=== PATIENT | male | born 1970 | race Caucasian/White ===

== ENCOUNTER 2017-07-31 05:19 | Observation (INO) | payer BC, SELFPAY ==
[2017-07-31 06:05] LABS: Absolute Monocytes 0.6 K/uL (0.1-1.3); Absolute Neutrophil 3.8 K/uL (1.8-8.0); Basophils % 0.9 % (0-1.3); Eosinophils % 3.9 % (0-4.4); Hematocrit 48.9 % (39.6-49.0); Lymphocytes % 29.7 % (15.3-44.8); MCH 32.3 pg (27.0-35.0); MPV 7.6 fL (7.6-11.3); Monocytes % 9.1 % (3.3-12.3); RBC Red Blood Cell Count 5.04 M/uL (4.33-5.43)
[2017-07-31 06:35] LABS: BUN Blood Urea Nitrogen 8 mg/dL (7-18); Bicarbonate 27 mmol/L (21-32); CKMB Creatine Kinase MB < 1.0 ng/mL (0.3-3.6); Creatine Phosphokinase 120 U/L (39-308); Glucose Level 98 mg/dL (74-106); Potassium 3.9 mmol/L (3.5-5.1); Sodium Level 139 mmol/L (136-145)
--- NOTE | 2017-07-31 06:44 | ER ---
Nurse's Notes [facility] Name: Juan River Jr Age: 46 yrs Sex: Male : 1970 Arrival Date: 07/31/2017 Time: 05:23 Bed 6 Private MD: Haim Oneal R Diagnosis: Chest pain, unspecified Presentation: 07/31 05:32 Presenting complaint: Patient states: "I have chest tightness, on and off, for months rv that radiates to my left arm.". Transition of care: patient was not received from another setting of care. Onset of symptoms was July 31, 2017 at 04:30. Risk Assessment: Do you want to hurt yourself or someone else? Patient reports no desire to harm self or others. Initial Sepsis Screen: Does the patient meet any 2 criteria? No. Patient's initial sepsis screen is negative. Does the patient have a suspected source of infection? No. Patient's initial sepsis screen is negative. Care prior to arrival: None. 05:32 Method Of Arrival: Ambulatory rv 05:32 Acuity: MARCO ANTONIO 4 rv 05:38 Acuity: MARCO ANTONIO 3 ao Triage Assessment: 06:00 General: Appears in no apparent distress. comfortable, Behavior is calm, cooperative. rv Pain: Complains of pain in chest Pain radiates to left arm. Cardiovascular: Reports chest pain, since waking up. Historical: - Allergies: 05:44 No Known Allergies; rv - Home Meds: 05:44 None [Active]; rv - PMHx: 05:44 Anxiety; Asthma; Hypertension; TIA; rv - PSHx: 05:44 shoulder surgery; rv - Immunization history:: Adult Immunizations up to date. - Social history:: Smoking status: Patient uses tobacco products, denies chronic smoking, but will smoke occasionally, Patient/guardian denies using alcohol, street drugs. - Ebola Screening: : Patient negative for fever greater than or equal to 101.5 degrees Fahrenheit, and additional compatible Ebola Virus Disease symptoms Patient denies exposure to infectious person Patient denies travel to an Ebola-affected area in the 21 days before illness onset. - Family history:: not pertinent. - Hospitalizations: : No recent hospitalization is reported. Screenin:59 Abuse screen: Denies threats or abuse. Denies injuries from another. Nutritional rv screening: No deficits noted. Tuberculosis screening: No symptoms or risk factors identified. Fall Risk None identified. Assessment: 05:57 Pain: Complains of pain in chest Pain radiates to left arm Pain began 1 hour ago. rv Neuro: Level of Consciousness is awake, alert, obeys commands, Oriented to person, place, time, situation. Cardiovascular: Capillary refill < 3 seconds Rhythm is regular. Respiratory: Airway is patent. GI: No signs and/or symptoms were reported involving the gastrointestinal system. : No signs and/or symptoms were reported regarding the genitourinary system. EENT: No signs and/or symptoms were reported regarding the EENT system. Derm: Skin is intact. 06:20 Reassessment: Patient appears in no apparent distress at this time. Patient and/or rv family updated on plan of care and expected duration. Pain level reassessed. Patient is alert, oriented x 3, equal unlabored respirations, skin warm/dry/pink. patient comfortable lying on bed. 06:46 Reassessment: Patient appears in no apparent distress at this time. Patient and/or rv family updated on plan of care and expected duration. Pain level reassessed. Patient is alert, oriented x 3, equal unlabored respirations, skin warm/dry/pink. patient is awake. on high back rest. comfortable. awaiting admitting orders. 07:21 Reassessment: Patient appears in no apparent distress at this time. Patient and/or iw family updated on plan of care and expected duration. Pain level reassessed. Patient is alert, oriented x 3, equal unlabored respirations, skin warm/dry/pink. pt requesting breakfast tray, order placed Patient denies pain at this time. Vital Signs: 05:46 BP 149 / 102; Pulse 82; Resp 16; Temp 98.6(O); Pulse Ox 95% on R/A; Weight 102.06 kg; rv 06:20 BP 132 / 98; Pulse 73; Resp 16; Pulse Ox 97% on R/A; rv 07:21 BP 147 / 85; Pulse 67; Resp 16; Pulse Ox 97% on R/A; Pain 0/10; iw ED Course: 05:23 Patient arrived in ED. al2 05:24 Haim Oneal MD is Private Physician. al2 05:33 Paulie Aviles, MARII is Primary Nurse. bp 05:34 Triage completed. rv 05:35 Justice Jiménez MD is Attending Physician. rn 05:57 X-ray completed. Portable x-ray completed in exam room. Patient tolerated procedure kw well. 05:57 XRAY Chest (1 view) In Process Unspecified. EDMS 05:59 Inserted saline lock: 20 gauge in right antecubital area, using aseptic technique. rv Patient maintains SpO2 saturation greater than 95% on room air. 06:00 Arm band placed on left wrist. rv 06:01 Patient has correct armband on for positive identification. Placed in gown. Bed in low rv position. Call light in reach. Side rails up X2. ground mixer on. Pulse ox on. NIBP on. 06:43 Justice Jiménez MD is Hospitalizing Provider. rn 06:43 Haim Oneal MD is Hospitalizing Provider. rn Administered Medications: 06:44 Drug: Aspirin Chewable Tablet 324 mg Route: PO; rv Outcome: 06:43 Decision to Hospitalize by Provider. rn 09:13 Patient left the ED. iw Signatures: Dispatcher [employer] EDMS Carley Rodarte RN RN iw Justice Jiménez MD MD rn Whitley, Kimberlee kw Ortiz, Alex, RN RN ao Peltier, Brian, RN RN bp Love, Angelica al2 Vicente, Ronaldo RN RN rv
--- NOTE | 2017-07-31 06:44 | EDPHYS ---
Physician Documentation [facility] Name: Juan River Jr Age: 46 yrs Sex: Male : 1970 Arrival Date: 07/31/2017 Time: 05:23 Bed 6 Private MD: Haim Oneal R ED Physician Justice Jiménez HPI: 07/31 05:44 This 46 yrs old Male presents to ER via Ambulatory with complaints of Chest rn Pain, Numbness Of Arm. 05:44 The patient or guardian reports chest pain that is located primarily in the anterior rn chest wall, left. Onset: 2 month(s) ago. The pain radiates to the left arm. Associated signs and symptoms: Pertinent positives: None. Pertinent negatives: diaphoresis, lightheadedness, near syncope, palpitations, recent travel, shortness of breath, syncope, vomiting. The chest pain is described as sharp, squeezing. Duration: The patient or guardian reports multiple episodes, that are intermittent, the episodes last approximately 5 minute(s). Modifying factors: The symptoms are alleviated by nothing. the symptoms are aggravated by nothing. Severity of pain: At its worst the pain was mild in the emergency department the pain has improved. The patient has experienced similar episodes in the past. Reports a couple of months of worsening chest tightness, intermittent, lasts 5-10 min, radiates to left arm, + tingling of left arm . 05:44 Chest tightness happening more frequently, states normal stress test 6 years ago when rn had TIA.. States these episodes feel different compared to previous anxiety attacks.. Historical: - Allergies: 05:44 No Known Allergies; rv - Home Meds: 05:44 None [Active]; rv - PMHx: 05:44 Anxiety; Asthma; Hypertension; TIA; rv - PSHx: 05:44 shoulder surgery; rv - Immunization history:: Adult Immunizations up to date. - Social history:: Smoking status: Patient uses tobacco products, denies chronic smoking, but will smoke occasionally, Patient/guardian denies using alcohol, street drugs. - Ebola Screening: : Patient negative for fever greater than or equal to 101.5 degrees Fahrenheit, and additional compatible Ebola Virus Disease symptoms Patient denies exposure to infectious person Patient denies travel to an Ebola-affected area in the 21 days before illness onset. - Family history:: not pertinent. - Hospitalizations: : No recent hospitalization is reported. ROS: 05:44 Constitutional: Negative for fever, chills, and weight loss, Eyes: Negative for injury, rn pain, redness, and discharge, Neck: Negative for injury, pain, and swelling, Cardiovascular: Negative for palpitations, and edema, Respiratory: Negative for shortness of breath, cough, wheezing, and pleuritic chest pain, Abdomen/GI: Negative for abdominal pain, nausea, vomiting, diarrhea, and constipation, MS/Extremity: Negative for injury and deformity, Skin: Negative for injury, rash, and discoloration, Neuro: Negative for headache, weakness, and seizure. Exam: 05:44 Constitutional: This is a well developed, well nourished patient who is awake, alert, rn and in no acute distress. Head/Face: Normocephalic, atraumatic. Neck: Trachea midline, no thyromegaly or masses palpated, and no cervical lymphadenopathy. Supple, full range of motion without nuchal rigidity, or vertebral point tenderness. No Meningismus. Cardiovascular: Regular rate and rhythm with a normal S1 and S2. No gallops, murmurs, or rubs. Normal PMI, no JVD. No pulse deficits. Respiratory: Lungs have equal breath sounds bilaterally, clear to auscultation and percussion. No rales, rhonchi or wheezes noted. No increased work of breathing, no retractions or nasal flaring. Abdomen/GI: Soft, non-tender, with normal bowel sounds. No distension or tympany. No guarding or rebound. No evidence of tenderness throughout. MS/ Extremity: Pulses equal, no cyanosis. Neurovascular intact. Full, normal range of motion. Equal circumference. Neuro: Awake and alert, GCS 15, oriented to person, place, time, and situation. Cranial nerves II-XII grossly intact. Motor strength 5/5 in all extremities. Sensory grossly intact. Cerebellar exam normal. Normal gait. Vital Signs: 05:46 BP 149 / 102; Pulse 82; Resp 16; Temp 98.6(O); Pulse Ox 95% on R/A; Weight 102.06 kg; rv 06:20 BP 132 / 98; Pulse 73; Resp 16; Pulse Ox 97% on R/A; rv 07:21 BP 147 / 85; Pulse 67; Resp 16; Pulse Ox 97% on R/A; Pain 0/10; iw MDM: 05:35 Patient medically screened. rn 06:41 Differential diagnosis: acute myocardial infarction, acute pericarditis, anxiety, rn coronary artery disease gastroesophageal reflux disease (GERD), pancreatitis, pleurisy, pneumothorax, stable angina, unstable angina. Data reviewed: vital signs, nurses notes, lab test result(s), EKG, radiologic studies, and as a result, I will admit patient. Counseling: I had a detailed discussion with the patient and/or guardian regarding: the historical points, exam findings, and any diagnostic results supporting the discharge/admit diagnosis, lab results, radiology results, the need for further work-up and treatment in the hospital. Admission orders: after a detailed discussion of the patient's condition and case, the admit orders are written by me. ED course: Consulted with maribel Riddle for cardiac eval.. 07/31 05:43 Order name: Basic Metabolic Panel; Complete Time: 06:39 rn 07/31 05:43 Order name: CBC with Diff; Complete Time: 06:16 rn 07/31 05:43 Order name: Ckmb; Complete Time: 06:39 rn 07/31 05:43 Order name: CPK; Complete Time: 06:39 rn 07/31 05:43 Order name: Troponin (emerg Dept Use Only); Complete Time: 06:29 rn 07/31 05:43 Order name: XRAY Chest (1 view) rn 07/31 05:43 Order name: EKG; Complete Time: 05:44 rn 07/31 05:43 Order name: Cardiac monitoring; Complete Time: 05:47 rn 07/31 05:43 Order name: EKG - Nurse/Tech; Complete Time: 05:47 rn 07/31 05:43 Order name: IV Saline Lock; Complete Time: 05:52 rn 07/31 05:43 Order name: Labs collected and sent; Complete Time: 05:52 rn 07/31 05:43 Order name: O2 Per Protocol; Complete Time: 05:47 rn 07/31 07:20 Order name: Diet Heart Healthy; Complete Time: 07:21 iw 07/31 05:43 Order name: O2 Sat Monitoring; Complete Time: 05:47 rn Administered Medications: 06:44 Drug: Aspirin Chewable Tablet 324 mg Route: PO; rv Disposition: 07/31/17 06:43 Hospitalization ordered by Haim Oneal for Observation. Preliminary diagnosis is Chest pain, unspecified. - Bed requested for Telemetry/MedSurg (observation). - Status is Observation. iw - Condition is Stable. - Problem is an ongoing problem. - Symptoms have improved. UTI on Admission? No Signatures: Dispatcher [employer] EDMS Lise Red Carley Toscano RN RN iw Justice Jiménez MD MD rn Botello, Elizabeth eb Vicente, Ronaldo, RN RN rv Corrections: (The following items were deleted from the chart) 06:52 06:43 Hospitalization Ordered by Haim Oneal MD for Observation. Preliminary diagnosis eb is Chest pain, unspecified. Bed requested for Telemetry/MedSurg (observation). Status is Observation. Condition is Stable. Problem is an ongoing problem. Symptoms have improved. UTI on Admission? No. rn 08:11 06:52 07/31/2017 06:43 Hospitalization Ordered by Haim Oneal MD for Observation. bd Preliminary diagnosis is Chest pain, unspecified. Bed requested for Telemetry/MedSurg (observation). Status is Observation. Condition is Stable. Problem is an ongoing problem. Symptoms have improved. UTI on Admission? No. eb 09:13 08:11 07/31/2017 06:43 Hospitalization Ordered by Haim Oneal MD for Observation. iw Preliminary diagnosis is Chest pain, unspecified. Bed requested for Telemetry/MedSurg (observation). Status is Observation. Condition is Stable. Problem is an ongoing problem. Symptoms have improved. UTI on Admission? No. bd
[2017-07-31] MEDS ORDERED: ASPIRIN 81 MG CHEWABLE TABLET ONE (06:45)
--- NOTE | 2017-07-31 08:17 | RAD REPORT ---
EXAM DESCRIPTION: RAD - Chest Single View - 07/31/2017 5:57 am CLINICAL HISTORY: CHEST PAIN Chest pain. COMPARISON: Chest Pa And Lat (2 Views) dated 08/23/2016; Chest Single View dated 08/22/2016; Chest Sin gle View dated 08/19/2016; CHEST SINGLE VIEW dated 04/13/2015 FINDINGS: Portable technique limits examination quality. The lungs are grossly clear. The heart is normal in size. No displaced fractures. IMPRESSION: No acute intrathoracic process suspected.
[2017-07-31] MEDS ORDERED: ONDANSETRON 4 MG/2 ML VIAL IV PRN (09:25)
[2017-07-31] MEDS ORDERED: ACETAMINOPHEN 500 MG TAB PO PRN (09:25)
[2017-07-31] MEDS: ASPIRIN EC 81 MG TAB PO SCH (09:25)
[2017-07-31 09:43] VITALS: BMI 33.2
[2017-07-31] MEDS: ENOXAPARIN 100 MG/ML SYR SQ SCH ×2 (14:36→20:18)
--- NOTE | 2017-07-31 15:42 | EKG ---
Test Date: 2017-07-31 Test Time: 05:34:34 Marketing Support Specialist: DAINA MEASUREMENT RESULTS: Intervals: Rate: 74 [place]: 146 QRSD: 90 QT: 364 QTc: 404 [place]: P: -6 [place]: 146 QRS: 42 T: 34 INTERPRETIVE STATEMENTS: Normal sinus rhythm with sinus arrhythmia Normal ECG Compared to ECG 08/22/2016 03:57:09 No significant changes Electronically Signed On 07-31-17 15:40:33 CDT by Salomón Parish
--- NOTE | 2017-07-31 18:09 | CON ---
Date of Consultation: 07/31/[address] Oneal' service on 07/31/2017. I saw the patient on 07/31/2017. Reason For Consultation: Chest pain. History Of Present Illness: Mr. River is a 46-year-old male, who has no previous cardiac history. He has a history of TIA 2 years ago with negative workup. Has a history of hypertension, asthma, a nd anxiety. Came in with a sharp stabbing chest pain over the left anterior wall with numbness in analisa th hands that is unrelated to the pain per se. This pain did not radiate anywhere. He did not have any nausea, vomiting, diaphoresis, shortness of breath, PND, orthopnea, pedal edema, or syncope. By the time I saw him, he had a normal EKG, normal chest x-ray, and normal troponin. Allergies: NONE. Review of Systems: Negative. Social History: Negative. Family History: Noncontributory. Medications: At home are none. Physical Examination: Vital Signs: Stable. He was afebrile. HEENT: Negative. Neck: Supple without any bruit, lymphadenopathy, JVD, or thyromegaly. Chest: Clear to auscultation and percussion. Cardiac: Revealed a regular rhythm and rate without any murmurs, gallops, or rubs. Abdomen: Benign. Extremities: Revealed no clubbing, cyanosis, or edema. Diagnostic Data: Normal. Impression And Plan: Atypical chest pain, sounds pleuritic or may be anxiety related. I think the n umbness in his hands may be positional and certainly could be related to carpal tunnel syndrome. His blood pressure is well controlled. He has had a history of transient ischemic attack with negative workup. He has asthma that is well controlled. I recommended a nuclear stress test on Mr. River, but he was very hesitant to have any injectable medication in him. We will suffice with a normal EK G that he can have a normal routine stress test in the morning before he goes home. KIT/DOMINIQUE Voice ID: [id number] Report ID: [id number]
[2017-08-01] MEDS: ASPIRIN EC 81 MG TAB PO SCH (09:01)
[2017-08-01] MEDS: ENOXAPARIN 100 MG/ML SYR SQ SCH (09:01)
[2017-08-01 09:17] VITALS: O2SAT 96
--- NOTE | 2017-08-01 09:25 | EKG ---
Test Date: 2017-08-01 Test Time: 07:13:31 Block Captain: THOMAS MEASUREMENT RESULTS: Intervals: Rate: 66 DC: 158 QRSD: 92 QT: 390 QTc: 408 [place]: P: 15 DC: 158 QRS: 65 T: 52 INTERPRETIVE STATEMENTS: Normal sinus rhythm Early repolarization Normal ECG Compared to ECG 07/31/2017 05:34:34 Early repolarization now present Sinus arrhythmia no longer present Electronically Signed On 08-01-17 09:24:17 CDT by Eduar Mcnair
--- NOTE | 2017-08-01 09:56 | TREADMILL ---
70% H.R.: 122 85% H.R.: 148 90% H.R.: 157 100% H.R.: 174 DX: CHEST PAIN Date of Study: 08/01/2017 Ht: 5 9 Wt: 225 lb 0 oz Consulting Physician: CHINA MEDICATIONS: TYLENOL, ASPIRIN, LOVENOX, ZOFRAN HISTORY: 46 YEAR OLD MALE WITH COMPLAINTS OF CHEST PAIN. HISTORY OF HYPERTENSION, TRANSIENT ISCHEMIC ATTACK AND ASTHMA. PHYSICIAL EXAMINATION: RESTING B.P.: 135/94 RESTING H.R.: 78 RESTING EKG: EARLY REPOLARIZATION ABNORMALITY, OTHERWISE NORMAL. PROTOCOL: FLORENTIN ROUTINE EXERCISE TIME: 11:06 MAXIMUM HEART RATE: 150 86 % OF PREDICTED B.P. AT PEAK STRESS: 152/108 H.R. AT 1 MINUTE POST EXERCISE: 137 IMPRESSION: ROUTINE FLORENTIN STOPPED DUE TO FATIGUE AND TARGET HEART RATE BEING REACHED. NO CHEST PAIN. NO SUPRAVENTRICULAR OR VENTRICULAR TACHYCARDIA NOTED. NO ST DEPRESSION WITH STRESS. EARLY REPOLARIZATION NORMALIZED WITH STRESS. NORMAL STRESS TEST.
[2017-08-01 12:11] VITALS: BP 124/79; TEMP 98.6
--- NOTE | 2017-08-01 18:19 | HP ---
Date of Admission: 07/31/2017 Chief Complaint: Chest pain. History Of Present Illness: A 46-year-old male was brought to the emergency room with recurrent epis odes of left precordial chest pain with radiation and tingling in the arms. The patient had evaluati on done in the emergency room. There was no evidence of any acute injury. The patient is admitted f or observation. Past Medical History: History of anxiety and labile hypertension. Family History: Noncontributory. Personal History: No known drug allergies. Current Medicines: None. Review of Systems: No history of fever, chills, or rigors. Physical Examination: General: Revealed 46-year-old male, fully alert and oriented. Vital Signs: Normal. HEENT: Negative. Neck: Supple. JVD negative. Chest: Clear. Heart: Regular. Abdomen: Soft, nontender. Extremities: No edema. Neurological: Negative. Laboratory Data: Troponin normal. CBC normal. Chem profile normal. Chest x-ray normal. Assessment: 1.Chest pain. 2.Labile hypertension. 3.Anxiety. Plan: The patient is scheduled for stress test today after which plan will be decided. UCHE/DOMINIQUE Voice ID: [id number]
== END 2017-08-01 14:09 | disposition home or self-care (01) ==
LOC: ER 05:19 → ERHOLD 06:44 → 4TH 08:25
PROVIDERS: ADMIT Internal Medicine; ATTEND Internal Medicine
DX: R07.89 Other chest pain (principal); F41.9 Anxiety disorder, unspecified; R09.89 Other specified symptoms and signs involving the circulatory and respiratory systems
CPT/HCPCS: 36415; 71045; 80048; 82550; 82553; 84484; 85025; 93005; 93017; 99285; G0378; J1650

== ENCOUNTER 2021-05-31 01:17 | Observation (INO) | payer OTHER ==
--- OUTSIDE RECORDS SUMMARY | 2021-05-31 01:21 | XMS REPORT | Continuity of Care Document ---
:1970 Author Organization [facility] t Address [address] [place] [address] Care Team Providers Name Role Phone Oscar GARLAND MACHINE OPERATOR Attending Clinician Tommy, Care Clinic Attending Clinician Unavailable Kathleen GARLAND MACHINE OPERATOR Attending Clinician KATHLEEN Attending Clinician Unavailable Payers Payer Name Policy Type Policy Number Effective Date Expiration Date S ource Problems Condition Condition Condition Status Onset Resolution Last Treating Co mments Source Name Details Category Date Date Treatment Clinician Date Seasonal Seasonal Disease Active Unive rs allergies allergies 5-14 ity of 00:00: [place] 00 [facility] [place] Allergies, Adverse Reactions, Alerts Allergy Allergy Status Severity Reaction(s) Onset Inactive Treating Comm ents Source Name Type Date Date Clinician NO KNOWN Drug [facility] Social History Social Habit Start Date Stop Date Quantity Comments Source History of tobacco [facility] Sex Assigned At [facility] Smoking Status Start Date Stop Date Source Former smoker 2019-06-19 00:00:00 2019-06-19 00:00:00 [facility] [place] Medications Ordered Filled Start Stop Current Ordering Indication Dosage Frequency Signature Comments Components Source Medication Medication Date Date Medication? Clinician (SIG) Name Name fluticasone 2019-0 Yes [id number] 1{spray Use 1 Univers 27.5 5-14 } Arma in ity of mcg/actuati 00:00: each [place] on nasal 00 nostril Medical spray daily. Branch cetirizine Yes [id number] 10mg Take 1 U nivers 10 mg 5-14 tablet by ity of tablet 00:00: mouth [place] 00 daily. Medical Branch fluticasone Yes [id number] 1{spray Use 1 Univers 27.5 5-14 } Arma in ity of mcg/actuati 00:00: each [place] on nasal 00 nostril Medical spray daily. Branch cetirizine 2019-0 Yes [id number] 10mg Take 1 U nivers 10 mg 5-14 tablet by ity of tablet 00:00: mouth [place] 00 daily. Medical Branch fluticasone 2019-0 Yes [id number] 1{spray Use 1 Univers 27.5 5-14 } Arma in ity of mcg/actuati 00:00: each [place] on nasal 00 nostril Medical spray daily. Branch cetirizine 0 Yes [id number] 10mg Take 1 U nivers 10 mg 5-14 tablet by ity of tablet 00:00: mouth [place] 00 daily. Medical Branch fluticasone 2019-0 Yes [id number] 1{spray Use 1 Univers 27.5 5-14 } Arma in ity of mcg/actuati 00:00: each [place] on nasal 00 nostril Medical spray daily. Branch cetirizine Yes [id number] 10mg Take 1 U nivers 10 mg 5-14 tablet by ity of tablet 00:00: mouth [place] 00 daily. Medical Branch naproxen 2020- No 550mg Take 1 Unive rs sodium 7-16 05-14 tablet by ity of (ANAPROX) 00:00[place] 00:[place] 550 mg 00 :00 (two) Medical tablet times Branch daily with meals. traMADOL 2020- No 50mg Take 1 Univer s (ULTRAM) 50 7-16 05-14 tablet by it y of mg tablet 00:00: 00:00 mouth [place] 00 :00 every 6 Medical (six) Branch hours as needed for Pain (scale 7-10). tiZANidine 2020- No 4mg Take 1 Univ ers (ZANAFLEX) 7-16 05-14 capsule by it y of 4 mg 00:00: 00:00 mouth 3 [place] capsule 00 :00 (three) Medical times Branch daily as needed for Muscle Spasms. naproxen 2020- No 550mg Take 1 Unive rs sodium 7-16 05-14 tablet by ity of (ANAPROX) 00:00: 00:00 [place] 550 mg 00 :00 (two) Medical tablet times Branch daily with meals. traMADOL 2019- No [facility] 08-20 tablet by it y of mg tablet 00:00: 00:00 mouth [place] 00 :00 every 6 Medical (six) Branch hours as needed for Pain (scale 7-10). tiZANidine 2019- No 4mg Take 1 [facility] ers (ZANAFLEX) 08-20 capsule by it y of 4 mg 00:00: 00:00 mouth 3 [place] capsule 00 :00 (three) Medical times Branch daily as needed for Muscle Spasms. Vital Signs Vital Name Observation Time Observation Value Comments Source Systolic blood 2019-06-19 16:19:00 120 mm[facility]Hg[facility] 2019-06-19 16:19:00 87 mm[Hg] [facility] Heart rate 2019-06-19 16:19:00 84 /min [facility] Body temperature 2019-06-19 16:19:00 37.22 Marjan [facility] Respiratory rate 2019-06-19 16:19:00 18 /min [facility] Body height 2019-06-19 16:19:00 175.3 cm [facility] Body weight 2019-06-19 16:19:00 99.791 kg [facility] BMI 2019-06-19 16:19:00 32.49 kg/m2 [facility] Oxygen saturation in 2019-06-19 16:19:00 98 /min [facility] blood by [facility] Pulse oximetry Branch Procedures Procedure Date / Time Performing Clinician Source Performed POCT GRP A STREP 2019-06-19 16:28:00 King Reyna [facility] (MOLECULAR) [facility] CORONAVIRUS COVID-19 2019-06-19 16:13:00 King Reyna [facility] TESTING [facility] Encounters Start End Encounter Admission Attending Care Care Encounter Source Date/Time Date/Time Type Type Clinicians Facility Department ID 2019-06-20 2019-06-20 Telephone JD Moore [id number] [facility] 00:00:00 00:00:00 Yelitza FELICIANO [id number] it y of HOSPITAL [id number] [place] [id number] [address] 2019-06-19 2019-06-19 Urgent Pob1, Acute Care Clinic [facility] [id number] Univers 11:08:58 12:10:41 King Bernardo [id number] ity of [place] [id number] [place] as Professio [phone] Al dical nal [address] 2019-06-19 2019-06-19 Outpatient R KATHLEEN [facility] [id number] Univers 11:00:00 11:00:00 KING snell [facility] 2019-06-19 2019-06-19 Jacqui Oscar, [facility] [id number] Univers 00:00:00 00:00:00 (Out) Yelitza Barton [id number] it y of [place] [id number] [place] as Professio [id number] [facility] nal [address] Results Test Description Test Time Test Comments Results Result Comments Source CORONAVIRUS COVID-19 TESTING 2019-06-20 05:28:00 Test Item Value Reference Range Interpretation Comme nts SARS-CoV-2 (test code = 64757-7) Not Detected Not Detected BEV (test code = BEV) [employer] SARS-CoV-2 Assay is a real-time RT-PCR test intended for the qualitative detection of RNA from SARS-CoV-2 from nasopharyngeal (LENS POLISHER HAND) specimens. It is used under Emergency Use Authorization (EUA) by FDA. A positive result is indicative of the presence of SARS-CoV-2 RNA. ?Clinical correlation with patient history and other diagnostic information is necessary to determine patient infection status. A negative (Not Detected) result does not preclude SARS-CoV-2 infection. Clinical correlation with patient history and other diagnostic information should be used in patient management decisions. Invalid: Please collect a new specimen for repeat patient testing if clinically indicated. Lab Interpretation (test code = Normal 17620-2) [facility]-19 [id number] 05:28:00 Test Item Value Reference Range Interpretation Comments SARS-CoV-2 (test code = Not Detected Not Detected 37079-9) BEV (test code = BEV) [employer] SARS-CoV-2 Assay is a real-time RT-PCR test intended for the qualitative detection of RNA from SARS-CoV-2 from nasopharyngeal (LENS POLISHER HAND) specimens. It is used under Emergency Use Authorization (EUA) by FDA. A positive result is indicative of the presence of SARS-CoV-2 RNA. ?Clinical correlation with patient history and other diagnostic information is necessary to determine patient infection status. A negative (Not Detected) result does not preclude SARS-CoV-2 infection. Clinical correlation with patient history and other diagnostic information should be used in patient management decisions. Invalid: Please collect a new specimen for repeat patient testing if clinically indicated. Lab Interpretation Normal (test code = 02176-4) [facility] GRP A STREP (MOLECULAR)2019-06-19 16:36:00 Test Item Value Reference Range Interpretation Comments POCT GP A STREP (test Negative Negative - code = 18083-0) Negative BEV (test code = BEV) accurate development and interpretation of all internal controls Lab Interpretation Normal (test code = 06554-5) [facility] GRP A STREP (MOLECULAR)2019-06-19 16:36:00 Test Item Value Reference Range Interpretation Comments POCT GP A STREP (test Negative Negative - code = 04072-1) Negative BEV (test code = BEV) accurate development and interpretation of all internal controls Lab Interpretation Normal (test code = 15339-0) [facility]
[2021-05-31] MEDS ORDERED: DIPHENHYDRAMINE 50 MG/ML VIAL ONE (02:17)
[2021-05-31] MEDS ORDERED: dexAMETHasone 10 MG/ML VIAL ONE ×2 (02:17→03:11)
[2021-05-31] MEDS ORDERED: NA CHLORIDE 0.9% 1,000 ML ONE (02:18)
[2021-05-31] MEDS ORDERED: CLINDAMYCIN 900MG/D5W 900 MG/50 ML IVPB IV ONE (02:18)
[2021-05-31] MEDS ORDERED: NA CHLORIDE 0.9% 50 ML ONE (02:18)
[2021-05-31] MEDS ORDERED: CEFTRIAXONE 2000 MG/VIAL ONE (02:18)
[2021-05-31] MEDS ORDERED: FAMOTIDINE 20 MG/2 ML VIAL IV ONE (02:18)
[2021-05-31 02:43] LABS: Absolute Lymphocytes (CBC) 1.1 K/uL (0.7-4.9); Hematocrit 45.4 % (39.6-49.0); Lymphocytes % 9.2 % (15.3-44.8); MPV 7.8 fL (7.6-11.3); RBC Red Blood Cell Count 4.72 M/uL (4.33-5.43)
[2021-05-31 02:51] LABS: Albumin 3.5 g/dL (3.4-5.0); Bilirubin Total 0.5 mg/dL (0.2-1.0); Protein, Total 7.2 g/dL (6.4-8.2)
--- NOTE | 2021-05-31 03:59 | EDPHYS ---
Physician Documentation [facility] Name: Juan River Jr Age: 50 yrs Sex: Male : 1970 Arrival Date: 05/31/2021 Time: 01:20 Bed 5 Private MD: ED Physician Eriberto Adair HPI: 05/31 01:47 This 50 yrs old Male presents to ER via Unassigned with complaints of Sore arleth Throat. 01:47 The patient presents with sore throat. The patient describes throat pain as constant, arleth raw, scratchy. Onset: The symptoms/episode began/occurred 3 day(s) ago. Severity of symptoms: At their worst the symptoms were mild, in the emergency department the symptoms are unchanged. Modifying factors: The symptoms are alleviated by nothing, the symptoms are aggravated by fluids, sleeping. Associated signs and symptoms: Pertinent positives: chills, cough, fever. The patient has not experienced similar symptoms in the past. Historical: - Allergies: 01:50 No Known Allergies; bb - PMHx: 01:50 Anxiety; Asthma; Hypertension; TIA; bb - Immunization history:: Client reports receiving the 2nd dose of the Covid vaccine, Moderna. - Social history:: Smoking status: Patient denies any tobacco usage or history of. - Family history:: not pertinent. ROS: 01:50 Constitutional: Negative for fever, chills, and weight loss, Eyes: Negative for injury, arleth pain, redness, and discharge, Neck: Negative for injury, pain, and swelling, Cardiovascular: Negative for chest pain, palpitations, and edema, Respiratory: Negative for shortness of breath, cough, wheezing, and pleuritic chest pain, Abdomen/GI: Negative for abdominal pain, nausea, vomiting, diarrhea, and constipation, Back: Negative for injury and pain, : Negative for injury, bleeding, discharge, and swelling, MS/Extremity: Negative for injury and deformity, Skin: Negative for injury, rash, and discoloration, Neuro: Negative for headache, weakness, numbness, tingling, and seizure, Psych: Negative for depression, anxiety, suicide ideation, homicidal ideation, and hallucinations, Allergy/Immunology: Negative for hives, rash, and allergies, Endocrine: Negative for neck swelling, polydipsia, polyuria, polyphagia, and marked weight changes, Hematologic/Lymphatic: Negative for swollen nodes, abnormal bleeding, and unusual bruising. 01:50 ENT: Positive for difficulty swallowing. 01:50 Neck: Positive for swollen nodes, tenderness, of the right submandibular area and right sternocleidomastoid. Exam: 01:50 Constitutional: This is a well developed, well nourished patient who is awake, alert, arleth and in no acute distress. Head/Face: Normocephalic, atraumatic. Eyes: Pupils equal round and reactive to light, extra-ocular motions intact. Lids and lashes normal. Conjunctiva and sclera are non-icteric and not injected. Cornea within normal limits. Periorbital areas with no swelling, redness, or edema. Neck: Trachea midline, no thyromegaly or masses palpated, and no cervical lymphadenopathy. Supple, full range of motion without nuchal rigidity, or vertebral point tenderness. No Meningismus. Chest/axilla: Normal chest wall appearance and motion. Nontender with no deformity. No lesions are appreciated. Cardiovascular: Regular rate and rhythm with a normal S1 and S2. No gallops, murmurs, or rubs. Normal PMI, no JVD. No pulse deficits. Respiratory: Lungs have equal breath sounds bilaterally, clear to auscultation and percussion. No rales, rhonchi or wheezes noted. No increased work of breathing, no retractions or nasal flaring. Abdomen/GI: Soft, non-tender, with normal bowel sounds. No distension or tympany. No guarding or rebound. No evidence of tenderness throughout. Back: No spinal tenderness. No costovertebral tenderness. Full range of motion. Male : Normal genitalia with no discharge or lesions. Skin: Warm, dry with normal turgor. Normal color with no rashes, no lesions, and no evidence of cellulitis. MS/ Extremity: Pulses equal, no cyanosis. Neurovascular intact. Full, normal range of motion. Neuro: Awake and alert, GCS 15, oriented to person, place, time, and situation. Cranial nerves II-XII grossly intact. Motor strength 5/5 in all extremities. Sensory grossly intact. Cerebellar exam normal. Normal gait. Psych: Awake, alert, with orientation to person, place and time. Behavior, mood, and affect are within normal limits. 01:50 ENT: Posterior pharynx: Tonsils: enlarged on the right, with erythema, Uvula: edematous, erythema, swelling, erythema, that is mild, exudate, is not appreciated, peritonsillar mass, is not appreciated, Voice: is muffled. Vital Signs: 01:48 BP 151 / 88; Pulse 107; Resp 16 S; Temp 98.5(O); Pulse Ox 94% on R/A; Weight 106.59 kg bb (R); Height 5 ft. 9 in. (175.26 cm) (R); Pain 9/10; 02:31 BP 132 / 86; Pulse 104; Resp 18 S; Pulse Ox 100% on R/A; as6 03:51 BP 131 / 90; Pulse 111; Resp 20 S; Pulse Ox 94% on R/A; as6 01:48 Body Mass Index 34.70 (106.59 kg, 175.26 cm) bb MDM: 01:40 Patient medically screened. [facility] 01:52 Differential diagnosis: echovirus infection, epiglottitis, group A strep tonsillitis, arleth laryngitis, mononucleosis, peritonsillar abscess pharyngitis, retropharyngeal abcess tonsillitis, upper respiratory infection. Data reviewed: vital signs, nurses notes, lab test result(s), radiologic studies, CT scan. Data interpreted: copywriting intern: rate is 107 beats/min, rhythm is atrial fibrillation, Pulse oximetry: on room air is 94 %. Test interpretation: by ED physician or midlevel provider: plain radiologic studies. Counseling: I had a detailed discussion with the patient and/or guardian regarding: the historical points, exam findings, and any diagnostic results supporting the discharge/admit diagnosis, lab results, radiology results. 05/31 01:45 Order name: CBC with Diff; Complete Time: 03:00 [facility] 05/31 01:45 Order name: Comprehensive Metabolic Panel; Complete Time: 03:00 [facility] 05/31 01:45 Order name: Strep; Complete Time: 03:22 [facility] 05/31 03:03 Order name: Throat Culture [facility] 05/31 04:07 Order name: COVID-19/FLU A+B (Document "Date of Onset" if Symptomatic) as6 05/31 05:44 Order name: COVID-19/FLU A+B; Complete Time: 09:20 [facility] 05/31 01:46 Order name: CT Soft Tissue Neck W/contr arleth 05/31 01:47 Order name: Chest Single View XRAY arleth Administered Medications: 02:25 Drug: Pepcid (famotidine) 20 mg Route: IVP; Site: right antecubital; as6 03:51 Follow up: Response: No adverse reaction as6 02:25 Drug: Benadryl (diphenhydrAMINE) 25 mg Route: IVP; Site: right antecubital; as6 03:51 Follow up: Response: No adverse reaction as6 02:25 Drug: Clindamycin 900 mg Route: IVPB; Infused Over: 30 mins; Site: right antecubital; as6 03:51 Follow up: Response: No adverse reaction; IV Status: Completed infusion; IV Intake: 25izym8 02:26 Drug: NS 0.9% 1000 ml Route: IV; Rate: 1 bolus; Site: right antecubital; as6 03:50 Follow up: Response: No adverse reaction; IV Status: Completed infusion; IV Intake: as6 1000ml 02:26 Drug: Rocephin (cefTRIAXone) 2 grams Route: IV; Rate: per protocol; Site: right as6 antecubital; 03:50 Follow up: Response: No adverse reaction; IV Status: Completed infusion; IV Intake: 77hnnw6 02:26 Drug: Decadron - Dexamethasone 10 mg Route: IVP; Site: right antecubital; as6 03:50 Follow up: Response: No adverse reaction as6 03:50 Drug: Decadron - Dexamethasone 10 mg Route: IVP; Site: right antecubital; as6 03:51 Follow up: Response: No adverse reaction as6 Disposition Summary: 05/31/21 03:58 Hospitalization Ordered Hospitalization Status: Observation arleth Provider: Milad Jiménez cha Condition: Fair arleth Problem: new arleth Symptoms: have improved arleth Bed/Room Type: Standard arleth Location: [facility] ER HOLD(05/31/21 04:29) mw Room Assignment: ERHOLD-(05/31/21 04:29) mw Diagnosis - Hypertrophy of tonsils - peritonsillitis/Uvulitis arleth - Dysphagia arleth - Fever, unspecified arleth Discharge Instructions: - Discharge Summary Sheet mw2 Forms: - Medication Reconciliation Form arleth - SBAR form arleth - Family Work Release mw2 Signatures: Dispatcher [employer] EDMS Bong Mirelesha, RN RN mw Giovany, Eriberto, MD MD arleth Carlson, Maren, RN RN bb Jiménez, Justice, MD MD rn Slawson, Chidi, RN RN as6 Corrections: (The following items were deleted from the chart) : 03:58 Telemetry/MedSurg (observation) [facility] : 03:58 [facility]
--- NOTE | 2021-05-31 03:59 | ER ---
Nurse's Notes [facility] Name: Juan River Jr Age: 50 yrs Sex: Male : 1970 Arrival Date: 05/31/2021 Time: 01:20 Bed 5 Private MD: Diagnosis: Hypertrophy of tonsils-peritonsillitis/Uvulitis;Dysphagia;Fever, unspecified Presentation: 05/31 01:48 Chief complaint: Patient states: he has had a sore throat since Sunday started on bb antibiotics yesterday but the swelling and pain seems worse. Coronavirus screen: At this time, the client does not indicate any symptoms associated with coronavirus-19. Ebola Screen: No symptoms or risks identified at this time. Initial Sepsis Screen: Does the patient meet any 2 criteria? No. Patient's initial sepsis screen is negative. Does the patient have a suspected source of infection? No. Patient's initial sepsis screen is negative. Risk Assessment: Do you want to hurt yourself or someone else? Patient reports no desire to harm self or others. Onset of symptoms was May 29, 2021. 01:48 Method Of Arrival: Ambulatory bb 01:48 Acuity: MARCO ANTONIO 3 bb Historical: - Allergies: 01:50 No Known Allergies; bb - PMHx: 01:50 Anxiety; Asthma; Hypertension; TIA; bb - Immunization history:: Client reports receiving the 2nd dose of the Covid vaccine, Moderna. - Social history:: Smoking status: Patient denies any tobacco usage or history of. - Family history:: not pertinent. Screenin:31 Abuse screen: Denies threats or abuse. Denies injuries from another. Nutritional as6 screening: No deficits noted. Tuberculosis screening: No symptoms or risk factors identified. Fall Risk None identified. Assessment: 02:26 General: Appears in no apparent distress. Behavior is calm, cooperative. Pain: as6 Complains of pain in neck. Neuro: Level of Consciousness is awake, alert, obeys commands, Oriented to person, place, time, situation. Cardiovascular: Capillary refill < 3 seconds Patient's skin is warm and dry. Respiratory: Airway is patent Trachea midline Respiratory effort is even, unlabored, Respiratory pattern is regular, symmetrical. Respiratory: Reports cough that is Breath sounds are clear. EENT: Throat is reddened has enlarged tonsils on right with gag reflex present. 03:51 Reassessment: Patient and/or family updated on plan of care and expected duration. Pain as6 level reassessed. Patient states symptoms have improved. Vital Signs: 01:48 BP 151 / 88; Pulse 107; Resp 16 S; Temp 98.5(O); Pulse Ox 94% on R/A; Weight 106.59 kg bb (R); Height 5 ft. 9 in. (175.26 cm) (R); Pain 9/10; 02:31 BP 132 / 86; Pulse 104; Resp 18 S; Pulse Ox 100% on R/A; as6 03:51 BP 131 / 90; Pulse 111; Resp 20 S; Pulse Ox 94% on R/A; as6 01:48 Body Mass Index 34.70 (106.59 kg, 175.26 cm) bb ED Course: 01:20 Patient arrived in ED. bp1 01:38 Chidi Reyes, MARII is Primary Nurse. as6 01:40 Eriberto Adair MD is Attending Physician. arleth 01:50 Triage completed. bb 01:50 Arm band placed on Patient placed in an exam room, on a stretcher, on pulse oximetry. bb Family accompanied patient. 02:02 Chest Single View XRAY In Process Unspecified. EDMS 02:05 Inserted saline lock: 20 gauge in right antecubital area, using aseptic technique. as6 Blood collected. 02:11 CBC with Diff Sent. as6 02:11 Strep Sent. as6 02:11 Comprehensive Metabolic Panel Sent. as6 02:31 Bed in low position. Call light in reach. Side rails up X2. Adult w/ patient. Pulse ox as6 on. NIBP on. Warm blanket given. 03:16 CT Soft Tissue Neck W/contr In Process Unspecified. EDMS 03:55 Milad Jiménez MD is Hospitalizing Provider. arleth 06:18 No provider procedures requiring assistance completed. Patient admitted, IV remains in as6 place. Administered Medications: 02:25 Drug: Pepcid (famotidine) 20 mg Route: IVP; Site: right antecubital; as6 03:51 Follow up: Response: No adverse reaction as6 02:25 Drug: Benadryl (diphenhydrAMINE) 25 mg Route: IVP; Site: right antecubital; as6 03:51 Follow up: Response: No adverse reaction as6 02:25 Drug: Clindamycin 900 mg Route: IVPB; Infused Over: 30 mins; Site: right antecubital; as6 03:51 Follow up: Response: No adverse reaction; IV Status: Completed infusion; IV Intake: 54flir0 02:26 Drug: NS 0.9% 1000 ml Route: IV; Rate: 1 bolus; Site: right antecubital; as6 03:50 Follow up: Response: No adverse reaction; IV Status: Completed infusion; IV Intake: as6 1000ml 02:26 Drug: Rocephin (cefTRIAXone) 2 grams Route: IV; Rate: per protocol; Site: right as6 antecubital; 03:50 Follow up: Response: No adverse reaction; IV Status: Completed infusion; IV Intake: 11nych4 02:26 Drug: Decadron - Dexamethasone 10 mg Route: IVP; Site: right antecubital; as6 03:50 Follow up: Response: No adverse reaction as6 03:50 Drug: Decadron - Dexamethasone 10 mg Route: IVP; Site: right antecubital; as6 03:51 Follow up: Response: No adverse reaction as6 Intake: 03:50 IV: 1000ml; Total: 1000ml. as6 03:50 IV: 50ml; Total: 1050ml. as6 03:51 IV: 50ml; Total: 1100ml. as6 Outcome: 03:58 Decision to Hospitalize by Provider. arleth 06:19 Admitted to ER Hold. Please see [facility] for further documentation. as6 06:19 Condition: stable 06:19 Instructed on the need for admit. 12:47 Patient left the ED. bp Signatures: Dispatcher [employer] Eriberto Tovar MD MD cha Ballard, Brenda, RN RN Paulie Jernigan RN RN bp Paniauga, Brittany bp1 Slawson, Ashby, RN RN as6
--- NOTE | 2021-05-31 04:14 | P.HP ---
Certification for Inpatient Patient admitted to: Observation With expected LOS: <2 Midnights Patient will require the following post-hospital care: None Practitioner: I am a practitioner with admitting privileges, knowledge of patient current condition, hospital course, and medical plan of care. Services: Services provided to patient in accordance with Admission requirements found in Title 42 Section 412.3 of the Code of Federal Regulations Patient History Date of Service: 05/31/21 Reason for admission: Peritonsillitis History of Present Illness: 50-year-old male with history of hypertension, TIA, asthma presents emergency department for dysphagia, fever. Patient reports he noticed he was having pain in his throat starting on Sunday, was started on antibioticsamoxicillin with his primary care doctor which she has taken 2 doses of. This evening he felt like he is having difficulty speaking and swallowing therefore came to the emergency department he last had fever yesterday T-max 100.8 his labs were significant for mild leukocytosis. His CT neck soft tissue with contrast demonstrates abnormal increased hypodensity within the right tonsil extending at the level of the right vallecula possibility of prominent tonsil could be consideration no evidence for peritonsillar abscess. Patient with muffled voice, pain with swallowing he is tolerating his secretions well at this time maintaining his airway. ED provider consulted with ENT who wishes patient be admitted in observation and will see in the morning. If you are stil l he can have an MRI Allergies No Known Drug Allergies Allergy (Verified 07/31/17 11:47) Unknown Home Medications: NK [No Home Meds] 07/31/17 - Past Medical/Surgical History Diabetic: No -: TIA -: HTN -: Anxiety -: HTn on meds x 1 1/2 yrs -: rotator cuff repair -: infant eye surg- crossed eyes Psychosocial/ Personal History: Patient lives at home with his family - Family History Father -: Lung disease Notes: COPD Mother -: Heart disease - Social History Smoking Status: Never smoker Alcohol use: Yes CD- Drugs: No Caffeine use: Yes Place of Residence: Home Review of Systems 10-point ROS is otherwise unremarkable General: Fever, Chills, Malaise ENT: Throat Pain, Throat Swelling, As per HPI Physical Examination - Physical Exam General: Alert, In no apparent distress, Oriented x3 HEENT: Atraumatic, PERRLA, Mucous membr. moist/pink, Other (Edematous uvula, erythema/edema to the right tonsil), EOMI, Sclerae nonicteric Neck: Supple, 2+ carotid pulse no bruit, No LAD, Without JVD or thyroid abnormality Respiratory: Clear to auscultation bilaterally, Normal air movement Cardiovascular: Regular rate/rhythm, Normal S1 S2 Gastrointestinal: Normal bowel sounds, No tenderness Musculoskeletal: No tenderness Integumentary: No rashes Neurological: Normal gait, Normal speech, Normal strength at 5/5 x4 extr, Normal tone, Normal affect Lymphatics: No axilla or inguinal lymphadenopathy - Studies Laboratory Data (last 24 hrs) 05/31/21 02:08: Sodium 136, Potassium 4.0, BUN 10, Creatinine 0.96, Glucose 108 H, Total Bilirubin 0.5, AST 14 L, ALT 32, Alkaline Phosphatase 64 05/31/21 02:08: WBC 12.3 H, Hgb 15.3, Hct 45.4, Plt Count 227 Microbiology Data (last 24 hrs): 05/31/21 02:08 Throat Group A Streptococcus Rapid Screen - Final Assessment and Plan - Plan Assessment: Right peritonsillitis/uveitis Hypertension Asthma History of TIA Plan: Right peritonsillitis/uveitis: N.p.o., IV fluids, scheduled Decadron, clindamycin. ENT consult in place appreciate further input. Tolerating secretions well able to maintain his own airway voice is mildly muffled. Hypertension: Obtain and continue medication when appropriate Asthma: As needed inhalers History of TIA: Not on daily aspirin reports history of TIA 10 to 15 years ago. DVT PPX: Lovenox Code status: Full Discharge Plan: Home Plan to discharge in: 24 Hours - Advance Directives Does patient have a Living Will: No Does patient have a Durable POA for Healthcare: No - Code Status/Comfort Care Code Status Assessed: Yes (Full code) Critical Care: No Time Spent Managing Pts Care (In Minutes): 55
[2021-05-31] MEDS ORDERED: MORPHINE 2 MG/ML SYR IV PRN (05:20)
[2021-05-31] MEDS ORDERED: NA CHLORIDE 0.9% 1,000 ML IV SCH (05:20)
[2021-05-31] MEDS ORDERED: ONDANSETRON 4 MG/2 ML VIAL IV PRN (05:20)
[2021-05-31 05:44] LABS: SARS-COV-2 RT PCR NEGATIVE (NEGATIVE)
[2021-05-31 06:19] VITALS: BMI 34.7
[2021-05-31] MEDS ORDERED: ENOXAPARIN 40 MG/0.4 ML SQ SCH (09:00)
[2021-05-31] MEDS ORDERED: CLINDAMYCIN INJ 600 MG in NA CHLORIDE 0.9% 50 ML IV SCH (09:00)
[2021-05-31] MEDS ORDERED: dexAMETHasone 4 MG/ML VIAL IV SCH (09:00)
[2021-05-31] MEDS ORDERED: CLINDAMYCIN 600MG/D5W 600 MG/50 ML BAG IV ONE (10:07)
[2021-05-31] MEDS ORDERED: dexAMETHasone 4 MG/ML VIAL ONE (10:07)
[2021-05-31 10:17] VITALS: BP 126/77
--- NOTE | 2021-05-31 11:21 | RAD REPORT ---
EXAM DESCRIPTION: RAD - Chest Single View - 05/31/2021 2:00 am CLINICAL HISTORY: 50 years, Male, COUGH COMPARISON: None. FINDINGS: Single view of the chest was obtained portable. No prior films are available for compariso n. The cardiomediastinal silhouette demonstrate to be unremarkable. The heart demonstrate to be w ithin normal limits, and is accentuated by the presence of bilateral pericardial fat pads. The heart is not enlarged. Costophrenic angles are sharp. No areas of consolidation or masses are seen. The rest of the soft tissue and bony structures demonstrate to be unremarkable. IMPRESSION: No acute cardiopulmonary disease identified. Electronically signed by: Chucho Beard MD 05/31/2021 2:19 AM CDT Due to temporary technical issues with the PACS/Fluency reporting system, reports are being signed by the in house radiologist without review as a courtesy to ensure prompt reporting. The interpreting r adiologist is fully responsible for the content of the report.
--- NOTE | 2021-05-31 11:23 | RAD REPORT ---
EXAM DESCRIPTION: CT - Soft Tissue Neck W/Contr - 05/31/2021 6:55 am CLINICAL HISTORY: 50 years, Male, dysphagia COMPARISON: None. TECHNIQUE: Multiple transaxial tomograms of the neck were obtained from the base of the skull to the pulmonary apex utilizing 3 mm slice thickness at 3 mm interval reconstruction after the administrati on of 100 cc of Omnipaque 350 at a rate of 3.0 cc/s. In addition coronal and sagittal spinal reformat s were generated and reviewed. This exam was performed according to our departmental dose-optimization protocol, which includes auto mated exposure control, adjustment of the mA and/or kV according to patient size and/or use of iterat robin reconstruction technique. There is abnormal enlargement of the right tonsil with a soft tissue component measuring approximatel y 2.4 x 1.9 x 3.2 cm on axial image 32/80 and sagittals 62/124. There is no evidence for significant hypodensity and/or abscess formation. The rest of the mucosa of the base of the tongue, vallecula, pi riform sinus and vocal cords demonstrate to be within normal limits. There is slight prominence of th e soft tissue palate/uvula. Skull base demonstrate to be normal. Nasopharynx, hypopharynx is normal. Parapharyngeal space dem onstrate to be normal. Parotid and submandibular glands are normal. Tiny nondiagnostic lymph nodes are seen within the posterior neck. Paravertebral elements are gross ly unremarkable. There is a single prominent right jugular area measuring 10 mm on image 40/80. The vocal cord and thyroid gland and visualized portions of the lung apices demonstrate to be within normal limits. IMPRESSION: ABNORMAL INCREASE HYPODENSITY WITHIN THE RIGHT TONSIL EXTENDING UP TO THE LEVEL OF THE R IGHT VALLECULA. POSSIBILITY OF PROMINENT TONSIL COULD BE OF CONSIDERATION NO EVIDENCE FOR PERITONSILL AR ABSCESS. CORRELATE WITH DIRECT VISUALIZATION. SINGLE PROMINENT RIGHT JUGULAR LYMPH NODE. Electronically signed by: Chucho Beard MD 05/31/2021 3:42 AM CDT Due to temporary technical issues with the PACS/Fluency reporting system, reports are being signed by the in house radiologist without review as a courtesy to ensure prompt reporting. The interpreting r adiologist is fully responsible for the content of the report.
[2021-05-31 13:23] VITALS: TEMP 98.5
[2021-05-31 13:26] VITALS: O2SAT 94
--- NOTE | 2021-05-31 20:18 | CON ---
Date of Consultation: 05/31/2021 Additional Referring Physician: Emergency Medicine. Chief Complaint: Severe sore throat and throat swelling. History Of Present Illness: The patient is a pleasant 50-year-old male who presented acutely to the emergency room after experiencing a 3-day history of worsening sore throat, predominantly involving t he right side of his throat and extending into the uvula. 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 Currentl y, he states that he is having much improved odynophagia since admission. He states that the pain wa s 10/10 when he arrived to the emergency room and then he was started on clindamycin and IV steroids, and by the time I saw him the next morning, his pain had decreased to about 4/10. He is able to swa llow liquids and solids, which has improved from onset and he denies any airway difficulty, although when he initially presented to the emergency room, he was having moderate throat swelling and he was worried that his airway would close off. He denies rhinorrhea, postnasal drip, cough, sneezing, feve r, lethargy, or other ENT complaints today. Past Medical History: Denies. Medications: None. Allergies: NO KNOWN DRUG ALLERGIES. Social History: The patient dips tobacco and denies alcohol or illicit drugs. Review of Systems: Constitutional: Negative for fever, body aches, or lethargy. Eyes: Negative for epiphora, eye pain, or visual disturbance. Ears: Negative for otorrhea, otalgia, or mastoid pain. Nose: Negative for rhinorrhea, nasal congestion, or postnasal drip. Throat: Positive for right-sided throat pain extending into the uvula with dysphagia and odynophagia . Neck: Negative for neck swelling or tenderness. Physical Examination: Vital Signs: Stable. Temperature is 98.5, pulse ox is 98% on room air, pulse is 78, respirations ar e 14, and blood pressure is 138/72. Head: Atraumatic, normocephalic. Eyes: PERRLA/EOMI. Ears: External auditory canals patent. Tympanic membranes intact. Nose: Midline septum. Moist intranasal mucosa. No rhinorrhea or exudate. Oral Cavity: Yee type 2/3 palate with evidence of erythema involving the uvula and extending la terally to the right tonsil. No evidence of abscess or deviation of uvula or retropharyngeal edema. Airways patent. NECK: Supple. Trachea midline. No thyromegaly or lymphadenopathy palpated. Imaging: CT soft tissue neck with contrast was reviewed and demonstrated soft tissue edema involving the right oropharynx extending to the right tonsil, but no evidence of phlegmon or abscess. Right j ugular lymph node noted at level 2. Diagnoses: 1.Acute pharyngitis. 2.Acute right tonsillitis. 3.Acute uvulitis. 4.Tobacco use. Recommendations: 1.He has responded quite well to clindamycin and steroids. Thus, we will convert to oral Medrol Dos epak and clindamycin. 2.He will follow up in 3-5 days in my outpatient clinic for further recommendations and recheck. Thank you, Dr. Adair and Dr. Jiménez, for this most interesting consultation. CE/DOMINIQUE Voice ID: [id number] Report ID: [id number]
== END 2021-05-31 12:48 | disposition home or self-care (01) ==
LOC: ER 01:17 → ERHOLD 03:58
PROVIDERS: ADMIT Hospitalist; ATTEND Hospitalist
DX: J03.90 Acute tonsillitis, unspecified (principal); K12.2 Cellulitis and abscess of mouth; J45.909 Unspecified asthma, uncomplicated; I10 Essential (primary) hypertension; F41.9 Anxiety disorder, unspecified; F17.220 Nicotine dependence, chewing tobacco, uncomplicated; Z86.73 Personal history of transient ischemic attack (TIA), and cerebral infarction without residual deficits; Z20.822 Contact with and (suspected) exposure to COVID-19; Z83.6 Family history of other diseases of the respiratory system; Z82.49 Family history of ischemic heart disease and other diseases of the circulatory system
CPT/HCPCS: 96365; 87070; 85025; 36415; 87081; 80053; 0240U; 70491; 71045; 96375; 99285; Q9967; J1100 ×3; J1200; J7030; J0696; J3490; G0378 ×2

== ENCOUNTER 2021-09-28 20:38 | Emergency (ER) | payer OTHER ==
--- OUTSIDE RECORDS SUMMARY | 2021-09-28 20:41 | XMS REPORT | Continuity of Care Document ---
:1970 Author Organization [facility] t Address [address] [place] [address] Care Team Providers Name Role Phone Yelitza Flores Attending Clinician Tommy, Acute Care Clinic Attending Clinician Unavailable King Corrales Attending Clinician KING WANG Attending Clinician Unavailable Payers Payer Name Policy Type Policy Number Effective Date Expiration Date S ource Problems Condition Condition Condition Status Onset Resolution Last Treating Co mments Source Name Details Category Date Date Treatment Clinician Date Seasonal Seasonal Disease Active Unive rs allergies allergies 5-14 ity of 00:00: [place] 00 Medical Branch Allergies, Adverse Reactions, Alerts Allergy Allergy Status Severity Reaction(s) Onset Inactive Treating Comm ents Source Name Type Date Date Clinician NO KNOWN Drug Active Univers ALLERGIE Class ity of [facility] Social History Social Habit Start Date Stop Date Quantity Comments Source History of tobacco Chews Tobacco Uni versity of [place] use Medical [place] Sex Assigned At [facility] Branch Smoking Status Start Date Stop Date Source Former smoker 2019-06-19 00:00:00 2019-06-19 00:00:00 [facility] Branch Medications Ordered Filled Start Stop Current Ordering Indication Dosage Frequency Signature Comments Components Source Medication Medication Date Date Medication? Clinician (SIG) Name Name fluticasone 2019-0 Yes [id number] 1{spray Use 1 Univers 27.5 5-14 } [place] in ity of mcg/actuati 00:00: each [place] on nasal 00 nostril Medical spray daily. Branch cetirizine Yes [id number] 10mg Take 1 U nivers 10 mg 5-14 tablet by ity of tablet 00:00: mouth [place] 00 daily. Medical Branch fluticasone 2019-0 Yes [id number] 1{spray Use 1 Univers 27.5 5-14 } [place] in ity of mcg/actuati 00:00: each [place] on nasal 00 nostril Medical spray daily. Branch cetirizine 2019-0 Yes [id number] 10mg Take 1 U nivers 10 mg 5-14 tablet by ity of tablet 00:00: mouth [place] 00 daily. Medical Branch fluticasone 2019-0 Yes [id number] 1{spray Use 1 Univers 27.5 5-14 } [place] in ity of mcg/actuati 00:00: each [place] on nasal 00 nostril Medical spray daily. Branch cetirizine 2019- Yes [id number] 10mg Take 1 U nivers 10 mg 5-14 tablet by ity of tablet 00:00: mouth [place] 00 daily. Medical Branch fluticasone 0 Yes [id number] 1{spray Use 1 Univers 27.5 5-14 } [place] in ity of mcg/actuati 00:00: each [place] on nasal 00 nostril Medical spray daily. Branch cetirizine Yes [id number] 10mg Take 1 U nivers 10 mg 5-14 tablet by ity of tablet 00:00: mouth [place] 00 daily. Medical Branch naproxen 2020- No 550mg Take 1 Unive rs sodium 7-16 05-14 tablet by ity of (ANAPROX) 00:00: 00:[place] 550 mg 00 :00 (two) Medical tablet times Branch daily with meals. traMADOL 2019- No 50mg Take 1 Univer s (ULTRAM) [...] meals. traMADOL 2019- No 50mg Take 1 [facility] s (ULTRAM) 50 08-20 tablet by it y of mg tablet 00:00: 00:00 mouth [place] 00 :00 every 6 Medical (six) Branch hours as needed for Pain (scale 7-10). tiZANidine 2019- No 4mg Take 1 [facility] ers (ZANAFLEX) 08-20 capsule by it y of 4 mg 00:00: 00:00 mouth 3 [place] capsule 00 :00 (three) Medical times Branch daily as needed for Muscle Spasms. Vital Signs Vital Name Observation Time Observation Value Comments Source Systolic blood 2019-06-19 16:19:00 120 mm[facility]Hg] [facility] 2019-06-19 16:19:00 87 [facility]Hg[facility] 2019-06-19 16:19:00 84 /min [facility] Body temperature 2019-06-19 16:19:00 37.22 Marjan [facility] Respiratory rate 2019-06-19 16:19:00 18 /min [facility] Body height 2019-06-19 16:19:00 175.3 cm [facility] Body weight 2019-06-19 16:19:00 99.791 kg [facility] BMI 2019-06-19 16:19:00 32.49 kg/m2 [facility] Oxygen saturation in 2019-06-19 16:19:00 98 /min [facility] Arterial blood by [facility] Pulse oximetry Branch Procedures Procedure Date / Time Performing Clinician Source Performed POCT GRP A STREP 2019-06-19 16:28:00 King Wang [facility] (MOLECULAR) [facility] CORONAVIRUS COVID-19 2019-06-19 16:13:00 King Wang [facility] TESTING [facility] Encounters Start End Encounter Admission Attending Care Care Encounter Source Date/Time Date/Time Type Type Clinicians Facility Department ID 2019-06-20 2019-06-20 Telephone JD Moore [id number] Univers 00:00:00 00:00:00 Yelitza FELICIANO [id number] it y of [facility] [id number] [place] [phone] [address] 2019-06-19 2019-06-19 Urgent Pob1, Acute Care Clinic [facility] [id number]. [id number] Univers 11:08:58 12:10:41 King Bernardo [id number] ity of [place] [id number] [place] Professio [phone] Pa dical nal [address] [place] [address] 2019-06-19 2019-06-19 Outpatient R KATHLEEN [facility] [id number] Univers 11:00:00 11:00:00 KING snell [facility] 2019-06-19 2019-06-19 [facility] [id number] Univers 00:00:00 00:00:00 (Out) Yelitza [facility] [id number] it y of [place] [id number] [place] Professio [phone] Pa dical nal [address] [place] [address] Results Test Description Test Time Test Comments Results Result Comments Source CORONAVIRUS COVID-19 TESTING 2019-06-20 05:28:00 Test Item Value Reference Range Interpretation Comme nts SARS-CoV-2 (test code = 03176-5) Not Detected Not Detected BEV (test code = BEV) [employer] SARS-CoV-2 Assay is a real-time RT-PCR test intended for the qualitative detection of RNA from SARS-CoV-2 from nasopharyngeal (RESEARCH INSTRUMENTATION TECHNICIAN) specimens. It is used under Emergency Use [...] indicated. Lab Interpretation (test code = Normal 96672-6) [facility] [place] [facility] [id number] 05:28:00 Test Item Value Reference Range Interpretation Comments SARS-CoV-2 (test code = Not Detected Not Detected 26755-7) BEV (test code = BEV) [employer] SARS-CoV-2 Assay is a real-time RT-PCR test intended for the qualitative detection of RNA from SARS-CoV-2 from nasopharyngeal (RESEARCH INSTRUMENTATION TECHNICIAN) specimens. It is used under Emergency Use [...] indicated. Lab Interpretation Normal (test code = 17308-8) [facility] GRP A STREP (MOLECULAR)2019-06-19 16:36:00 Test Item Value Reference Range Interpretation Comments POCT GP A STREP (test Negative Negative - code = 46178-5) Negative BEV (test code = BEV) accurate development and interpretation of all internal controls Lab Interpretation Normal (test code = 04079-1) [facility] GRP A STREP (MOLECULAR)2019-06-19 16:36:00 Test Item Value Reference Range Interpretation Comments POCT GP A STREP (test Negative Negative - code = 60339-1) Negative BEV (test code = BEV) accurate development and interpretation of all internal controls Lab Interpretation Normal (test code = 36465-0) [facility] [place] [facility]
--- NOTE | 2021-09-28 21:57 | RAD REPORT ---
EXAM DESCRIPTION: RAD - Chest Single View - 09/28/2021 9:52 pm CLINICAL HISTORY: DYSPNEA COMPARISON: Chest Single View dated 05/31/2021; Chest Single View dated 07/31/2017; Chest Pa And Lat ( 2 Views) dated 08/23/2016; Chest Single View dated 08/22/2016 FINDINGS: Lines: None. Lungs: No evidence of edema or pneumonia. Pleural: No significant pleural effusions or pneumothorax. Cardiac: The heart size is within normal limits. Bones: No acute fractures. Other: IMPRESSION: No acute cardiopulmonary disease.
[2021-09-28] MEDS ORDERED: NA CHLORIDE 0.9% 1,000 ML ONE (22:19)
[2021-09-28] MEDS ORDERED: METHYLPREDNISOLONE 125 MG INJ ONE (22:19)
[2021-09-28] MEDS ORDERED: IPRATROPIUM BROM 0.5MG/2.5ML ONE (22:19)
[2021-09-28] MEDS ORDERED: ALBUTEROL 2.5 MG/3 ML NEB SOL ONE ×2 (22:19→23:43)
[2021-09-28] MEDS ORDERED: MAGNESIUM SULFATE 1 gm IVPB 1 GM/100 ML BAG IV ONE (22:19)
--- NOTE | 2021-09-28 23:59 | ER ---
Nurse's Notes [facility] Name: Juan River Jr Age: 51 yrs Sex: Male : 1970 Arrival Date: 09/28/2021 Time: 20:44 Bed 10 Private MD: Diagnosis: Wheezing Presentation: 09/28 20:48 Chief complaint: Patient states: I have seasonal allergies and I have had a cough and bm7 wheezing for the last few days and today is the worst. Coronavirus screen: Client presents with at least one sign or symptom that may indicate coronavirus-19. Standard/surgical mask placed on the client. Ebola Screen: No symptoms or risks identified at this time. Initial Sepsis Screen: Does the patient meet any 2 criteria? RR > 20 per min. HR > 90 bpm. Does the patient have a suspected source of infection? Yes: Productive cough/pneumonia. Risk Assessment: Do you want to hurt yourself or someone else? Patient reports no desire to harm self or others. Onset of symptoms is unknown. Care prior to arrival: Medication(s) given: symbicort. 20:48 Method Of Arrival: Ambulatory bm7 20:48 Acuity: MARCO ANTONIO 3 bm7 Triage Assessment: 20:50 General: Appears in no apparent distress. comfortable, Behavior is calm, cooperative, bm7 appropriate for age. Pain: Denies pain. EENT: No deficits noted. No signs and/or symptoms were reported regarding the EENT system. Neuro: No deficits noted. Cardiovascular: No deficits noted. Chest pain is denied. Respiratory: Reports shortness of breath on exertion cough that is non-productive, Airway is patent Respiratory effort is even, unlabored, Respiratory pattern is regular, symmetrical, Breath sounds with wheezes bilaterally. Onset: The symptoms/episode began/occurred gradually, the patient has moderate shortness of breath. GI: No deficits noted. No signs and/or symptoms were reported involving the gastrointestinal system. : No deficits noted. No signs and/or symptoms were reported regarding the genitourinary system. Derm: No deficits noted. No signs and/or symptoms reported regarding the dermatologic system. Musculoskeletal: No deficits noted. No signs and/or symptoms reported regarding the musculoskeletal system. Historical: - Allergies: 20:49 No Known Allergies; bm7 - Home Meds: 20:50 Unable to obtain [Active]; bm7 - PMHx: 20:50 allergies; bm7 - PSHx: 20:50 shoulder; bm7 - Immunization history:: Adult Immunizations up to date, Client reports receiving the 2nd dose of the Covid vaccine, Client reports receiving the 1st dose of the Covid vaccine. - Social history:: Smoking status: Patient denies any tobacco usage or history of. Patient uses alcohol, on a daily basis. Screenin:00 Abuse screen: Denies threats or abuse. Denies injuries from another. Nutritional kb3 screening: No deficits noted. Tuberculosis screening: No symptoms or risk factors identified. Fall Risk None identified. Assessment: 20:52 Reassessment: EMBEDDED DEVELOPER at bedside to assess. Respiratory: Breath sounds with wheezes bm7 bilaterally. 22:00 Pain: Denies pain. Cardiovascular: Rhythm is regular. kb3 22:00 Respiratory: Breath sounds with wheezes bilaterally. kb3 22:50 Respiratory: Breath sounds with wheezes bilaterally. Wheezing has diminished kb3 bilaterally after breathing treatment but is still present upon expiration. 23:18 General: Pt resting comfortably, no distress noted. IVF infusing. kb3 09/29 00:10 Reassessment: Patient is alert, oriented x 3, equal unlabored respirations, skin bb warm/dry/pink. pt verbalized understanding of and agrees to plan of care discharge instructions given pt ambulated with steady gait to exit. Vital Signs: 09/28 20:47 BP 116 / 73; Pulse 110; Resp 24; Temp 98.2(TE); Pulse Ox 96% on R/A; Weight 108.86 kg bm7 (R); Height 5 ft. 9 in. (175.26 cm); Pain 0/10; 09/29 00:11 BP 115 / 70; Pulse 107; Resp 18 S; Pulse Ox 95% on R/A; bb 09/28 20:47 Body Mass Index 35.44 (108.86 kg, 175.26 cm) bm7 ED Course: 09/28 20:44 Patient arrived in ED. bp1 20:49 Triage completed. bm7 20:50 Arm band placed on right wrist. bm7 20:55 [facility] Hoover [facility]C [facility] kb 20:55 Eriberto Adair MD is Attending Physician. kb 21:52 Yocasta Dwyer, MARII is Primary Nurse. kb3 21:54 Chest Single View XRAY In Process Unspecified. EDMS 22:00 Patient has correct armband on for positive identification. Bed in low position. Call kb3 light in reach. Side rails up X2. 22:00 No provider procedures requiring assistance completed. kb3 22:06 Inserted saline lock: 20 gauge in right antecubital area, using aseptic technique. kb3 Blood collected. 09/29 00:12 IV discontinued, intact, bleeding controlled, No redness/swelling at site. Pressure bb dressing applied. Administered Medications: 09/28 22:20 Drug: NS 0.9% 1000 ml Route: IV; Rate: 1000 ml; Site: right antecubital; kb3 22:52 Follow up: Response: No adverse reaction kb3 22:20 Drug: SOLU-Medrol (methylPrednisoLONE) 125 mg Route: IVP; Site: right antecubital; kb3 22:51 Follow up: Response: No adverse reaction kb3 22:20 Drug: DuoNeb (albuterol 2.5 mg, ipratropium 0.5 mg) (3:1) (2.5 mg - 0.5 mg) 3 ml Route: kb3 Nebulizer; 23:48 Follow up: Response: No adverse reaction kb3 22:20 Drug: Magnesium Sulfate 1 grams Route: IVPB; Infused Over: 1 hrs; Site: right kb3 antecubital; 22:51 Follow up: Response: No adverse reaction kb3 23:37 Drug: Albuterol 2.5 mg Route: Inhalation; kb3 23:48 Follow up: Response: No adverse reaction kb3 Medication: 22:00 VIS not applicable for this client. kb3 Outcome: 23:59 Discharge ordered by . kb 09/29 00:12 Discharged to home ambulatory. bb Condition: stable Discharge instructions given to patient, Instructed on discharge instructions, follow up and referral plans. medication usage, Demonstrated understanding of instructions, follow-up care, medications, Prescriptions given X 2. 00:12 Patient left the ED. bb Signatures: Dispatcher [employer] EDMS Paola Hoover, EMIL MCNAIR-Maren De Leon RN RN Jacqueline Almanzar Brittany RN RN bm7 Yocasta Dwyer, RN RN kb3 Corrections: (The following items were deleted from the chart) 08/24 20:51 20:49 PMHx: Hypertension; [facility] 20:51 20:49 PMHx: Anxiety; [facility] 20:51 20:49 PMHx: Asthma; [facility] 20:51 20:49 PMHx: TIA; [facility] 20:53 20:47 Pulse 110bpm; Resp 24bpm; Pulse Ox 96% RA; Temp 98.2F Temporal; 108.86 kg 7 Reported; Height 5 ft. 9 in.; BMI: 35.4; Pain 0/10; 7 22:50 22:49 Respiratory: Breath sounds with wheezes bilaterally. kb3 kb3 22:51 22:00 Respiratory: Breath sounds with wheezes bilaterally. Wheezing has diminished kb3 bilaterally after breathing treatment but is still present upon expiration kb3
--- NOTE | 2021-09-29 | EDPHYS ---
Physician Documentation [facility] Name: Juan River Jr Age: 51 yrs Sex: Male : 1970 Arrival Date: 09/28/2021 Time: 20:44 Bed 10 Private MD: ED Physician Eriberto Adair HPI: 09/29 00:02 This 51 yrs old Male presents to ER via Ambulatory with complaints of Breathing kb Difficulty. 00:02 The patient presents to the emergency department with wheezing, Current therapy: kb symbicort. Onset: The symptoms/episode began/occurred 3 day(s) ago. Modifying factors: The symptoms are alleviated by nothing, the symptoms are aggravated by nothing. Associated signs and symptoms: The patient has no apparent associated signs or symptoms. Severity of symptoms: At their worst the symptoms were moderate in the emergency department the symptoms are unchanged. The patient has experienced similar episodes in the past, multiple times. The patient has not recently seen a physician. He reports he has seasonal allergies that cause him to have episodes of wheezing and shortness of breath once or twice a year. States his episode of wheezing and shortness of breath started a few days ago and is gotten worse today.. Historical: - Allergies: 09/28 20:49 No Known Allergies; bm7 - Home Meds: 20:50 Unable to obtain [Active]; bm7 - PMHx: 20:50 allergies; bm7 - PSHx: 20:50 shoulder; bm7 - Immunization history:: Adult Immunizations up to date, Client reports receiving the 2nd dose of the Covid vaccine, Client reports receiving the 1st dose of the Covid vaccine. - Social history:: Smoking status: Patient denies any tobacco usage or history of. Patient uses alcohol, on a daily basis. ROS: 09/29 00:01 Constitutional: Negative for fever, chills, and weight loss. kb Respiratory: Positive for shortness of breath, wheezing. All other systems are negative. Exam: 00:01 Constitutional: This is a well developed, well nourished patient who is awake, alert, kb and in no acute distress. Head/Face: Normocephalic, atraumatic. ENT: Moist Mucous membranes Cardiovascular: Regular rate and rhythm with a normal S1 and S2. No gallops, murmurs, or rubs. No pulse deficits. Skin: Warm, dry with normal turgor. Normal color. MS/ Extremity: Pulses equal, no cyanosis. Neurovascular intact. Full, normal range of motion. Neuro: Awake and alert, GCS 15, oriented to person, place, time, and situation. Moves all extremities. Normal gait. Psych: Awake, alert, with orientation to person, place and time. Behavior, mood, and affect are within normal limits. 00:01 Respiratory: the patient does not display signs of respiratory distress, Respirations: normal, Breath sounds: wheezing: expiratory that is moderate, is heard diffusely. Vital Signs: 09/28 20:47 BP 116 / 73; Pulse 110; Resp 24; Temp 98.2(TE); Pulse Ox 96% on R/A; Weight 108.86 kg bm7 (R); Height 5 ft. 9 in. (175.26 cm); Pain 0/10; 09/29 00:11 BP 115 / 70; Pulse 107; Resp 18 S; Pulse Ox 95% on R/A; bb 09/28 20:47 Body Mass Index 35.44 (108.86 kg, 175.26 cm) bm7 MDM: 09/28 20:55 Patient medically screened. kb 23:58 Data reviewed: vital signs, nurses notes. Data interpreted: Pulse oximetry: on room air kb is 96 %. Interpretation: normal. Counseling: I had a detailed discussion with the patient and/or guardian regarding: the historical points, exam findings, and any diagnostic results supporting the discharge/admit diagnosis, radiology results, the need for outpatient follow up, a family practitioner, to return to the emergency department if symptoms worsen or persist or if there are any questions or concerns that arise at home. 09/29 00:01 Response to treatment: the patient's symptoms have markedly improved after treatment. kb 09/28 20:56 Order name: Chest Single View XRAY; Complete Time: 22:03 kb 09/28 20:56 Order name: IV Start; Complete Time: 22:06 kb Administered Medications: 09/28 22:20 Drug: NS 0.9% 1000 ml Route: IV; Rate: 1000 ml; Site: right antecubital; kb3 22:52 Follow up: Response: No adverse reaction kb3 22:20 Drug: SOLU-Medrol (methylPrednisoLONE) 125 mg Route: IVP; Site: right antecubital; kb3 22:51 Follow up: Response: No adverse reaction kb3 22:20 Drug: DuoNeb (albuterol 2.5 mg, ipratropium 0.5 mg) (3:1) (2.5 mg - 0.5 mg) 3 ml Route: kb3 Nebulizer; 23:48 Follow up: Response: No adverse reaction kb3 22:20 Drug: Magnesium Sulfate 1 grams Route: IVPB; Infused Over: 1 hrs; Site: right kb3 antecubital; 22:51 Follow up: Response: No adverse reaction kb3 23:37 Drug: Albuterol 2.5 mg Route: Inhalation; kb3 23:48 Follow up: Response: No adverse reaction kb3 Disposition Summary: 09/28/21 23:59 Discharge Ordered Location: Home kb Condition: Stable kb Diagnosis - Wheezing kb Followup: kb - With: Emergency Department - When: As needed - Reason: Worsening of condition Followup: kb - With: Private Physician - When: 2 - 3 days - Reason: Recheck today's complaints, Continuance of care, Re-evaluation by your physician Discharge Instructions: - Discharge Summary Sheet kb - Allergies, Adult kb - Shortness of Breath, Adult, [id number] kb - Asthma, Adult, [id number] kb Forms: - Medication Reconciliation Form kb - Thank You Letter kb - Antibiotic Education kb - Prescription Opioid Use kb Prescriptions: - Prednisone 20 mg Oral Tablet - take 1 tablet by ORAL route once daily for 5 days; 5 tablet; Refills: 0, kb Product Selection Permitted - albuterol sulfate 90 mcg/actuation Inhalation HFA aerosol inhaler - inhale 2 puff by INHALATION route every 4-6 hours As needed; 1 Inhaler; kb Refills: 0, Product Selection Permitted Signatures: Dispatcher [employer] EDPaola Robbins, ASSISTANT PROFESSOR OF DRAMA-Jacqueline Valentino RN RN bm7 Yocasta Dwyer, RN RN kb3 Corrections: (The following items were deleted from the chart) 20:51 20:49 PMHx: Hypertension; 7 bm7 20:51 20:49 PMHx: Anxiety; 7 bm7 20:51 20:49 PMHx: Asthma; 7 bm7 20:51 20:49 PMHx: TIA; 7 bm7
[2021-09-29 03:54] VITALS: TEMP 98.2
[2021-09-29 03:56] VITALS: BP 115/70; O2SAT 95
== END 2021-09-29 00:12 | disposition home or self-care (01) ==
LOC: ER 20:38
DX: R06.2 Wheezing (principal); R06.02 Shortness of breath
CPT/HCPCS: 71045; 94640; 96375; 96374; 99284; J3475; J7030; J2930

== ENCOUNTER 2021-11-01 13:44 | Emergency (ER) | payer OTHER ==
--- OUTSIDE RECORDS SUMMARY | 2021-11-01 13:46 | XMS REPORT | Continuity of Care Document ---
:1970 Author Organization [facility] t Address [address] [place] [address] Care Team Providers Name Role Phone Yelitza [...] Drug Active [facility] ALLERGIE Class ity of [facility] Social History Social Habit Start Date Stop Date Quantity Comments Source History of tobacco Chews Tobacco Uni [facility] [place] use Medical Artie Sex Assigned At [facility] Branch Smoking Status Start Date Stop Date Source Former smoker 2019-06-19 00:00:00 2019-06-19 00:00:00 [facility] Medical Branch Medications Ordered Filled Start Stop Current Ordering Indication Dosage Frequency Signature Comments Components Source Medication Medication Date Date Medication? Clinician (SIG) Name Name fluticasone 2019-0 Yes [id number] 1{spray Use 1 Univers 27.5 5-14 } [place] in ity of mcg/actuati 00:00: each [place] on nasal 00 nostril Medical spray daily. Branch cetirizine Yes [id number] 10mg Take 1 U nivers 10 mg 5-14 tablet by ity of tablet 00:00: mouth [place] 00 daily. Medical Branch fluticasone 2019-0 Yes [id number] 1{spray Use 1 Univers 27.5 5-14 } [place] ity of mcg/actuati 00:00: each [place] on nasal 00 nostril Medical spray daily. Branch cetirizine 2019-0 Yes [id number] 10mg Take 1 U nivers 10 mg 5-14 tablet by ity of tablet 00:00: mouth [place] 00 daily. Medical Branch fluticasone 2019-0 Yes [id number] 1{spray Use 1 Univers 27.5 5-14 } [place] ity of mcg/actuati 00:00: each [place] on nasal 00 nostril Medical spray daily. Branch cetirizine 2019- Yes [id number] 10mg Take 1 U nivers 10 mg 5-14 tablet by ity of tablet 00:00: mouth [place] 00 daily. Medical Branch fluticasone 0 Yes [id number] 1{spray Use 1 Univers 27.5 5-14 } [place] ity of mcg/actuati 00:00: each [place] on nasal 00 nostril Medical spray daily. Branch cetirizine Yes [id number] 10mg Take 1 U nivers 10 mg 5-14 tablet by ity of tablet 00:00: mouth [place] 00 daily. Medical Branch naproxen 2020- No [...] meals. traMADOL 2019- No [facility] 50 08-20 tablet by it y of mg tablet 00:00: 00:00 mouth [place] 00 :00 every 6 Medical (six) Branch hours as needed for Pain (scale 7-10). tiZANidine 2019- No 4mg Take 1 [facility] ers (ZANAFLEX) 08-20 capsule by it y of 4 mg 00:00: 00:00 mouth 3 [place] capsule 00 :00 (three) Medical times Branch daily as needed for Muscle Spasms. Vital Signs Vital Name Observation Time Observation Value Comments Source Systolic blood 2019-06-19 16:19:00 120 mm[Hg] [facility] [place] [facility] Diastolic blood 2019-06-19 16:19:00 87 mm[facility]Hg[facility] 2019-06-19 16:19:00 84 /min [facility] Body temperature 2019-06-19 16:19:00 37.22 [facility] Respiratory rate 2019-06-19 16:19:00 18 /min [facility] Body height 2019-06-19 16:19:00 175.3 cm [facility] Body weight 2019-06-19 16:19:00 99.791 kg [facility] BMI 2019-06-19 16:19:00 32.49 kg/m2 [facility] Oxygen saturation in 2019-06-19 16:19:00 98 /min [facility] Arterial blood by [facility] Pulse oximetry Branch Procedures Procedure Date / Time Performing Clinician Source Performed POCT GRP A STREP 2019-06-19 16:28:00 King Wang [facility] (MOLECULAR) [facility] CORONAVIRUS COVID-19 2019-06-19 16:13:00 King Wang [facility] TESTING [facility] Encounters Start End Encounter Admission Attending Care Care Encounter Source Date/Time Date/Time Type Type Clinicians Facility Department ID 2019-06-20 2019-06-20 Telephone JD Moore [id number] Univers 00:00:00 00:00:00 Yelitza FELICIANO [id number] it y of [facility] [id number] [place] [phone] [address] 2019-06-19 2019-06-19 Urgent Pob1, Acute Care Clinic [facility] [id number]. [id number] Univers 11:08:58 12:10:41 King Bernardo [id number] ity of [place] [id number] [place] as Professio [phone] Az dical nal [address] 2019-06-19 2019-06-19 Outpatient R KATH[facility]EN [facility] [id number] Univers 11:00:00 11:00:00 KING snell [facility] 2019-06-19 2019-06-19 [facility] [id number] Univers 00:00:00 00:00:00 (Out) Yelitza [facility] [id number] it y of [place] [id number] [place] Professio [phone] Az dical nal [address] One Results Test Description Test Time Test Comments Results Result Comments Source CORONAVIRUS COVID-19 TESTING 2019-06-20 05:28:00 Test Item Value Reference Range Interpretation Comme nts SARS-CoV-2 (test code = 45867-3) Not Detected Not Detected BEV (test code = BEV) [employer] SARS-CoV-2 Assay is a real-time RT-PCR test intended for the qualitative detection of RNA from SARS-CoV-2 from nasopharyngeal ([facility]) specimens. It is used under Emergency Use [...] indicated. Lab Interpretation (test code = Normal 88373-3) [facility] [id number] 05:28:00 Test Item Value Reference Range Interpretation Comments SARS-CoV-2 (test code = Not Detected Not Detected 99613-7) BEV (test code = BEV) [employer] SARS-CoV-2 Assay is a real-time RT-PCR test intended for the qualitative detection of RNA from SARS-CoV-2 from nasopharyngeal ([facility]) specimens. It is used under Emergency Use [...] indicated. Lab Interpretation Normal (test code = 06608-2) [facility] GRP A STREP (MOLECULAR)2019-06-19 16:36:00 Test Item Value Reference Range Interpretation Comments POCT GP A STREP (test Negative Negative - code = 81031-6) Negative BEV (test code = BEV) accurate development and interpretation of all internal controls Lab Interpretation Normal (test code = 54054-0) [facility] GRP A STREP (MOLECULAR)2019-06-19 16:36:00 Test Item Value Reference Range Interpretation Comments POCT GP A STREP (test Negative Negative - code = 22444-0) Negative BEV (test code = BEV) accurate development and interpretation of all internal controls Lab Interpretation Normal (test code = 46652-5) [facility]
--- NOTE | 2021-11-01 15:28 | RAD REPORT ---
EXAM DESCRIPTION: Linette Single View11/01/2021 2:56 pm CLINICAL HISTORY: sob COMPARISON: September 2021 FINDINGS: The lungs appear clear of acute infiltrate. The heart is normal size IMPRESSION: No acute abnormalities displayed
[2021-11-01] MEDS ORDERED: predniSONE 20 MG TAB ONE (16:32)
--- NOTE | 2021-11-01 16:38 | ER ---
Nurse's Notes [facility] Name: Juan River Jr Age: 51 yrs Sex: Male : 1970 Arrival Date: 11/01/2021 Time: 13:48 Bed DIS3 Private MD: Haim Oneal R Diagnosis: Unspecified asthma with (acute) exacerbation Presentation: 11/01 14:33 Chief complaint: Patient states: hx of asthma, reports SOB x 3 days ago. Reports he's aa5 been using Albuterol Inhaler but ran out of Symbicort Inhaler. Coronavirus screen: shortness of breath. Ebola Screen: Patient denies travel to an Ebola-affected area in the 21 days before illness onset. Initial Sepsis Screen: Does the patient meet any 2 criteria? HR > 90 bpm. Does the patient have a suspected source of infection? No. Patient's initial sepsis screen is negative. Risk Assessment: Do you want to hurt yourself or someone else? Patient reports no desire to harm self or others. Onset of symptoms was October 2021. 14:33 Method Of Arrival: Ambulatory aa5 14:33 Acuity: MARCO ANTONIO 3 aa5 Historical: - Allergies: 14:35 No Known Allergies; aa5 - Home Meds: 14:35 Symbicort inhalation [Active]; Albuterol Inhl [Active]; aa5 14:37 valsartan oral [Active]; aa5 - PMHx: 14:35 allergies; Asthma; aa5 14:37 Hypertensive disorder; aa5 - PSHx: 14:35 R Shoulder; aa5 - Immunization history:: Client reports receiving the 2nd dose of the Covid vaccine. - Social history:: Smoking status: Patient denies any tobacco usage or history of. Screenin:35 Abuse screen: Denies threats or abuse. Denies injuries from another. Nutritional iw screening: No deficits noted. Tuberculosis screening: No symptoms or risk factors identified. Fall Risk None identified. Assessment: 16:35 Reassessment: Patient appears in no apparent distress at this time. Patient and/or iw family updated on plan of care and expected duration. Pain level reassessed. Patient is alert, oriented x 3, equal unlabored respirations, skin warm/dry/pink. Vital Signs: 14:33 BP 122 / 87; Pulse 100; Resp 22 S; Temp 99.3(TE); Pulse Ox 97% on R/A; Weight 106.59 kg aa5 (R); Height 5 ft. 9 in. (175.26 cm) (R); 14:33 Body Mass Index 34.70 (106.59 kg, 175.26 cm) aa5 ED Course: 13:48 Patient arrived in ED. mr 13:48 Haim Oneal MD is Private Physician. mr 14:33 Arm band placed on. aa5 14:35 Triage completed. aa5 14:56 Chest Single View XRAY In Process Unspecified. EDMS 15:11 Eriberto Garrison PA is PHCP. cp 15:11 Eriberto Adair MD is Attending Physician. cp 16:32 Carley Rodarte, MARII is Primary Nurse. iw Administered Medications: 16:35 Drug: predniSONE 60 mg Route: PO; iw 17:00 Follow up: Response: No adverse reaction iw Outcome: 16:38 Discharge ordered by MD. cp 17:05 Patient left the ED. iw Signatures: Dispatcher [employer] [facility] Radha Saenz mr Carley Rodarte, RN RN iw Ethel Bowman RN RN aa5 Eriberto Garrison PA PA cp Corrections: (The following items were deleted from the chart) 14:35 14:35 PSHx: Shoulder; aa5 aa5 14:36 14:33 Chief complaint: Patient states: hx of asthma, reports SOB x 3 days ago. Reports aa5 he's been using Albuterol Inhaler but ran out of Symbicort Inhaler aa5
--- NOTE | 2021-11-01 16:39 | EDPHYS ---
Physician Documentation [facility] Name: Juan River Jr Age: 51 yrs Sex: Male : 1970 Arrival Date: 11/01/2021 Time: 13:48 Bed DIS3 Private MD: Haim Oneal R ED Physician Eriberto Adair HPI: 11/01 16:15 This 51 yrs old Male presents to ER via Ambulatory with complaints of Asthma cp Exacerbation. 16:15 The patient has shortness of breath with light activity. Onset: The symptoms/episode cp began/occurred 3 day(s) ago. Duration: The symptoms are continuous, and are steadily getting worse. Associated signs and symptoms: Pertinent positives: productive cough, Pertinent negatives: chest pain, diaphoresis, dizziness, fever, vomiting, edema. Severity of symptoms: in the emergency department the symptoms are unchanged despite home interventions. Patient reports history of asthma and running out of Symbicort inhaler over the weekend. Historical: - Allergies: 14:35 No Known Allergies; aa5 - Home Meds: 14:35 Symbicort inhalation [Active]; Albuterol Inhl [Active]; aa5 14:37 valsartan oral [Active]; aa5 - PMHx: 14:35 allergies; Asthma; aa5 14:37 Hypertensive disorder; aa5 - PSHx: 14:35 R Shoulder; aa5 - Immunization history:: Client reports receiving the 2nd dose of the Covid vaccine. - Social history:: Smoking status: Patient denies any tobacco usage or history of. ROS: 16:20 Constitutional: Negative for body aches, chills, fever, poor PO intake. cp 16:20 Eyes: Negative for injury, pain, redness, and discharge. cp 16:20 ENT: Negative for drainage from ear(s), ear pain, sore throat, difficulty swallowing, difficulty handling secretions. 16:20 Cardiovascular: Negative for chest pain, edema, palpitations. 16:20 Respiratory: Positive for cough, with clear sputum, shortness of breath, wheezing. 16:20 Abdomen/GI: Negative for abdominal pain, nausea, vomiting, and diarrhea. 16:20 Skin: Negative for cellulitis, rash. 16:20 Neuro: Negative for altered mental status, dizziness, headache, numbness, syncope, weakness. 16:20 All other systems are negative. Exam: 16:25 Constitutional: The patient appears in no acute distress, alert, awake, cp non-diaphoretic, non-toxic, well developed, well nourished, obese. 16:25 Head/Face: Normocephalic, atraumatic. cp 16:25 Eyes: Periorbital structures: appear normal, Conjunctiva: normal, no exudate, no injection, Sclera: no appreciated abnormality, Lids and lashes: appear normal, bilaterally. 16:25 ENT: External ear(s): are unremarkable, Nose: is normal, Mouth: Lips: moist, Oral mucosa: pink and intact, moist, Posterior pharynx: Airway: no evidence of obstruction, patent, Tonsils: are normal in appearance, swelling, is not appreciated, erythema, is not appreciated, exudate, is not appreciated. 16:25 Neck: ROM/movement: is normal, is supple, without pain, no range of motions limitations, no nuchal rigidity. 16:25 Chest/axilla: Inspection: normal, Palpation: is normal, no crepitus, no tenderness. 16:25 Cardiovascular: Rate: tachycardic, Rhythm: regular, Edema: is not appreciated, JVD: is not appreciated. 16:25 Respiratory: the patient does not display signs of respiratory distress, Respirations: labored breathing, is not present, accessory muscle usage, is absent, intercostal retractions, are absent, Breath sounds: bronchial sounds, that are mild, are heard diffusely, decreased breath sounds, are not appreciated, stridor, is not appreciated. 16:25 Abdomen/GI: Exam negative for discomfort, distension, guarding, Inspection: abdomen appears normal, Palpation: abdomen is soft and non-tender, in all quadrants. 16:25 Back: pain, is absent, ROM is normal. 16:25 Neuro: Orientation: to person, place \T\ time. Mentation: is normal, Motor: moves all fours, strength is normal, Sensation: is normal, Gait: is steady, at a normal pace, without difficulty. 16:33 ECG was reviewed by the Attending Physician. cp Vital Signs: 14:33 BP 122 / 87; Pulse 100; Resp 22 S; Temp 99.3(TE); Pulse Ox 97% on R/A; Weight 106.59 kg aa5 (R); Height 5 ft. 9 in. (175.26 cm) (R); 14:33 Body Mass Index 34.70 (106.59 kg, 175.26 cm) aa5 MDM: 15:18 Patient medically screened. [facility] 16:38 Data reviewed: vital signs, nurses notes, EKG, radiologic studies, plain films. 16:38 Antibiotic administration: Not indicated, the patient does not have an appreciated cp infiltrate, the patient's primary pathology is reactive airway disease. Test interpretation: by ED physician or midlevel provider: ECG, plain radiologic studies. Counseling: I had a detailed discussion with the patient and/or guardian regarding: the historical points, exam findings, and any diagnostic results supporting the discharge/admit diagnosis, radiology results, the need for outpatient follow up, a family practitioner, to return to the emergency department if symptoms worsen or persist or if there are any questions or concerns that arise at home. 11/01 14:37 Order name: Chest Single View XRAY; Complete Time: 16:53 [facility] 11/01 16:53 Interpretation: Report review. 11/01 15:26 Order name: EKG; Complete Time: 15:27 11/01 15:26 Order name: EKG - Nurse/Tech; Complete Time: 16:32 EC:33 Rate is 100 beats/min. Rhythm is regular. IN interval is normal. QRS interval is cp normal. QT interval is normal. T waves are Inverted in lead aVR. Interpreted by me. Reviewed by me. Administered Medications: 16:35 Drug: predniSONE 60 mg Route: PO; iw 17:00 Follow up: Response: No adverse reaction iw Disposition Summary: 11/01/21 16:38 Discharge Ordered Location: Home cp Problem: an acute exacerbation cp Symptoms: have improved cp Condition: Stable cp Diagnosis - Unspecified asthma with (acute) exacerbation cp Followup: cp - With: Private Physician - When: 1 - 2 days - Reason: Recheck today's complaints Discharge Instructions: - Discharge Summary Sheet cp - Asthma, Adult cp Forms: - Medication Reconciliation Form cp - Thank You Letter cp - Antibiotic Education cp - Prescription Opioid Use cp Prescriptions: - budesonide 180 mcg/actuation Inhalation aerosol powdr breath activated - inhale 1 puff by INHALATION route 2 times per day; 1 Inhaler; Refills: 0, cp Product Selection Permitted - Prednisone 20 mg Oral Tablet - take 2 tablet by ORAL route once daily for 5 days; 10 tablet; Refills: 0, cp Product Selection Permitted Signatures: Dispatcher [employer] Eriberto Tovar MD MD cha Williams, Irene RN Ethel Estrada RN RN aa5 Eriberto Garrison, CLYDE TANG cp Corrections: (The following items were deleted from the chart) 14:35 14:35 PSHx: Shoulder; aa5 aa5
--- NOTE | 2021-11-02 13:06 | EKG ---
Test Date: 2021-11-01 Test Time: 16:31:16 Plant Pathology Teacher: FÉLIX MEASUREMENT RESULTS: Intervals: Rate: 100 CA: 142 QRSD: 86 QT: 334 QTc: 430 [place]: P: 1 CA: 142 QRS: 61 T: 47 INTERPRETIVE STATEMENTS: Normal sinus rhythm Normal ECG Compared to ECG 08/01/2017 07:13:31 Early repolarization no longer present Electronically Signed On 11-02-21 13:04:56 CDT by Matthew Rosa
[2021-11-03 21:19] VITALS: BP 122/87; TEMP 99.3; O2SAT 97
== END 2021-11-01 17:05 | disposition home or self-care (01) ==
LOC: ER 13:44
DX: J45.901 Unspecified asthma with (acute) exacerbation (principal); I10 Essential (primary) hypertension
CPT/HCPCS: 93005; 71045; 99283; J7512

== ENCOUNTER 2022-02-09 10:32 | Emergency (ER) | payer OTHER ==
--- OUTSIDE RECORDS SUMMARY | 2022-02-09 10:36 | XMS REPORT | Continuity of Care Document ---
:1970 Author Organization [facility] t Address [address] [place] [address] Care Team Providers Name Role Phone Yelitza [...] Drug Active Univers ALLERGIE Class ity of [facility] Social History Social Habit Start Date Stop Date Quantity Comments Source History of tobacco Chews Tobacco Uni versity of [place] use Medical [place] Sex Assigned At [facility] Branch Smoking Status Start Date Stop Date Source Former smoker 2019-06-19 00:00:00 2019-06-19 00:00:00 [facility] Medications Ordered Filled Start Stop Current Ordering Indication Dosage Frequency Signature Comments Components Source Medication Medication Date Date Medication? Clinician (SIG) Name Name fluticasone 2019-0 Yes [id number] 1{spray Use 1 Univers 27.5 5-14 } [place] in ity of mcg/actuati 00:00: each [place] on nasal 00 nostril Medical spray daily. Branch cetirizine Yes [id number] 10mg Take 1 U nivers 10 mg 5-14 tablet by ity of tablet 00:00: mouth [place] 00 daily. Medical Branch fluticasone 2019-0 Yes [id number] 1{spray Use 1 Univers 27.5 5-14 } [place] in ity of mcg/actuati 00:00: each [place] on nasal 00 nostril Medical spray daily. Branch cetirizine 2019-0 Yes [id number] 10mg Take 1 U nivers 10 mg 5-14 tablet by ity of tablet 00:00: mouth [place] 00 daily. Medical Branch fluticasone 2019-0 Yes [id number] 1{spray Use 1 Univers 27.5 5-14 } [place] in ity of mcg/actuati 00:00: each [place] on nasal 00 nostril Medical spray daily. Branch cetirizine 2019- Yes [id number] 10mg Take 1 U nivers 10 mg 5-14 tablet by ity of tablet 00:00: mouth [place] 00 daily. Medical Branch fluticasone 0 Yes [id number] 1{spray Use 1 Univers 27.5 5-14 } [place] in ity of mcg/actuati 00:00: each [place] on nasal 00 nostril Medical spray daily. Branch cetirizine Yes [id number] 10mg Take 1 U nivers 10 mg 5-14 tablet by ity of tablet 00:00: mouth [place] 00 daily. Medical Branch naproxen 2020- No [...] meals. traMADOL 2019- No 50mg Take 1 [facility] (ULTRAM) 50 08-20 tablet by it y of mg tablet 00:00: 00:00 mouth [place] 00 :00 every 6 Medical (six) Branch hours as needed for Pain (scale 7-10). tiZANidine 2019- No 4mg Take 1 [facility] ers (ZANAFLEX) 08-20 capsule by it y of 4 mg 00:00: 00:00 mouth 3 [place] capsule 00 :00 (three) Medical times Branch daily as needed for Muscle Spasms. Vital Signs Vital Name Observation Time Observation Value Comments Source Systolic blood 2019-06-19 16:19:00 120 mm[Hg] [facility] Diastolic blood 2019-06-19 16:19:00 87 mm[Hg] [facility] 2019-06-19 16:19:00 84 /min [facility] Body temperature 2019-06-19 16:19:00 37.22 Marjan [facility] Respiratory rate 2019-06-19 16:19:00 18 /min [facility] Body height 2019-06-19 16:19:00 175.3 cm [facility] Body weight 2019-06-19 16:19:00 99.791 kg [facility] BMI 2019-06-19 16:19:00 32.49 kg/m2 [facility] Oxygen saturation in 2019-06-19 16:19:00 98 /min [facility] Arterial blood by [facility] Pulse oximetry Branch Procedures Procedure Date / Time Performing Clinician Source Performed POCT GRP A STREP 2019-06-19 16:28:00 King Wang [facility] (MOLECULAR) [facility] CORONAVIRUS COVID-19 2019-06-19 16:13:00 King Wang [facility] TESTING [facility] Encounters Start End Encounter Admission Attending Care Care Encounter Source Date/Time Date/Time Type Type Clinicians Facility Department ID 2019-06-20 2019-06-20 Telephone JD Moore [id number] Univers 00:00:00 00:00:00 Yelitza FELICIANO [id number] it y of [facility] [id number] [place] [id number] [address] 2019-06-19 2019-06-19 Urgent Pob1, Acute Care Clinic [facility] [id number] Univers 11:08:58 12:10:41 King Bernardo [id number] ity of [place] [id number] [place] Professio [phone] Al dical nal [address] 2019-06-19 2019-06-19 Outpatient R KATHLEEN [facility] [id number] Univers 11:00:00 11:00:00 KING snell [facility] 2019-06-19 2019-06-19 Letter [facility] [id number] Univers 00:00:00 00:00:00 (Out) Yelitza [facility] [id number] it y of [place] [id number] [place] Professio [phone] Al dical nal [address] One Results Test Description Test Time Test Comments Results Result Comments Source CORONAVIRUS COVID-19 TESTING 2019-06-20 05:28:00 Test Item Value Reference Range Interpretation Comme nts SARS-CoV-2 (test code = 91827-9) Not Detected Not Detected BEV (test code = BEV) [employer] [facility] SARS-CoV-2 Assay is a real-time RT-PCR test intended for the qualitative detection of RNA from SARS-CoV-2 from nasopharyngeal (VENDOR REPRESENTATIVES) specimens. It is used under Emergency Use [...] indicated. Lab Interpretation (test code = Normal 40147-2) [facility] [id number] 05:28:00 Test Item Value Reference Range Interpretation Comments SARS-CoV-2 (test code = Not Detected Not Detected 15455-2) BEV (test code = BEV) [employer] SARS-CoV-2 Assay is a real-time RT-PCR test intended for the qualitative detection of RNA from SARS-CoV-2 from nasopharyngeal (VENDOR REPRESENTATIVES) specimens. It is used under Emergency Use [...] indicated. Lab Interpretation Normal (test code = 73831-3) [facility] GRP A STREP (MOLECULAR)2019-06-19 16:36:00 Test Item Value Reference Range Interpretation Comments POCT GP A STREP (test Negative Negative - code = 81794-0) Negative BEV (test code = BEV) accurate development and interpretation of all internal controls Lab Interpretation Normal (test code = 13154-8) [facility] GRP A STREP (MOLECULAR)2019-06-19 16:36:00 Test Item Value Reference Range Interpretation Comments POCT GP A STREP (test Negative Negative - code = 49962-3) Negative BEV (test code = BEV) accurate development and interpretation of all internal controls Lab Interpretation Normal (test code = 35802-9) [facility]
[2022-02-09] MEDS ORDERED: KETOROLAC 30 MG/ML INJ ONE (10:54)
--- NOTE | 2022-02-09 11:18 | RAD REPORT ---
EXAM DESCRIPTION: RAD - Chest Pa And Lat (2 Views) - 02/09/2022 11:11 am CLINICAL HISTORY: rib pain COMPARISON: Chest Single View dated 11/06/2021; Chest Single View dated 11/01/2021; Chest Single View dated 09/28/2021; Chest Single View dated 05/31/2021 FINDINGS: Lines: None. Lungs: Mild opacities in the lung bases . Pleural: No significant pleural effusions or pneumothorax. Cardiac: The heart size is within normal limits. Mediastinum: Within normal limits. Bones: No acute fractures. Other: None IMPRESSION: Mild opacities in the lung bases could reflect scarring or atelectasis .
--- NOTE | 2022-02-09 12:03 | EDPHYS ---
Physician Documentation [facility] [place] [place] Name: Juan River Jr Age: 51 yrs Sex: Male : 1970 Arrival Date: 02/09/2022 Time: 10:35 Bed DIS4 Private MD: ED Physician Feliciano Ackerman HPI: 02/09 12:40 This 51 yrs old Male presents to ER via Ambulatory with complaints of Rib pain. snw 12:40 The patient or guardian reports on blowing nose pt felt pop on left ribs at recent snw painful area. Severity of symptoms: At their worst the symptoms were moderate. The patient has been recently seen by a physician:. Historical: - Allergies: 10:43 No Known Drug Allergies; ll1 - PMHx: 10:43 Hypertensive disorder; Asthma; allergies; possible COPD; ll1 - PSHx: 10:43 R shoulder; ll1 - Immunization history:: Client reports receiving the 2nd dose of the Covid vaccine. - Social history:: Smoking status: Patient reports use of chewing tobacco. Patient denies any tobacco usage or history of. ROS: 12:04 Constitutional: Negative for fever, chills, and weight loss, Eyes: Negative for injury, snw pain, redness, and discharge, ENT: Negative for injury, pain, and discharge, Neck: Negative for injury, pain, and swelling, Cardiovascular: Negative for chest pain, palpitations, and edema, Abdomen/GI: Negative for abdominal pain, nausea, vomiting, diarrhea, and constipation, Back: Negative for injury and pain, : Negative for injury, bleeding, discharge, and swelling, MS/Extremity: Negative for injury and deformity, Skin: Negative for injury, rash, and discoloration, Neuro: Negative for headache, weakness, numbness, tingling, and seizure, Psych: Negative for depression, anxiety, suicide ideation, homicidal ideation, and hallucinations. 12:04 Respiratory: Positive for cough, with no reported sputum, pleurisy, of the left lateral anterior chest, post blowing nose. Exam: 12:04 Constitutional: This is a well developed, well nourished patient who is awake, alert, snw and in no acute distress. Head/Face: Normocephalic, atraumatic. Eyes: Pupils equal round and reactive to light, extra-ocular motions intact. Lids and lashes normal. Conjunctiva and sclera are non-icteric and not injected. Cornea within normal limits. Periorbital areas with no swelling, redness, or edema. ENT: Nares patent. No nasal discharge, no septal abnormalities noted. Tympanic membranes are normal and external auditory canals are clear. Oropharynx with no redness, swelling, or masses, exudates, or evidence of obstruction, uvula midline. Mucous membranes moist. Neck: Trachea midline, no thyromegaly or masses palpated, and no cervical lymphadenopathy. Supple, full range of motion without nuchal rigidity, or vertebral point tenderness. No Meningismus. Cardiovascular: Regular rate and rhythm with a normal S1 and S2. No gallops, murmurs, or rubs. Normal PMI, no JVD. No pulse deficits. Respiratory: Lungs have equal breath sounds bilaterally, clear to auscultation and percussion. No rales, rhonchi or wheezes noted. No increased work of breathing, no retractions or nasal flaring. Abdomen/GI: Soft, non-tender, with normal bowel sounds. No distension or tympany. No guarding or rebound. No evidence of tenderness throughout. Back: No spinal tenderness. No costovertebral tenderness. Full range of motion. Skin: Warm, dry with normal turgor. Normal color with no rashes, no lesions, and no evidence of cellulitis. MS/ Extremity: Pulses equal, no cyanosis. Neurovascular intact. Full, normal range of motion. Neuro: Awake and alert, GCS 15, oriented to person, place, time, and situation. Cranial nerves II-XII grossly intact. Motor strength 5/5 in all extremities. Sensory grossly intact. Cerebellar exam normal. Normal gait. Psych: Awake, alert, with orientation to person, place and time. Behavior, mood, and affect are within normal limits. 12:04 Chest/axilla: Inspection: normal, Palpation: crepitus, is not appreciated, tenderness, that is moderate, that totally reproduces the patient's complaints. Vital Signs: 10:44 BP 138 / 93; Pulse 113; Resp 20; Temp 97.3; Pulse Ox 96% on R/A; Weight 113.4 kg; ll1 Height 5 ft. 9 in. (175.26 cm); Pain 10/10; 10:44 Body Mass Index 36.92 (113.40 kg, 175.26 cm) ll1 MDM: 10:41 Patient medically screened. snw 10:50 Differential diagnosis: bronchitis, flu, URI, pleurisy. snw 10:50 Response to treatment: the patient's symptoms have mildly improved after treatment. snw Special discussion: Based on the history and exam findings, there is no indication for further emergent testing or inpatient evaluation. I discussed with the patient/guardian the need to see the primary care provider for further evaluation of the symptoms. 10:53 Differential diagnosis: bacterial infection, URI, bronchitis, pneumonia snw costochondritis. Data reviewed: vital signs, nurses notes. Data interpreted: Pulse oximetry: on room air is 96 %. Interpretation: normal. Counseling: I had a detailed discussion with the patient and/or guardian regarding: the historical points, exam findings, and any diagnostic results supporting the discharge/admit diagnosis, the presence of at least one elevated blood pressure reading (>120/80) during this emergency department visit, radiology results. 02/09 10:51 Order name: Chest Pa And Lat (2 Views) XRAY; Complete Time: 11:22 snw Administered Medications: 10:57 Drug: Ketorolac 60 mg Route: IM; Site: right gluteus; ll1 12:17 Follow up: Response: No adverse reaction aa5 Disposition: 16:43 Co-signature as Attending Physician, Feliciano Ackerman DO I was immediately available on-site ms3 in the Emergency Department for consultation in the care of the patient. Disposition Summary: 02/09/22 12:02 Discharge Ordered Location: Home snw Condition: Stable snw Diagnosis - Pleurisy snw Followup: snw - With: Private Physician - When: Today - Reason: Recheck today's complaints, Continuance of care, Re-evaluation by your physician Followup: snw - With: Emergency Department - When: As needed - Reason: Trouble breathing, Worsening of condition Discharge Instructions: - Discharge Summary Sheet snw - Pleurisy snw - How to Use an Incentive Spirometer snw - Form - Incentive Spirometer Record snw - How to Use a Back Brace snw Forms: - Medication Reconciliation Form snw - Thank You Letter snw - Antibiotic Education snw - Prescription Opioid Use snw Prescriptions: - Prednisone 20 mg Oral Tablet - take 1 tablet by ORAL route once daily for 5 days; 5 tablet; Refills: 0, snw Product Selection Permitted - Pepcid 20 mg Oral Tablet - take 1 tablet by ORAL route once daily; 20 tablet; Refills: 0, Product snw Selection Permitted Signatures: Dispatcher [employer] Anastasia Harris FNP-C BICYCLE INSPECTOR-[employer] Asuncion Armenta RN RN ll1 Feliciano Ackerman DO DO ms3 Ethel Bowman RN aa5
--- NOTE | 2022-02-09 12:03 | ER ---
Nurse's Notes [facility] Name: Juan River Jr Age: 51 yrs Sex: Male : 1970 Arrival Date: 02/09/2022 Time: 10:35 Bed DIS4 Private MD: Diagnosis: Pleurisy Presentation: 02/09 10:44 Chief complaint: Patient states: L sided rib pain for about 5 days. Coughed today and ll1 felt a pop L rib cage area. Pain and SOB with exertion noted now. Coronavirus screen: Vaccine status: Patient reports receiving the 2nd dose of the covid vaccine. Client denies travel out of the [place] in the last 14 days. At this time, the client does not indicate any symptoms associated with coronavirus-19. Ebola Screen: Patient denies travel to an Ebola-affected area in the 21 days before illness onset. Initial Sepsis Screen: Does the patient meet any 2 criteria? HR > 90 bpm. No. Patient's initial sepsis screen is negative. Does the patient have a suspected source of infection? Yes: Bone or joint infection. Risk Assessment: Do you want to hurt yourself or someone else? Patient reports no desire to harm self or others. Onset of symptoms was February 04, 2022. 10:44 Method Of Arrival: Ambulatory ll1 10:44 Acuity: MARCO ANTONIO 3 ll1 Historical: - Allergies: 10:43 No Known Drug Allergies; ll1 - PMHx: 10:43 Hypertensive disorder; Asthma; allergies; possible COPD; ll1 - PSHx: 10:43 R shoulder; ll1 - Immunization history:: Client reports receiving the 2nd dose of the Covid vaccine. - Social history:: Smoking status: Patient reports use of chewing tobacco. Patient denies any tobacco usage or history of. Assessment: 12:17 Reassessment: Patient is alert, oriented x 3, equal unlabored respirations, skin aa5 warm/dry/pink. Vital Signs: 10:44 BP 138 / 93; Pulse 113; Resp 20; Temp 97.3; Pulse Ox 96% on R/A; Weight 113.4 kg; ll1 Height 5 ft. 9 in. (175.26 cm); Pain 10/10; 10:44 Body Mass Index 36.92 (113.40 kg, 175.26 cm) ll1 ED Course: 10:35 Patient arrived in ED. mr 10:40 Anastasia Miguel, [facility] snw 10:40 Feliciano Ackerman DO is Attending Physician. snw 10:46 Triage completed. ll1 10:46 Arm band placed on Patient placed in an exam room, on a stretcher. ll1 11:13 Chest Pa And Lat (2 Views) XRAY In Process Unspecified. EDMS 12:17 No provider procedures requiring assistance completed. Patient did not have IV access aa5 during this emergency room visit. Administered Medications: 10:57 Drug: Ketorolac 60 mg Route: IM; Site: right gluteus; ll1 12:17 Follow up: Response: No adverse reaction aa5 Medication: 12:18 VIS not applicable for this client. aa5 Outcome: 12:02 Discharge ordered by . snw 12:17 Discharged to home ambulatory, with family. aa5 12:17 Condition: stable 12:17 Discharge instructions given to patient, Instructed on discharge instructions, follow up and referral plans. medication usage, Demonstrated understanding of instructions, follow-up care, medications, Prescriptions given X 2. 12:18 Patient left the ED. aa5 Signatures: Dispatcher [employer] EDMS Anastasia Miguel FNP-C BUNCHER OPERATOR-Csnw Radha Saenz, Ethel, RN RN aa5 Asuncion Armenta RN RN ll1
[2022-02-09 12:26] VITALS: BP 138/93; TEMP 97.3; O2SAT 96
== END 2022-02-09 12:18 | disposition home or self-care (01) ==
LOC: ER 10:32
DX: R09.1 Pleurisy (principal); I10 Essential (primary) hypertension; F17.220 Nicotine dependence, chewing tobacco, uncomplicated
CPT/HCPCS: 71046; 96372; 99283

== ENCOUNTER 2022-03-14 03:58 | Inpatient (IN) | payer OTHER ==
--- OUTSIDE RECORDS SUMMARY | 2022-03-14 04:02 | XMS REPORT | Continuity of Care Document ---
:1970 Author Organization [facility] t Address [address] [place] [address] Care Team Providers Name Role Phone Yelitza [...] Drug Active Univers ALLERGIE Class ity of [facility] Social History Social Habit Start Date Stop Date Quantity Comments Source History of tobacco Chews Tobacco Uni versity of [place] use Medical [place] Sex Assigned At [facility] Branch Smoking Status Start Date Stop Date Source Former smoker 2019-06-19 00:00:00 2019-06-19 00:00:00 [facility] Branch Medications Ordered Filled Start Stop Current Ordering Indication Dosage Frequency Signature Comments Components Source Medication Medication Date Date Medication? Clinician (SIG) Name Name fluticasone 2019-0 Yes [id number] 1{spray Use 1 Univers 27.5 5-14 } [place] in ity of mcg/actuati 00:00: each [place] on nasal 00 nostril Medical spray daily. Branch cetirizine Yes [id number] 10mg Take 1 U nivers 10 mg 5-14 tablet by ity of tablet 00:00: mouth [place] 00 daily. Medical Branch fluticasone 2019-0 Yes [id number] 1{spray Use 1 Univers 27.5 5-14 } [place] in ity of mcg/actuati 00:00: each [place] on nasal 00 nostril Medical spray daily. Branch cetirizine 2019-0 Yes [id number] 10mg Take 1 U nivers 10 mg 5-14 tablet by ity of tablet 00:00: mouth [place] 00 daily. Medical Branch fluticasone 2019-0 Yes [id number] 1{spray Use 1 Univers 27.5 5-14 } [place] in ity of mcg/actuati 00:00: each [place] on nasal 00 nostril Medical spray daily. Branch cetirizine 2019- Yes [id number] 10mg Take 1 U nivers 10 mg 5-14 tablet by ity of tablet 00:00: mouth [place] 00 daily. Medical Branch fluticasone 0 Yes [id number] 1{spray Use 1 Univers 27.5 5-14 } [place] in ity of mcg/actuati 00:00: each [place] on nasal 00 nostril Medical spray daily. Branch cetirizine Yes [id number] 10mg Take 1 U nivers 10 mg [...] No 50mg Take 1 [facility] s (ULTRAM) 50 08-20 tablet by it y of mg tablet 00:00: 00:00 mouth [place] 00 :00 every 6 Medical (six) Branch hours as needed for Pain (scale 7-10). tiZANidine 2019- No 4mg Take 1 [facility] ers (ZANAFLEX) 08-20 capsule by it y of 4 mg 00:00: 00:00 mouth 3 [place] capsule 00 :00 (three) Medical times Branch daily as needed for Muscle Spasms. Vital Signs Vital Name Observation Time Observation Value Comments Source Systolic blood 2019-06-19 16:19:00 120 mm[Hg] [facility] Diastolic blood 2019-06-19 16:19:00 87 mm[Hg] [facility] Heart rate 2019-06-19 16:19:00 84 /min [facility] Body temperature 2019-06-19 16:19:00 37.22 Marjan [facility] Respiratory rate 2019-06-19 16:19:00 18 /min [facility] Body height 2019-06-19 16:19:00 175.3 cm [facility] Body weight 2019-06-19 16:19:00 99.791 kg [facility] BMI 2019-06-19 16:19:00 32.49 kg/m2 [facility] Oxygen saturation in 2019-06-19 16:19:00 98 /min [facility] Arterial blood by [facility] Pulse oximetry Branch Procedures Procedure Date / Time Performing Clinician Source Performed POCT GRP A STREP 2019-06-19 16:28:00 King Wang [facility] (MOLECULAR) [facility] CORONAVIRUS COVID-19 2019-06-19 16:13:00 King Wang [facility] TESTING [facility] Encounters Start End Encounter Admission Attending Care Care Encounter Source Date/Time Date/Time Type Type Clinicians Facility Department ID 2019-06-20 2019-06-20 Telephone JD Moore [id number] Univers 00:00:00 00:00:00 Yelitza FELICIANO [id number] it y of [facility] [id number] [place] [phone] [address] 2019-06-19 2019-06-19 Urgent Pob1, Acute Care Clinic [facility] [id number] Univers 11:08:58 12:10:41 King Bernardo [id number] ity of [place] [id number] [place] Professio [phone] Fl dical nal [address] 2019-06-19 2019-06-19 Outpatient R [facility] [id number] Univers 11:00:00 11:00:00 KING snell [facility] 2019-06-19 2019-06-19 [facility] [id number] Univers 00:00:00 00:00:00 (Out) Yelitza [facility] [id number] it y of [place] [id number] [place] Professio [phone] Fl dical nal [address] Results Test Description Test Time Test Comments Results Result Comments Source CORONAVIRUS COVID-19 TESTING 2019-06-20 05:28:00 Test Item Value Reference Range Interpretation Comme nts SARS-CoV-2 (test code = 45909-6) Not Detected Not Detected BEV (test code = BEV) [employer] SARS-CoV-2 Assay is a real-time RT-PCR test intended for the qualitative detection of RNA from SARS-CoV-2 from nasopharyngeal (SPA DIRECTOR) specimens. It is used under Emergency Use [...] indicated. Lab Interpretation (test code = Normal 81920-0) [facility] [id number] 05:28:00 Test Item Value Reference Range Interpretation Comments SARS-CoV-2 (test code = Not Detected Not Detected 67886-3) BEV (test code = BEV) [employer] SARS-CoV-2 Assay is a real-time RT-PCR test intended for the qualitative detection of RNA from SARS-CoV-2 from nasopharyngeal (SPA DIRECTOR) specimens. It is used under Emergency Use [...] indicated. Lab Interpretation Normal (test code = 02990-2) [facility] GRP A STREP (MOLECULAR)2019-06-19 16:36:00 Test Item Value Reference Range Interpretation Comments POCT GP A STREP (test Negative Negative - code = 00729-5) Negative BEV (test code = BEV) accurate development and interpretation of all internal controls Lab Interpretation Normal (test code = 25457-1) [facility] GRP A STREP (MOLECULAR)2019-06-19 16:36:00 Test Item Value Reference Range Interpretation Comments POCT GP A STREP (test Negative Negative - code = 25997-9) Negative BEV (test code = BEV) accurate development and interpretation of all internal controls Lab Interpretation Normal (test code = 86560-0) [facility]
[2022-03-14] MEDS ORDERED: BENZONATATE 100 MG CAP PO ONE (04:40)
[2022-03-14] MEDS ORDERED: MORPHINE 4 MG/ML SYR ONE (04:40)
[2022-03-14] MEDS ORDERED: ALBUTEROL 2.5 MG/3 ML NEB SOL ONE (04:41)
[2022-03-14] MEDS ORDERED: IPRATROPIUM BROM 0.5MG/2.5ML ONE (04:41)
[2022-03-14] MEDS ORDERED: ONDANSETRON 4 MG/2 ML VIAL ONE (04:41)
[2022-03-14] MEDS ORDERED: METHYLPREDNISOLONE 125 MG INJ ONE (05:10)
[2022-03-14 05:20] LABS: Absolute Lymphocytes (CBC) 1.7 K/uL (0.7-4.9); Hematocrit 47.4 % (39.6-49.0); Lymphocytes % 19.1 % (15.3-44.8); MCV 97.4 fL (80-100); MPV 7.4 fL (7.6-11.3); RBC Red Blood Cell Count 4.86 M/uL (4.33-5.43)
[2022-03-14] MEDS ORDERED: predniSONE 20 MG TAB ONE (05:22)
[2022-03-14 05:36] LABS: Albumin 3.4 g/dL (3.4-5.0); Bilirubin Direct 0.1 mg/dL (0-0.2); Bilirubin Total 0.3 mg/dL (0.2-1.0); Magnesium 2.2 mg/dL (1.6-2.4); Potassium 4.3 mmol/L (3.5-5.1); Protein, Total 7.3 g/dL (6.4-8.2); Troponin High Sensitivity 7.1 pg/mL (<58.9)
[2022-03-14 05:57] LABS: SARS-COV-2 RT PCR NEGATIVE (NEGATIVE)
--- NOTE | 2022-03-14 06:04 | EDPHYS ---
Physician Documentation [facility] Name: Juan River Jr Age: 51 yrs Sex: Male : 1970 Arrival Date: 03/14/2022 Time: 04:01 Bed 7 Private MD: ED Physician Eriberto Adair HPI: 03/14 05:15 This 51 yrs old Male presents to ER via Ambulatory with complaints of Flank arleth Pain, Congestion, Cough. 05:15 The patient complains of pain in the left subscapular area and left mid back. The pain arleth does not radiate. Onset: The symptoms/episode began/occurred 1 day(s) ago. Associated signs and symptoms: Pertinent positives: dizziness. Historical: - Allergies: 04:24 No Known Allergies; bb - Home Meds: 04:24 valsartan oral [Active]; amlodipine oral [Active]; Trelegy Ellipta inhalation [Active]; bb Hydrocodone-Acetaminophen Oral [Active]; Xanax Oral [Active]; - PMHx: 04:24 allergies; Asthma; Hypertensive disorder; possible COPD; bb - PSHx: 04:24 R shoulder; bb - Immunization history:: Client reports receiving the 2nd dose of the Covid vaccine, Moderna. - Social history:: Smoking status: Patient reports the use of cigarette tobacco products. ROS: 05:19 Constitutional: Negative for fever, chills, and weight loss, Eyes: Negative for injury, arleth pain, redness, and discharge, ENT: Negative for injury, pain, and discharge, Neck: Negative for injury, pain, and swelling, Cardiovascular: Negative for chest pain, palpitations, and edema, Abdomen/GI: Negative for abdominal pain, nausea, vomiting, diarrhea, and constipation, : Negative for injury, bleeding, discharge, and swelling, MS/Extremity: Negative for injury and deformity, Skin: Negative for injury, rash, and discoloration, Neuro: Negative for headache, weakness, numbness, tingling, and seizure, Psych: Negative for depression, anxiety, suicide ideation, homicidal ideation, and hallucinations, Allergy/Immunology: Negative for hives, rash, and allergies, Endocrine: Negative for neck swelling, polydipsia, polyuria, polyphagia, and marked weight changes, Hematologic/Lymphatic: Negative for swollen nodes, abnormal bleeding, and unusual bruising. 05:19 Respiratory: Positive for cough, with no reported sputum, shortness of breath, at rest. wheezing, expiratory. Exam: 05:19 Constitutional: This is a well developed, well nourished patient who is awake, alert, arleth and in no acute distress. Head/Face: Normocephalic, atraumatic. Eyes: Pupils equal round and reactive to light, extra-ocular motions intact. Lids and lashes normal. Conjunctiva and sclera are non-icteric and not injected. Cornea within normal limits. Periorbital areas with no swelling, redness, or edema. ENT: Nares patent. No nasal discharge, no septal abnormalities noted. Tympanic membranes are normal and external auditory canals are clear. Oropharynx with no redness, swelling, or masses, exudates, or evidence of obstruction, uvula midline. Mucous membranes moist. Neck: Trachea midline, no thyromegaly or masses palpated, and no cervical lymphadenopathy. Supple, full range of motion without nuchal rigidity, or vertebral point tenderness. No Meningismus. Chest/axilla: Normal chest wall appearance and motion. Nontender with no deformity. No lesions are appreciated. Cardiovascular: Regular rate and rhythm with a normal S1 and S2. No gallops, murmurs, or rubs. Normal PMI, no JVD. No pulse deficits. Abdomen/GI: Soft, non-tender, with normal bowel sounds. No distension or tympany. No guarding or rebound. No evidence of tenderness throughout. Male : Normal genitalia with no discharge or lesions. Skin: Warm, dry with normal turgor. Normal color with no rashes, no lesions, and no evidence of cellulitis. 05:19 ECG was reviewed by the Attending Physician. 05:19 Respiratory: mild respiratory distress is noted, Respirations: labored breathing, that is mild, Breath sounds: decreased breath sounds, that are mild, rhonchi, that are mild, stridor, is not appreciated, + upper airway congestion. wheezing: expiratory 05:19 Musculoskeletal/extremity: DVT Exam: No signs of deep vein thrombosis. no pain, no swelling, no tenderness, negative Homans' sign noted on exam, no appreciated bluish discoloration, no erythema, no increased warmth. Vital Signs: 04:01 BP 143 / 94; Pulse 114; Resp 20 S; Pulse Ox 98% on R/A; ha1 04:19 BP 141 / 100; Pulse 114; Resp 20 S; Temp 98.8(O); Pulse Ox 96% on R/A; Weight 112.04 kg bb (R); Height 5 ft. 9 in. (175.26 cm) (R); Pain 5/10; 05:00 BP 113 / 90; Pulse 120; Resp 20 S; Pulse Ox 97% on R/A; ha1 06:00 BP 120 / 93; Pulse 110; Resp 20; Pulse Ox 97% on R/A; ha1 04:19 Body Mass Index 36.48 (112.04 kg, 175.26 cm) bb MDM: 04:51 Patient medically screened. arleth 05:21 Antibiotic administration: Levaquin given. Differential diagnosis: Anxiety Reaction arleth Bronchitis CHF exacerbation, Chronic Obstructive Pulmonary Disease Pneumothorax Psychogenic pulmonary edema, Pulmonary Embolism. Differential Diagnosis: Obstructed Airway Bronchitis Influenza Upper Respiratory Infection Sinusitis Pharyngitis Asthma Exacerbation Viral Syndrome Pneumonia. Immunization status: Influenza vaccine: within last 5 years. Data reviewed: vital signs, nurses notes, lab test result(s), CBC, electrolytes, hepatic panel, EKG, radiologic studies, CT scan, plain films. Consideration of Admission/Observation Patient was admitted/placed on observation. Escalation of care including admission/observation considered. Independent interpretation of the following test(s) in the Emergency Department X-Ray: My interpretation is chest xray no ptx. Test considered but Not performed: Ultrasound bilateral le. 03/14 04:20 Order name: Basic Metabolic Panel; Complete Time: 05:46 03/14 04:20 Order name: CBC with Diff; Complete Time: 05:46 03/14 04:20 Order name: LFT's; Complete Time: 05:46 03/14 04:20 Order name: Magnesium; Complete Time: 05:46 03/14 04:20 Order name: NT PRO-BNP; Complete Time: 05:46 03/14 04:20 Order name: Troponin HS; Complete Time: 05:46 03/14 04:20 Order name: Lactate w/ 2H reflex if indic.; Complete Time: 05:46 03/14 04:20 Order name: Blood Culture Adult (2) 03/14 04:20 Order name: COVID-19/FLU A+B; Complete Time: 06:01 la1 03/14 10:05 Order name: Troponin High Sensitivity EDMS 03/14 10:05 Order name: Troponin High Sensitivity EDMS 03/14 10:05 Order name: Troponin High Sensitivity EDMS 03/14 10:08 Order name: Magnesium EDMS 03/14 10:08 Order name: Phosphorus EDMS 03/14 04:20 Order name: XRAY Chest (1 view) la1 03/14 04:20 Order name: EKG; Complete Time: 04:21 la1 03/14 10:08 Order name: Urinalysis EDMS 03/14 10:08 Order name: Basic Metabolic Panel EDMS 03/14 10:08 Order name: Basic Metabolic Panel EDMS 03/14 10:08 Order name: CBC with Automated Diff EDMS 03/14 10:08 Order name: CBC with Automated Diff EDMS 03/14 04:20 Order name: Cardiac monitoring; Complete Time: 05:05 la03/14 04:20 Order name: EKG - Nurse/Tech; Complete Time: 05:05 la03/14 04:20 Order name: IV Saline Lock; Complete Time: 05:05 la03/14 04:20 Order name: Labs collected and sent; Complete Time: 05:05 la03/14 04:20 Order name: O2 Per Protocol; Complete Time: 05:05 la03/14 04:20 Order name: O2 Sat Monitoring; Complete Time: 05:05 la03/14 08:40 Order name: Diet Heart Healthy; Complete Time: 08:40 ko1 EC:19 Rate is 107 beats/min. Rhythm is regular. QRS [place] is Normal. [place] interval is normal. arleth QRS interval is normal. QT interval is normal. No Q waves. T waves are Normal. No ST changes noted. Clinical impression: Sinus tachycardia. Interpreted by me. Reviewed by me. Administered Medications: 05:04 Drug: Albuterol - atroVENT (ipratropium) (3:1) (2.5 mg - 0.5 mg) 3 ml Route: Nebulizer; lg3 06:24 Follow up: Response: No adverse reaction lg3 05:04 Drug: morphine 4 mg Route: IVP; Infused Over: 4 mins; Site: right antecubital; lg3 06:24 Follow up: Response: No adverse reaction lg3 05:04 Drug: Zofran (Ondansetron) 4 mg Route: IVP; Site: right antecubital; lg3 06:24 Follow up: Response: No adverse reaction lg3 05:04 Drug: Tessalon Perle (benzonatate) 100 mg Route: PO; lg3 06:24 Follow up: Response: No adverse reaction lg3 05:08 Drug: SOLU-Medrol (methylPrednisoLONE) 125 mg Route: IVP; Site: right antecubital; lg3 06:25 Follow up: Response: No adverse reaction lg3 05:25 Drug: predniSONE 60 mg Route: PO; lg3 06:24 Follow up: Response: No adverse reaction lg3 06:36 Drug: Magnesium Sulfate 2 grams Route: IVPB; Infused Over: 2 hrs; Site: right lg3 antecubital; 06:36 Drug: Xopenex (levalbuterol) 2.5 mg Route: Inhalation; lg3 Disposition Summary: 03/14/22 06:04 Hospitalization Ordered Hospitalization Status: Inpatient Admission arleth Provider: Mike Garcia [facility]leth Condition: Fair arleth Problem: new arleth Symptoms: have improved arleth Bed/Room Type: Standard arleth Room Assignment: 420(03/14/22 10:25) bd Diagnosis - COPD/ Chronic obstructive pulmonary disease with (acute) exacerbation arleth - Chest pain, unspecified arleth - Obesity, unspecified arleth Forms: - Medication Reconciliation Form arleth - SBAR form arleth Signatures: Dispatcher [employer] EDMS Lise Red Corey, MD MD cha Ballard, Brenda, RN RN Jimi De Leon FNP-C AUXILIARY ENGINEER-[facility] Jaimie Razo RN RN lg3 Corrections: (The following items were deleted from the chart) 07:04 05:12 [place] Wo Con+CT.RAD.BRZ ordered. EDMS EDMS 10:25 06:04 arleth bd
--- NOTE | 2022-03-14 06:04 | ER ---
Nurse's Notes [facility] Name: Juan River Jr Age: 51 yrs Sex: Male : 1970 Arrival Date: 03/14/2022 Time: 04:01 Bed 7 Private MD: Diagnosis: COPD/ Chronic obstructive pulmonary disease with (acute) exacerbation;Chest pain, unspecified;Obesity, unspecified Presentation: 03/14 04:19 Chief complaint: Patient states: he has been congested for a week then started coughing bb this morning he was coughing and felt a "pop" in his ribs he has had some cartilage damage in the past to his ribs and was concerned he may have damaged them again and he feels like he needs a breathing treatment. Coronavirus screen: Client presents with at least one sign or symptom that may indicate coronavirus-19. Ebola Screen: No symptoms or risks identified at this time. Initial Sepsis Screen: Does the patient meet any 2 criteria? No. Patient's initial sepsis screen is negative. Does the patient have a suspected source of infection? No. Patient's initial sepsis screen is negative. Risk Assessment: Do you want to hurt yourself or someone else? Patient reports no desire to harm self or others. Onset of symptoms was March 08, 2022. 04:19 Method Of Arrival: Ambulatory 04:19 Acuity: MARCO ANTONIO 3 bb 04:26 Note pt states he took 2 hydrocodone at home at 0230 and xanax in the parking lot on bb arrival. Historical: - Allergies: 04:24 No Known Allergies; bb - Home Meds: 04:24 valsartan oral [Active]; amlodipine oral [Active]; Trelegy Ellipta inhalation [Active]; bb Hydrocodone-Acetaminophen Oral [Active]; Xanax Oral [Active]; - PMHx: 04:24 allergies; Asthma; Hypertensive disorder; possible COPD; bb - PSHx: 04:24 R shoulder; bb - Immunization history:: Client reports receiving the 2nd dose of the Covid vaccine, Moderna. - Social history:: Smoking status: Patient reports the use of cigarette tobacco products. Screenin:02 Abuse screen: Denies threats or abuse. Denies injuries from another. Nutritional ha1 screening: No deficits noted. Tuberculosis screening: No symptoms or risk factors identified. 05:09 [facility] Fall Risk Assessment (Adult) History of falling in the last 3 months, lg3 including since admission No falls in past 3 months (0 pts). Assessment: 04:05 General: Appears comfortable, Behavior is calm, cooperative. Pain: Complains of pain in ha1 back Pain does not radiate. Pain at worst was 8 out of 10 on a pain scale. Neuro: Level of Consciousness is awake, alert, obeys commands, Oriented to person, place, time, situation. Cardiovascular: Heart tones S1 S2 present Capillary refill < 3 seconds Patient's skin is warm and dry. Respiratory: Reports cough that is non-productive, nasal congestion Airway is patent Respiratory effort is even, unlabored, Respiratory pattern is regular, symmetrical, GI: No signs and/or symptoms were reported involving the gastrointestinal system. Abdomen is non-distended, obese, Bowel sounds present X 4 quads. : No signs and/or symptoms were reported regarding the genitourinary system. EENT:. Derm: Skin is pink, warm \\T\\ dry. Musculoskeletal: Circulation, motion, and sensation intact. Range of motion: intact in all extremities. 05:00 Reassessment: Patient and/or family updated on plan of care and expected duration. Pain ha1 level reassessed. Patient is alert, oriented x 3, equal unlabored respirations, skin warm/dry/pink. 06:00 Reassessment: Patient and/or family updated on plan of care and expected duration. Pain ha1 level reassessed. Patient is alert, oriented x 3, equal unlabored respirations, skin warm/dry/pink. Patient states feeling better. Patient states symptoms have improved. Vital Signs: 04:01 BP 143 / 94; Pulse 114; Resp 20 S; Pulse Ox 98% on R/A; ha1 04:19 BP 141 / 100; Pulse 114; Resp 20 S; Temp 98.8(O); Pulse Ox 96% on R/A; Weight 112.04 kg bb (R); Height 5 ft. 9 in. (175.26 cm) (R); Pain 5/10; 05:00 BP 113 / 90; Pulse 120; Resp 20 S; Pulse Ox 97% on R/A; ha1 06:00 BP 120 / 93; Pulse 110; Resp 20; Pulse Ox 97% on R/A; ha1 04:19 Body Mass Index 36.48 (112.04 kg, 175.26 cm) ED Course: 04:01 Patient arrived in ED. ja2 04:24 Triage completed. bb 04:24 Arm band placed on Patient placed in an exam room, on a stretcher, on pulse oximetry. bb 04:36 XRAY Chest (1 view) In Process Unspecified. EDMS 04:51 Eriberto Adair MD is Attending Physician. arleth 05:04 COVID-19/FLU A+B Sent. lg3 05:05 Blood Culture Adult (2) Sent. lg3 05:05 Basic Metabolic Panel Sent. lg3 05:05 CBC with Diff Sent. lg3 05:05 LFT's Sent. lg3 05:05 Magnesium Sent. lg3 05:05 NT PRO-BNP Sent. lg3 05:05 Troponin HS Sent. lg3 05:09 Patient has correct armband on for positive identification. Placed in gown. Bed in low lg3 position. Call light in reach. Side rails up X 1. Client placed on continuous cardiac and pulse oximetry monitoring. NIBP monitoring applied. sales service supervisor on. Door closed. Noise minimized. Warm blanket given. 05:09 Inserted saline lock: 20 gauge in right antecubital area, using aseptic technique. lg3 Blood collected. 06:02 Mike Garcia is Hospitalizing Provider. [facility] 06:42 Mary Sanchez, MARII is Primary Nurse. ha1 10:48 No provider procedures requiring assistance completed. Patient admitted, IV remains in ko1 place. Administered Medications: 05:04 Drug: Albuterol - atroVENT (ipratropium) (3:1) (2.5 mg - 0.5 mg) 3 ml Route: Nebulizer; lg3 06:24 Follow up: Response: No adverse reaction lg3 05:04 Drug: morphine 4 mg Route: IVP; Infused Over: 4 mins; Site: right antecubital; lg3 06:24 Follow up: Response: No adverse reaction lg3 05:04 Drug: Zofran (Ondansetron) 4 mg Route: IVP; Site: right antecubital; lg3 06:24 Follow up: Response: No adverse reaction lg3 05:04 Drug: Tessalon Perle (benzonatate) 100 mg Route: PO; lg3 06:24 Follow up: Response: No adverse reaction lg3 05:08 Drug: SOLU-Medrol (methylPrednisoLONE) 125 mg Route: IVP; Site: right antecubital; lg3 06:25 Follow up: Response: No adverse reaction lg3 05:25 Drug: predniSONE 60 mg Route: PO; lg3 06:24 Follow up: Response: No adverse reaction lg3 06:36 Drug: Magnesium Sulfate 2 grams Route: IVPB; Infused Over: 2 hrs; Site: right lg3 antecubital; 06:36 Drug: Xopenex (levalbuterol) 2.5 mg Route: Inhalation; lg3 Medication: 10:48 VIS not applicable for this client. ko1 Outcome: 06:04 Decision to Hospitalize by Provider. arleth 10:48 Admitted to Tele accompanied by tech, via wheelchair, room 420, with chart. ko1 10:48 Condition: stable 10:48 Discharge instructions given to patient, Instructed on the need for admit, Demonstrated understanding of 10:57 Patient left the ED. ko1 Signatures: Dispatcher [employer] EDEriberto Branham MD MD cha Ballard, Brenda, RN RN Jaimie Lubin, RN RN lg3 Lizette Sarkar Heidy RN RN ha1 Nicolasa Smith RN RN ko1
[2022-03-14] MEDS ORDERED: LEVALBUTEROL 1.25 MG/3 ML NEB ONE (06:21)
[2022-03-14] MEDS ORDERED: MAGNESIUM SULFATE 1 gm IVPB 2 GM/200 ML BAG IV ONE (06:23)
[2022-03-14] MEDS ORDERED: ACETAMINOPHEN 325 MG TABLET PO PRN (09:58)
[2022-03-14] MEDS ORDERED: MELATONIN 5 MG TABLET PO PRN (09:59)
[2022-03-14] MEDS ORDERED: LABETALOL 20 MG/4ML SYRINGE IV PRN (10:01)
[2022-03-14] MEDS ORDERED: ONDANSETRON 4 MG/2 ML VIAL IV PRN (10:04)
--- NOTE | 2022-03-14 10:10 | P.HP ---
Certification for Inpatient Patient admitted to: Inpatient With expected LOS: >2 Midnights Patient will require the following post-hospital care: None Practitioner: I am a practitioner with admitting privileges, knowledge of patient current condition, hospital course, and medical plan of care. Services: Services provided to patient in accordance with Admission requirements found in Title 42 Section 412.3 of the Code of Federal Regulations Patient History Date of Service: 03/14/22 Reason for admission: left Rib cage pain, wheezing, congestion and cough. History of Present Illness: Patient is a 51-year-old male with a past medical history significant for asthma, COPD, hypertension, obesity who presents with complaint of left rib cage pain, wheezing, congestion and cough. Patient reported that symptoms started 5 days ago. Patient reported that he has been having diffuse abdominal pain as well. Patient reported that when he started coughing profusely he felt 2 pops in the left rib cage and has been having pain in the left rib cage since morning. Patient rated pain as 10/10 in severity and described pain as sharp in quality. Patient reported associated signs and symptoms shortness of breath. Patient denies any other signs and symptoms. Symptoms are aggravated or relieved by nothing. Patient decided to present to the hospital due to worsening symptoms. Allergies No Known Drug Allergies Allergy (Verified 07/31/17 11:47) Unknown Home Medications: Amlodipine Besylate [Norvasc] 5 mg PO DAILY 11/06/21 Valsartan 320 mg PO DAILY 11/06/21 predniSONE [Prednisone*] 20 mg PO BID #20 tab 11/08/21 Ipratropium/Albuterol Sulfate [Iprat-Albut 0.5-3(2.5) mg/3 ml] 3 ml IH Q6HP PRN #60 11/09/21 Nebulizer Accessories [Aeroneb Go] 1 each MC DAILY #1 box 11/09/21 Fluticasone/Umeclidin/Vilanter [Trelegy Ellipta 200-62.5-25] 1 puff IH DAILY 03/14/22 - Past Medical/Surgical History Diabetic: No -: TIA -: HTN -: Anxiety -: COPD -: rotator cuff repair -: infant eye surg- crossed eyes Psychosocial/ Personal History: Patient lives at home with his family - Family History Father -: Lung disease Notes: COPD - Social History Smoking Status: Current some day smoker Counseled patient to stop smoking for: less than 10 minutes Smoking therapy provided: Yes Patient receptive to therapy: Yes Alcohol use: Yes CD- Drugs: No Caffeine use: No Review of Systems General: Unremarkable Eyes: Unremarkable ENT: Unremarkable Respiratory: Cough, Shortness of Breath, Wheezing, Other (Chest congestion ) Cardiovascular: Unremarkable Gastrointestinal: Abdominal Pain Genitourinary: Unremarkable Musculoskeletal: Other (Left rig cage ) Integumentary: Unremarkable Neurological: Unremarkable Lymphatics: Unremarkable Physical Examination - Physical Exam General: Alert, In no apparent distress, Oriented x3, Cooperative HEENT: Atraumatic, PERRLA, Mucous membr. moist/pink, EOMI, Sclerae nonicteric Neck: Supple, 2+ carotid pulse no bruit, No LAD, Without JVD or thyroid abnorm ality Respiratory: Diminished, Expiratory wheezes, Inspiratory wheezes Cardiovascular: No edema, Regular rate/rhythm, Normal S1 S2 Capillary refill: <2 Seconds Gastrointestinal: Normal bowel sounds, No tenderness, Distended Musculoskeletal: No clubbing, No swelling, No tenderness Integumentary: No rashes, No significant lesion, No tenderness/swelling Neurological: Normal speech, Normal tone, Normal affect Lymphatics: No axilla or inguinal lymphadenopathy - Studies Laboratory Data (last 24 hrs) 03/14/22 04:45: WBC 8.70, Hgb 16.0, Hct 47.4, Plt Count 263 03/14/22 04:45: Sodium 138, Potassium 4.3, BUN 12, Creatinine 0.82, Glucose 105, Magnesium 2.2, Total Bilirubin 0.3, AST 67 H, ALT 101 H, Alkaline Phosphatase 76 Assessment and Plan - Plan --Acute on chronic COPD exacerbation. Patient placed on steroids, neb treatment with Atrovent\albuterol and O2 therapy as needed -- Left rib cage pain. CT chest pending for further evaluation. We will manage pain with current pain medication regimen. -- Abdominal pain. Patient complains of diffuse abdominal pain. CT abdomen pending for further evaluation. We will manage pain with current pain medication regimen. --Moderate persistent asthma with exacerbation. Continue current treatment regimen and home medications. --Hypertension. Stable. Continue home medications and labetalol as needed. --Anxiety disorder. Continue home medication. --Chronic cough. Continue antitussives. --History of TIA. Continue aspirin. --Insomnia. Continue melatonin. --DVT prophylaxis with Lovenox subQ. Discharge Plan: Home Plan to discharge in: Greater than 2 days - Advance Directives Does patient have a Living Will: No Does patient have a Durable POA for Healthcare: No - Code Status/Comfort Care Code Status Assessed: Yes Code Status: Full Code Physician Review: Patient Assessed, Agree with Above Assessment and Plan Critical Care: No
[2022-03-14] MEDS: HYDROCODONE/APAP 5/325 MG TAB PO PRN ×3 (10:39→22:48)
[2022-03-14] MEDS ORDERED: HYDROCODONE/APAP 5/325 MG TAB ONE (10:46)
[2022-03-14 10:49] LABS: Magnesium 2.7 mg/dL (1.6-2.4); Phosphorus 3.5 mg/dL (2.5-4.9)
[2022-03-14] MEDS: ASPIRIN 81 MG CHEWABLE TABLET PO SCH (11:00)
[2022-03-14 11:36] VITALS: BMI 36.4
[2022-03-14 12:47] LABS: Specific Gravity 1.017 (1.005-1.030); Urine Bacteria None Seen /HPF (<20); Urine Bilirubin NEGATIVE (Negative); Urine Blood Negative (Negative); Urine Clarity Clear (Clear); Urine Color Light-Yellow (Yellow); Urine Glucose 3+ (Negative); Urine Mucus Slight /HPF (None Seen); Urine Protein NEGATIVE (Negative); Urine RBC <5 /HPF (None Seen); Urine Urobilinogen Normal (Normal); Urine pH 5.5 (5.0-7.0)
[2022-03-14] MEDS ORDERED: INFLUENZA VACCINE (for 6+ mo) 0.5 ML DOSE IMVAC ONE (13:00)
[2022-03-14] MEDS: IPRATROPIUM BROM 0.5MG/2.5ML NEB SCH ×2 (14:12→20:00)
[2022-03-14] MEDS: ALBUTEROL 2.5 MG/3 ML NEB SOL NEB SCH ×2 (14:12→20:00)
[2022-03-14] MEDS ORDERED: LORazepam 2 MG/ML VIAL IV ONE (14:55)
--- NOTE | 2022-03-14 15:06 | RAD REPORT ---
EXAM DESCRIPTION: RAD - Chest Single View - 03/14/2022 4:34 am CLINICAL HISTORY: The patient is 51 years old and is Male; COPD TECHNIQUE: Single view of the chest. COMPARISON: May 31, 2021. FINDINGS: Lungs: Linear atelectasis right midlung. No pulmonary vascular congestion or consolidation. Pleural space: Unremarkable. No pneumothorax. Heart: Cardiomegaly. Mediastinum: Unremarkable. Bones/joints: No acute fracture visualized. Upper abdomen: No free air in the visualized upper abdomen. IMPRESSION: 1. Linear atelectasis right midlung. 2. Cardiomegaly. Electronically signed by: Malika Lou MD 03/14/2022 4:47 AM PLUMBING ASSEMBLER Due to temporary technical issues with the PACS/Fluency reporting system, reports are being signed by the in house radiologists without review as a courtesy to insure prompt reporting. The interpreting radiologist is fully responsible for the content of the report.
--- NOTE | 2022-03-14 16:18 | RAD REPORT ---
EXAM DESCRIPTION: CT - Thorax Wo Con CLINICAL HISTORY: Chest pain Rib cage pain, SOB COMPARISON: Chest For Pe Angio dated 11/06/2021; Abdomen Wo Contrast dated 03/14/2022 FINDINGS: Linear atelectasis is seen in both lung bases. No worrisome pulmonary nodule, mass or infi ltrate. No pleural thickening or pleural effusion. No pneumothorax. No axillary, mediastinal or hilar adenopathy. Several rib fractures are seen inferior left thoracic cage. The ninth rib fracture is mildly displace d. Posterior left tenth rib fracture shows some interval healing. All CT scans are performed using dose optimization technique as appropriate and may include automated exposure control or mA/KV adjustment according to patient size. IMPRESSION: Posteroinferior left rib fractures without pneumothorax.
--- NOTE | 2022-03-14 16:20 | RAD REPORT ---
EXAM DESCRIPTION: CT - Abdomen Wo Contrast CLINICAL HISTORY: Abdominal pain Abdominal pain COMPARISON: No comparisons TECHNIQUE All CT scans are performed using dose optimization technique as appropriate and may includ e automated exposure control or mA/KV adjustment according to patient size. FINDINGS: Posteroinferior left rib fractures are noted with mild displacement. The liver, spleen, pancreas, adrenal glands and kidneys are within normal limits. No free fluid, bowel obstruction or free air. No significant adenopathy in the abdomen. IMPRESSION: Posteroinferior left rib fractures with mild displacement. No acute intra-abdominal finding.
[2022-03-14] MEDS: METHYLPREDNISOLONE 40 MG INJ IV SCH (16:22)
[2022-03-14] MEDS: chlordiazePOXIDE HCl 5 MG CAP PO SCH (20:36)
[2022-03-14] MEDS ORDERED: HOME MED 1 EA UNK (Budesonide/Formoterol Fumarate [Symbicort 80-4.5 Mcg Inhaler] 10.2 GM H IH SCH (21:00)
[2022-03-14] MEDS: BENZONATATE 100 MG CAP PO PRN (22:47)
[2022-03-15] MEDS: METHYLPREDNISOLONE 40 MG INJ IV SCH ×2 (00:47→07:58)
[2022-03-15 01:26] VITALS: O2SAT 94
[2022-03-15] MEDS: ALBUTEROL 2.5 MG/3 ML NEB SOL NEB SCH ×2 (03:15→08:35)
[2022-03-15] MEDS: IPRATROPIUM BROM 0.5MG/2.5ML NEB SCH ×2 (03:15→08:35)
[2022-03-15 04:18] LABS: Absolute Lymphocytes (CBC) 0.6 K/uL (0.7-4.9); Hematocrit 46.7 % (39.6-49.0); Lymphocytes % 3.5 % (15.3-44.8); MCV 98.6 fL (80-100); MPV 7.6 fL (7.6-11.3); RBC Red Blood Cell Count 4.74 M/uL (4.33-5.43)
[2022-03-15 04:29] LABS: Potassium 4.4 mmol/L (3.5-5.1)
[2022-03-15 05:01] LABS: Blood Morphology Comment NOT SEEN (NOT SEEN); Platelet Estimate ADEQ
[2022-03-15] MEDS: HYDROCODONE/APAP 5/325 MG TAB PO PRN (07:51)
[2022-03-15] MEDS: ASPIRIN 81 MG CHEWABLE TABLET PO SCH (07:57)
[2022-03-15] MEDS: chlordiazePOXIDE HCl 5 MG CAP PO SCH (07:58)
[2022-03-15 08:03] VITALS: BP 134/77
[2022-03-15] MEDS: BENZONATATE 100 MG CAP PO PRN (08:08)
[2022-03-15] MEDS ORDERED: ENOXAPARIN 40 MG/0.4 ML SQ SCH (09:00)
[2022-03-15] MEDS ORDERED: HOME MED 1 EA UNK (Fluticasone/Umeclidin/Vilanter [Trelegy Ellipta 200-62.5-25] Blst.W.Dev IH SCH (09:00)
[2022-03-15] MEDS ORDERED: AMLODIPINE 5 MG TAB PO SCH (09:00)
[2022-03-15] MEDS ORDERED: VALSARTAN 160 MG TAB PO SCH (09:00)
--- NOTE | 2022-03-15 09:19 | P.DS ---
Admission Date: 03/14/22 Discharge Date: 03/15/22 Disposition: ROUTINE DISCHARGE Discharge Condition: FAIR Reason for Admission: left Rib cage pain, wheezing, congestion and cough. - Problems (1) Rib fractures Status: Acute (2) COPD exacerbation Status: Acute (3) Chest pain Onset Date: 08/01/17 Status: Acute Brief History of Present Illness: Patient is a 51-year-old male with a past medical history significant for asthma, COPD, hypertension, obesity who presents with complaint of left rib cage pain, wheezing, congestion and cough. Patient reported that symptoms started 5 days ago. Patient reported that when he started coughing profusely he felt 2 pops in the left rib cage and has been having pain in the left rib cage since then. Patient rated pain as 10/10 in severity and described pain as sharp in quality. Patient reported associated signs and symptoms shortness of breath. Chest x-ray demonstrated cardiomegaly, no acute disease. Initial troponin negative. Patient was hospitalized for COPD exacerbation. Hospital Course: Patient's troponin trended negative and ACS ruled out. Chest CT demonstrated multiple rib fractures. He was treated for COPD and asthma exacerbation with steroids and bronchodilators. He was also treated for pain with hydrocodone. His cough wheezing and shortness of breath resolved with treatment. Patient has no infiltrate, no pneumonia and did not require antibiotics. His symptoms have improved and patient deemed stable for discharge. He is discharged with short course prednisone. He has nebulizers which he uses at home. He is also on Trelegy for COPD. MICROFILM MACHINE OPERATOR reviewed noted patient was prescribed 30-day supply of hydrocodone 10/325 on 03/04/2022. Vital Signs/Physical Exam: Temp Pulse Resp BP Pulse Ox 97.3 F 97 H 19 134/77 95 03/15/22 04:00 03/15/22 08:03 03/15/22 07:51 03/15/22 08:03 03/15/22 07:51 General: Alert, In no apparent distress, Oriented x3 HEENT: Mucous membr. moist/pink Neck: JVD not distended Respiratory: Clear to auscultation bilaterally, Normal air movement Cardiovascular: No edema, Regular rate/rhythm, Normal S1 S2 Gastrointestinal: Normal bowel sounds, Soft and benign, Non-distended, No tenderness Musculoskeletal: No swelling Integumentary: No rashes, No cyanosis Neurological: Normal strength at 5/5 x4 extr Laboratory Data at Discharge: WBC 17.20 K/uL (4.3-10.9) H 03/15/22 03:32 Hgb 15.7 g/dL (13.6-17.9) 03/15/22 03:32 Hct 46.7 % (39.6-49.0) 03/15/22 03:32 Plt Count 280 K/uL (152-406) 03/15/22 03:32 Sodium 135 mmol/L (136-145) L 03/15/22 03:32 Potassium 4.4 mmol/L (3.5-5.1) 03/15/22 03:32 BUN 15 mg/dL (7-18) 03/15/22 03:32 Creatinine 0.90 mg/dL (0.70-1.30) 03/15/22 03:32 Glucose 174 mg/dL (74-106) H 03/15/22 03:32 Phosphorus 3.5 mg/dL (2.5-4.9) 03/14/22 10:27 Magnesium 2.7 mg/dL (1.6-2.4) H 03/14/22 10:27 Total Bilirubin 0.3 mg/dL (0.2-1.0) 03/14/22 04:45 AST 67 U/L (15-37) H 03/14/22 04:45 ALT 101 U/L (16-61) H 03/14/22 04:45 Alkaline Phosphatase 76 U/L (45-117) 03/14/22 04:45 Home Medications: Amlodipine Besylate [Norvasc] 5 mg PO DAILY 11/06/21 Valsartan 320 mg PO DAILY 11/06/21 Ipratropium/Albuterol Sulfate [Iprat-Albut 0.5-3(2.5) mg/3 ml] 3 ml IH Q6HP PRN #60 11/09/21 Fluticasone/Umeclidin/Vilanter [Trelegy Ellipta 200-62.5-25] 1 puff IH DAILY 03/14/22 Benzonatate [Tessalon Perle*] 100 mg PO TID PRN #30 cap 03/15/22 Ibuprofen 400 mg PO TID PRN #30 tab 03/15/22 predniSONE [Prednisone*] 40 mg PO DAILY #10 tab 03/15/22 New Medications: Ibuprofen 400 mg PO TID PRN #30 tab PRN Reason: PAIN predniSONE [Prednisone*] 40 mg PO DAILY #10 tab Benzonatate [Tessalon Perle*] 100 mg PO TID PRN #30 cap PRN Reason: Cough Diet: AHA Activity: Ad noemí Followup: Manish Carmichael DO, DO [Primary Care Provider] -
[2022-03-15 09:51] VITALS: TEMP 97.6
--- NOTE | 2022-03-16 08:04 | EKG ---
Test Date: 2022-03-14 Test Time: 04:46:58 Childcare Attendant: RHETT MEASUREMENT RESULTS: Intervals: Rate: 107 NE: 138 QRSD: 84 QT: 322 QTc: 429 [place]: P: 18 NE: 138 QRS: 71 T: 44 INTERPRETIVE STATEMENTS: Sinus tachycardia Otherwise normal ECG Compared to ECG 11/06/2021 12:02:36 No significant changes Electronically Signed On 03-16-22 07:57:31 MAINTENANCE JOB TITLES by Matthew Rosa
== END 2022-03-15 10:00 | disposition home or self-care (01) | DRG 202 ==
LOC: ER 03:58 → OBSVTOIN 09:56 → INTOOBSV 09:56 → ERHOLD 09:56 → 4TH 10:50
PROVIDERS: ADMIT Internal Medicine; ATTEND Internal Medicine
DX: J45.41 Moderate persistent asthma with (acute) exacerbation (principal); J44.1 Chronic obstructive pulmonary disease with (acute) exacerbation; S22.42XA Multiple fractures of ribs, left side, initial encounter for closed fracture; R10.9 Unspecified abdominal pain; R07.9 Chest pain, unspecified; I10 Essential (primary) hypertension; I51.7 Cardiomegaly; F41.9 Anxiety disorder, unspecified; G47.00 Insomnia, unspecified; E66.9 Obesity, unspecified; Z68.36 Body mass index [BMI] 36.0-36.9, adult; F17.210 Nicotine dependence, cigarettes, uncomplicated; Z71.6 Tobacco abuse counseling; Z79.899 Other long term (current) drug therapy; Z86.73 Personal history of transient ischemic attack (TIA), and cerebral infarction without residual deficits; Z83.6 Family history of other diseases of the respiratory system
CPT/HCPCS: 0240U; 36415; 71045; 71250; 74150; 80048; 80076; 81001; 83605; 83735; 83880; 84100; 84484; 85025; 87040; 87070; 87205; 93005; 94640; 96374; 96375; 99285; J1650; J2405; J2920; J2930; J3475; J7512; J7613; J7614; J7644

== ENCOUNTER 2022-08-04 07:12 | Emergency (ER) | payer OTHER ==
--- OUTSIDE RECORDS SUMMARY | 2022-08-04 07:15 | XMS REPORT | Continuity of Care Document ---
:1970 Author Organization [facility] t Address [address] [place] [address] Care Team Providers Name Role Phone Yelitza [...] 5-14 ity of 00:00: [place] 00 Medical [place] Allergies, Adverse Reactions, Alerts Allergy Allergy Status Severity Reaction(s) Onset Inactive Treating Comm ents Source Name Type Date Date Clinician NO KNOWN Drug Active Univers ALLERGIE Class ity of [facility] Social History Social Habit Start Date Stop Date Quantity Comments Source History of tobacco Chews Tobacco Uni versity of [place] use Medical [place] Sex Assigned At [facility] Branch Smoking Status Start Date Stop Date Source Former smoker 2019-06-19 00:00:00 2019-06-19 00:00:00 [facility] Branch Medications Ordered Filled Start Stop Current Ordering Indication Dosage Frequency Signature Comments Components Source Medication Medication Date Date Medication? Clinician (SIG) Name Name fluticasone 2019-0 Yes [id number] 1{spray Use 1 Univers 27.5 5-14 } [place] in ity of mcg/actuati 00:00: each [place] on nasal 00 nostril Medical spray daily. Branch cetirizine Yes [id number] 10mg Take 1 U nivers 10 mg 5-14 tablet by ity of tablet 00:00: mouth [place] 00 daily. Medical Branch fluticasone 2019-0 Yes [id number] 1{spray Use 1 Univers 27.5 5-14 } [place] in ity of mcg/actuati 00:00: each [place] on nasal 00 nostril Medical spray daily. Branch cetirizine 2019-0 Yes [id number] 10mg Take 1 U nivers 10 mg 5-14 tablet by ity of tablet 00:00: mouth [place] 00 daily. Medical Branch fluticasone 2019-0 Yes [id number] 1{spray Use 1 Univers 27.5 5-14 } [place] in ity of mcg/actuati 00:00: each [place] on nasal 00 nostril Medical spray daily. Branch cetirizine 2019- Yes [id number] 10mg Take 1 U nivers 10 mg 5-14 tablet by ity of tablet 00:00: mouth [place] 00 daily. Medical Branch fluticasone 0 Yes [id number] 1{spray Use 1 Univers 27.5 5-14 } [place] in ity of mcg/actuati 00:00: each [place] on nasal 00 nostril Medical spray daily. Branch cetirizine Yes [id number] 10mg Take 1 U nivers 10 mg 5-14 tablet by ity of tablet 00:00: mouth [place] 00 daily. Medical Branch naproxen 2020- No [...] meals. traMADOL 2019- No [facility] Take 1 [facility] ([facility] 50 08-20 tablet by it y of mg tablet 00:00: 00:00 mouth [place] 00 :00 every 6 Medical (six) Branch hours as needed for Pain (scale 7-10). tiZANidine 2019- No 4mg Take 1 [facility] ers (ZANAFLEX) 08-20 capsule by it y of 4 mg 00:00: 00:00 mouth 3 [place] capsule 00 :00 (three) Medical times Branch daily as needed for Muscle Spasms. Vital Signs Vital Name Observation Time Observation Value Comments Source Systolic blood 2019-06-19 16:19:00 120 mm[facility]Hg[facility] Diastolic blood 2019-06-19 16:19:00 87 mm[facility]Hg[facility] rate 2019-06-19 16:19:00 84 /min [facility] Body temperature 2019-06-19 16:19:00 37.22 Marjan [facility] Respiratory rate 2019-06-19 16:19:00 18 /min [facility] Body height 2019-06-19 16:19:00 175.3 cm [facility] Body weight 2019-06-19 16:19:00 99.791 kg [facility] BMI 2019-06-19 16:19:00 32.49 kg/m2 [facility] Oxygen saturation in 2019-06-19 16:19:00 98 /min [facility] Arterial blood by [facility] Pulse oximetry Branch Procedures Procedure Date / Time Performing Clinician Source Performed POCT GRP A STREP 2019-06-19 16:28:00 King Wang [facility] (MOLECULAR) [facility] CORONAVIRUS COVID-19 2019-06-19 16:13:00 King Wang [facility] TESTING [facility] Encounters Start End Encounter Admission Attending Care Care Encounter Source Date/Time Date/Time Type Type Clinicians Facility Department ID 2019-06-20 2019-06-20 Telephone JD Moore [id number] Univers 00:00:00 00:00:00 Yelitza FELICIANO [id number] it y of [facility] [id number] [place] as [phone] [address] 2019-06-19 2019-06-19 Urgent Pob1, Acute Care Clinic [facility] [id number]. [id number] Univers 11:08:58 12:10:41 King Bernardo [id number] ity of [place] [id number] [place] as Professio [id number] Ok dical nal [address] [place] [address] 2019-06-19 2019-06-19 Outpatient R KATHLEEN [facility] [id number] Univers 11:00:00 11:00:00 KING snell [facility] 2019-06-19 2019-06-19 [facility] [id number] Univers 00:00:00 00:00:00 (Out) Yelitza [facility] [id number] it y of [place] [id number] [place] as Professio [phone] Ok dical nal [address] [place] [address] Results Test Description Test Time Test Comments Results Result Comments Source CORONAVIRUS COVID-19 TESTING 2019-06-20 05:28:00 Test Item Value Reference Range Interpretation Comme nts SARS-CoV-2 (test code = 15970-7) Not Detected Not Detected BEV (test code = BEV) [employer] [facility] SARS-CoV-2 Assay is a real-time RT-PCR test intended for the qualitative detection of RNA from SARS-CoV-2 from nasopharyngeal (WILDLIFE CONSERVATIONIST) specimens. It is used under Emergency Use [...] indicated. Lab Interpretation (test code = Normal 43457-6) [facility] [id number] 05:28:00 Test Item Value Reference Range Interpretation Comments SARS-CoV-2 (test code = Not Detected Not Detected 17973-9) BEV (test code = BEV) [employer] Fusion SARS-CoV-2 Assay is a real-time RT-PCR test intended for the qualitative detection of RNA from SARS-CoV-2 from nasopharyngeal (WILDLIFE CONSERVATIONIST) specimens. It is used under Emergency Use [...] indicated. Lab Interpretation Normal (test code = 34476-0) [facility] GRP A STREP (MOLECULAR)2019-06-19 16:36:00 Test Item Value Reference Range Interpretation Comments POCT GP A STREP (test Negative Negative - code = 23424-6) Negative BEV (test code = BEV) accurate development and interpretation of all internal controls Lab Interpretation Normal (test code = 46187-8) [facility] GRP A STREP (MOLECULAR)2019-06-19 16:36:00 Test Item Value Reference Range Interpretation Comments POCT GP A STREP (test Negative Negative - code = 61349-6) Negative BEV (test code = BEV) accurate development and interpretation of all internal controls Lab Interpretation Normal (test code = 40641-8) [facility]
[2022-08-04] MEDS ORDERED: ALBUTEROL 2.5 MG/3 ML NEB SOL ONE (07:45)
[2022-08-04] MEDS ORDERED: METHYLPREDNISOLONE 125 MG INJ ONE (07:45)
[2022-08-04] MEDS ORDERED: IPRATROPIUM BROM 0.5MG/2.5ML ONE (07:46)
--- NOTE | 2022-08-04 08:30 | RAD REPORT ---
EXAM DESCRIPTION: RAD - Chest Pa And Lat (2 Views) - 08/04/2022 7:54 am CLINICAL HISTORY: COUGH COMPARISON: Chest Single View dated 03/14/2022; Chest Pa And Lat (2 Views) dated 02/09/2022; Chest Singl e View dated 11/06/2021; Chest Single View dated 11/01/2021 TECHNIQUE: PA and lateral views of the chest were obtained. FINDINGS: The lungs are clear. Left basilar atelectasis is stable. Heart size is normal and central vasculature is within normal limits. No pleural effusion or pneumothorax seen. No acute bony finding noted. IMPRESSION: No acute cardiopulmonary process.
[2022-08-04 09:03] LABS: Absolute Lymphocytes (CBC) 1.5 K/uL (0.7-4.9); MPV 7.1 fL (7.6-11.3); RBC Red Blood Cell Count 5.25 M/uL (4.33-5.43)
[2022-08-04 09:24] LABS: Potassium 3.7 mEq/L (3.5-5.1); Troponin High Sensitivity 5.5 pg/mL (<58.9)
[2022-08-04] MEDS ORDERED: NA CHLORIDE 0.9% 500 ML ONE (09:24)
[2022-08-04] MEDS ORDERED: ACETAMINOPHEN 500 MG TAB ONE (09:32)
--- NOTE | 2022-08-04 10:18 | EDPHYS ---
Physician Documentation [facility] Name: Juan River Jr Age: 51 yrs Sex: Male : 1970 Arrival Date: 08/04/2022 Time: 07:12 Bed 16 Private MD: ED Physician Feliciano Ackerman HPI: 08/04 07:30 This 51 yrs old Male presents to ER via Ambulatory with complaints of Cough, Chest ms3 Congestion. 07:30 51-year-old male with past medical history of asthma, hypertension, COPD, anxiety ms3 presents for head cold that is been ongoing for 3 days and chest congestion with cough. Patient denies pain at this time. Patient endorses headache. Patient denies alleviating or inciting factors.. Historical: - Allergies: 07:25 No Known Allergies; ss - Home Meds: 07:25 valsartan 320 mg oral tablet 1 tab daily [Active]; amlodipine oral [Active]; Xanax 0.5 ss mg Oral tablet as needed [Active]; Trelegy Ellipta inhalation [Active]; - PMHx: 07:25 Asthma; Hypertensive disorder; COPD; Anxiety; ss - PSHx: 07:25 R shoulder; ss - Immunization history:: Adult Immunizations up to date. - Social history:: Smoking status: Patient/guardian denies using tobacco, the patient reports quitting approximately 12 years ago. ROS: 07:30 Constitutional: Negative for fever, and chills. Neck: Negative for injury, pain, and ms3 swelling, Cardiovascular: Negative for chest pain, and palpitations. 07:30 Abdomen/GI: Negative for abdominal pain, nausea, vomiting, diarrhea, and constipation, MS/Extremity: Negative for injury and deformity, Skin: Negative for injury, rash, and discoloration. 07:30 Respiratory: Positive for cough, shortness of breath, wheezing. 07:30 All other systems are negative. Exam: 07:30 Constitutional: This is a well developed, well nourished patient who is awake, alert, ms3 and in no acute distress. Head/Face: Normocephalic, atraumatic. Neck: Trachea midline, no cervical lymphadenopathy. Supple, full range of motion without nuchal rigidity, or vertebral point tenderness. No Meningismus. Chest/axilla: Normal chest wall appearance and motion. Nontender with no deformity. 07:30 Abdomen/GI: Soft, non-tender, with normal bowel sounds. No distension or tympany. No guarding or rebound. No evidence of tenderness throughout. Skin: Warm, dry with normal turgor. Normal color with no rashes, no lesions, and no evidence of cellulitis. MS/ Extremity: Pulses equal, no cyanosis. Neurovascular intact. Full, normal range of motion. 07:30 Cardiovascular: Rate: tachycardic, Rhythm: regular, Pulses: no pulse deficits are appreciated, Heart sounds: normal, normal S1and S2. 07:30 Respiratory: the patient does not display signs of respiratory distress, Respirations: normal, Breath sounds: wheezin:33 ECG was reviewed by the Attending Physician. ms3 Vital Signs: 07:23 Pulse 123; Resp 21; Temp 98.2(O); Pulse Ox 94% on R/A; Weight 111.13 kg; Height 5 ft. 9 ss in. ; Pain 7/10; 08:48 BP 142 / 77; Pulse 121; Resp 20; Pulse Ox 97% on R/A; os 09:20 BP 150 / 82; Pulse 119; Resp 16; Pulse Ox 98% on R/A; os 07:23 Body Mass Index 36.18 (111.13 kg, 175.26 cm) ss 07:23 Pain Scale: Adult ss MDM: 07:24 Patient medically screened. ms3 07:30 Differential Diagnosis: Bronchitis Influenza Upper Respiratory Infection Other COPD ms3 exacerbation. 13:19 Data reviewed: vital signs, nurses notes, lab test result(s), EKG, radiologic studies, ms3 and as a result, I will discharge patient. I considered the following discharge prescriptions or medication management in the emergency department Medications were administered in the Emergency Department. See MAR. Independent interpretation of the following test(s) in the Emergency Department EKG: See my EKG interpretation above. Care significantly affected by the following chronic conditions: Hypertension, Chronic Obstructive Pulmonary Disease. Counseling: I had a detailed discussion with the patient and/or guardian regarding: the historical points, exam findings, and any diagnostic results supporting the discharge/admit diagnosis, lab results, radiology results, the need for outpatient follow up, to return to the emergency department if symptoms worsen or persist or if there are any questions or concerns that arise at home. Response to treatment: the patient's symptoms have markedly improved after treatment, and as a result, I will discharge patient. Special discussion: I discussed with the patient/guardian in detail that at this point there is no indication for admission to the hospital. It is understood, however, that if the symptoms persist or worsen the patient needs to return immediately for re-evaluation. 08/04 08:45 Order name: Basic Metabolic Panel; Complete Time: 09:28 ms3 08/04 08:45 Order name: CBC with Diff; Complete Time: 09:22 ms3 08/04 08:45 Order name: Troponin HS; Complete Time: 09:28 ms3 08/04 07:25 Order name: Chest Pa And Lat (2 Views) XRAY; Complete Time: 08:31 ms3 08/04 08:45 Order name: EKG; Complete Time: 08:46 ms3 08/04 08:45 Order name: Cardiac monitoring; Complete Time: 08:58 ms3 08/04 08:45 Order name: EKG - Nurse/Tech; Complete Time: 08:59 ms3 08/04 08:45 Order name: IV Saline Lock; Complete Time: 08:59 ms3 08/04 08:45 Order name: Labs collected and sent; Complete Time: 08:59 ms3 08/04 08:45 Order name: O2 Per Protocol; Complete Time: 08:59 ms3 08/04 08:45 Order name: O2 Sat Monitoring; Complete Time: 08:59 ms3 EC:33 Rate is 108 beats/min. Rhythm is regular. QRS [place] is Normal. NE interval is normal. ms3 QRS interval is normal. QT interval is normal. Clinical impression: Sinus tachycardia. Interpreted by me. Reviewed by me. Administered Medications: 07:49 Drug: Ipratropium Inhalation Aerosol 0.5 mg Route: Inhalation; os 10:54 Follow up: Response: No adverse reaction os 07:49 Drug: MethylPREDNISolone Sodium Succinate IM 125 mg Route: IM; Site: left vastus os lateralis; 08:05 Drug: Albuterol Inhalation 2.5 mg Route: Inhalation; os 10:54 Follow up: Response: No adverse reaction os 09:18 Drug: NS 0.9% IV 500 ml Route: IV; Rate: 1000 ml; Site: right antecubital; os 09:26 Drug: Acetaminophen PO 1000 mg Route: PO; 3 Disposition Summary: 08/04/22 10:17 Discharge Ordered Location: Home ms3 Condition: Stable ms3 Diagnosis - COPD/ Chronic obstructive pulmonary disease with (acute) exacerbation ms3 - Essential (primary) hypertension ms3 Followup: ms3 - With: Neil Méndez MD - When: 2 - 3 days - Reason: Recheck today's complaints Discharge Instructions: - Discharge Summary Sheet ms3 - Chronic Obstructive Pulmonary Disease ms3 - Hypertension, Adult ms3 Forms: - Medication Reconciliation Form ms3 - Thank You Letter ms3 - Antibiotic Education ms3 - Prescription Opioid Use ms3 - [email or web address] ms3 Prescriptions: - azithromycin 250 mg Oral tablet - take 1 dose pack by ORAL route as directed on dose pack For 250 mg dose pack: ms3 take 500 mg today (day 1), then 250 mg for 4 days (days 2-5); 6 tablet; Refills: 0, Product Selection Permitted - Prednisone 20 mg Oral Tablet - take 2 tablets by ORAL route once daily for 5 days; 10 tablet; Refills: 0, ms3 Product Selection Permitted Signatures: Dispatcher [employer] EDKeren Martinez RN RN ss Feliciano Ackerman DO DO ms3 Brooklyn Steele RN RN 3 Ramy Gerardo RN RN os Corrections: (The following items were deleted from the chart) 07:27 07:26 PMHx: allergies; os os 07:27 07:26 PMHx: Asthma; os os 07:27 07:26 PMHx: Hypertensive disorder; os os 07:27 07:26 PMHx: possible COPD; os os 07:27 07:26 PSHx: R shoulder; os os 07:27 07:25 PMHx: allergies; ss ss 07:27 07:25 PMHx: possible COPD; ss ss
--- NOTE | 2022-08-04 10:18 | ER ---
Nurse's Notes [facility] Name: Juan River Jr Age: 51 yrs Sex: Male : 1970 Arrival Date: 08/04/2022 Time: 07:12 Bed 16 Private MD: Diagnosis: COPD/ Chronic obstructive pulmonary disease with (acute) exacerbation;Essential (primary) hypertension Presentation: 08/04 07:23 Chief complaint: Patient states: cough and chest congestion x 3 days. Denies fever. ss Coronavirus screen: Client denies travel out of the [place] in the last 14 days. Ebola Screen: Patient denies exposure to infectious person. Patient denies travel to an Ebola-affected area in the 21 days before illness onset. Initial Sepsis Screen: Does the patient meet any 2 criteria? No. Patient's initial sepsis screen is negative. Does the patient have a suspected source of infection? No. Patient's initial sepsis screen is negative. Risk Assessment: Do you want to hurt yourself or someone else? Patient reports no desire to harm self or others. Onset of symptoms was August 01, 2022. 07:23 Method Of Arrival: Ambulatory ss 07:23 Acuity: MARCO ANTONIO 2 Triage Assessment: 07:27 General: Appears uncomfortable, obese, well groomed, Behavior is calm, cooperative, os appropriate for age. Pain: Denies pain. Historical: - Allergies: 07:25 No Known Allergies; ss - Home Meds: 07:25 valsartan 320 mg oral tablet 1 tab daily [Active]; amlodipine oral [Active]; Xanax 0.5 ss mg Oral tablet as needed [Active]; Trelegy Ellipta inhalation [Active]; - PMHx: 07:25 Asthma; Hypertensive disorder; COPD; Anxiety; ss - PSHx: 07:25 R shoulder; ss - Immunization history:: Adult Immunizations up to date. - Social history:: Smoking status: Patient/guardian denies using tobacco, the patient reports quitting approximately 12 years ago. Screenin:18 [facility] ED Fall Risk Assessment (Adult) History of falling in the last 3 months, os including since admission No falls in past 3 months (0 pts) Confusion or Disorientation No (0 pts) Intoxicated or Sedated No (0 pts) Impaired Gait No (0 pts) Mobility Assist Device Used No (0 pt) Altered Elimination No (0 pt) Score/Fall Risk Level 0 - 2 = Low Risk. Abuse screen: Denies threats or abuse. Nutritional screening: No deficits noted. Tuberculosis screening: No symptoms or risk factors identified. Assessment: 07:28 Reassessment: No changes from previously documented assessment. General: Appears. os Neuro: No deficits noted. Cardiovascular: Capillary refill < 3 seconds in bilateral Rhythm is sinus tachycardia Chest pain is denied. Respiratory: Reports shortness of breath cough that is non-productive, dry, labored breathing since 2 days Respiratory effort is labored, Respiratory pattern is symmetrical, Breath sounds with wheezes bilaterally. GI: No deficits noted. 09:19 Reassessment: Patient states feeling better. Patient states went down to a 4/10. os Vital Signs: 07:23 Pulse 123; Resp 21; Temp 98.2(O); Pulse Ox 94% on R/A; Weight 111.13 kg; Height 5 ft. 9 ss in. ; Pain 7/10; 08:48 BP 142 / 77; Pulse 121; Resp 20; Pulse Ox 97% on R/A; os 09:20 BP 150 / 82; Pulse 119; Resp 16; Pulse Ox 98% on R/A; os 07:23 Body Mass Index 36.18 (111.13 kg, 175.26 cm) ss 07:23 Pain Scale: Adult ss ED Course: 07:14 Patient arrived in ED. mr 07:17 Feliciano Ackerman DO is Attending Physician. ms3 07:25 Triage completed. ss 07:25 Ramy Gerardo, RN is Primary Nurse. os 07:25 Arm band placed on right wrist. ss 07:56 Chest Pa And Lat (2 Views) XRAY In Process Unspecified. EDMS 08:59 Basic Metabolic Panel Sent. bc6 08:59 CBC with Diff Sent. bc6 08:59 Troponin HS Sent. bc6 08:59 Inserted saline lock: 22 gauge in left antecubital area, using aseptic technique. bc6 09:00 EKG done, by ED staff. aw1 10:17 Neil Méndez MD is Referral Physician. ms3 10:55 No provider procedures requiring assistance completed. IV discontinued. os Administered Medications: 07:49 Drug: Ipratropium Inhalation Aerosol 0.5 mg Route: Inhalation; os 10:54 Follow up: Response: No adverse reaction os 07:49 Drug: MethylPREDNISolone Sodium Succinate IM 125 mg Route: IM; Site: left vastus os lateralis; 08:05 Drug: Albuterol Inhalation 2.5 mg Route: Inhalation; os 10:54 Follow up: Response: No adverse reaction os 09:18 Drug: NS 0.9% IV 500 ml Route: IV; Rate: 1000 ml; Site: right antecubital; os 09:26 Drug: Acetaminophen PO 1000 mg Route: PO; 3 Outcome: 10:17 Discharge ordered by . ms3 10:55 Discharged to home ambulatory. os 10:55 Condition: improved 10:55 Discharge instructions given to patient, Instructed on discharge instructions, follow up and referral plans. no drinking with medication, medication usage, Demonstrated understanding of instructions, follow-up care, medications, Prescriptions given X 2. 10:59 Patient left the ED. os Signatures: Dispatcher [employer] EDWY DanyRadha Shelby, RN RN ss Feliciano Ackerman, DO ms3 Brooklyn Steele RN RN 3 Rosey Munoz 6 Ramy Gerardo RN RN os Yanelis Stack aw1 Corrections: (The following items were deleted from the chart) 07:27 07:26 PMHx: allergies; os os 07:27 07:26 PMHx: Asthma; os os 07:27 07:26 PMHx: Hypertensive disorder; os os 07:27 07:26 PMHx: possible COPD; os os 07:27 07:26 PSHx: R shoulder; os os 07:27 07:25 PMHx: allergies; ss ss 07:27 07:25 PMHx: possible COPD; ss
[2022-08-04 11:04] VITALS: TEMP 98.2
[2022-08-04 11:07] VITALS: BP 150/82; O2SAT 98
--- NOTE | 2022-08-06 11:20 | EKG ---
Test Date: 2022-08-04 Test Time: 08:57:12 Ed Case Manager: ADRIENNE MEASUREMENT RESULTS: Intervals: Rate: 108 FL: 138 QRSD: 88 QT: 340 QTc: 455 [place]: P: 9 FL: 138 QRS: 87 T: 6 INTERPRETIVE STATEMENTS: Sinus tachycardia Otherwise normal ECG Compared to ECG 03/14/2022 04:46:58 No significant changes Electronically Signed On 08-06-22 11:17:49 CDT by Matthew Rosa
== END 2022-08-04 10:59 | disposition home or self-care (01) ==
LOC: ER 07:12
DX: J44.1 Chronic obstructive pulmonary disease with (acute) exacerbation (principal); I10 Essential (primary) hypertension; F41.9 Anxiety disorder, unspecified
CPT/HCPCS: 93005; 85025; 80048; 36415; 84484; 71046; 96372; 99285; J7613; J7644; J2930; J7040

== ENCOUNTER 2024-06-19 15:00 | Emergency (ER) | payer OTHER ==
[2024-06-19 17:02] LABS: Absolute Basophils 0.1 K/uL (0-0.5); Absolute Eosinophils 0.1 K/uL (0-0.5); Absolute Lymphocytes (CBC) 1.9 K/uL (0.7-4.9); Absolute Neutrophil 5.8 K/uL (1.8-8.0); Basophils % 0.7 % (0-1.3); Eosinophils % 1.4 % (0-4.4); Hematocrit 51.6 % (39.6-49.0); Hemoglobin 17.8 g/dL (13.6-17.9); Lymphocytes % 20.8 % (15.3-44.8); MCH 34.3 pg (27.0-35.0); MCHC 34.4 g/dL (32.0-36.0); MCV 99.6 fL (80-100); Monocytes % 11.7 % (3.3-12.3); Neutrophils % 65.4 % (41.7-73.7); Nucleated Red Blood Cells % 0.1 % (0-0); Platelets 269 thou/uL (152-406); RBC Red Blood Cell Count 5.18 M/uL (4.33-5.43); Red Cell Distribution Width 13.5 % (12.1-15.2)
[2024-06-19] MEDS ORDERED: ONDANSETRON 4 MG/2 ML VIAL ONE (17:08)
[2024-06-19] MEDS ORDERED: NA CHLORIDE 0.9% 1,000 ML ONE ×2 (17:08→19:29)
[2024-06-19 17:20] LABS: Albumin 3.3 g/dL (3.4-5.0); Albumin/Globulin Ratio 0.8 (1.1-1.8); Anion Gap 7.1 mEq/L (5.0-15.0); Bilirubin Total 0.3 mg/dL (0.2-1.0); Globulin 4.2 g/dL (2.3-3.5); Potassium 4.1 mEq/L (3.5-5.1); Protein, Total 7.5 g/dL (6.4-8.2)
[2024-06-19 19:20] LABS: C.diff Antigen/Toxin Ag neg : Tox neg (NEG : NEG); CDIFF INTERNAL NEG CONTROL White Background (WHITE BKGD); STOOL CONSISTENCY Liquid/Semi-Solid
--- NOTE | 2024-06-19 20:16 | ER ---
Nurse's Notes [facility] Name: Juan River Jr Age: 53 yrs Sex: Male : 1970 Arrival Date: 06/19/2024 Time: 15:00 Bed 7 Private MD: Diagnosis: Diarrhea, unspecified Presentation: 06/19 15:32 Chief complaint: Patient states: Diarrhea onset 5 days ago. Pt states that he was cm10 having abdominal pain on Sunday and Sunday but has resolved. No nausea or vomiting. Coronavirus screen: Client denies travel out of the [place] in the last 14 days. Ebola Screen: Patient denies travel to an Ebola-affected area in the 21 days before illness onset. Initial Sepsis Screen: Does the patient meet any 2 criteria? HR > 90 bpm. No. Patient's initial sepsis screen is negative. Does the patient have a suspected source of infection? No. Patient's initial sepsis screen is negative. Risk Assessment: Do you want to hurt yourself or someone else? Patient reports no desire to harm self or others. Onset of symptoms was June 19, 2024. 15:32 Method Of Arrival: Ambulatory cm10 15:32 Acuity: MARCO ANTONIO 3 cm10 Triage Assessment: 15:34 General: Appears in no apparent distress. comfortable, Behavior is calm, cooperative. cm10 Pain: Denies pain. Neuro: No deficits noted. Level of Consciousness is awake, alert, obeys commands, Oriented to person, place, time, situation, Appropriate for age. Respiratory: No deficits noted. Airway is patent Respiratory effort is even, unlabored, Respiratory pattern is regular, symmetrical. GI: Reports diarrhea. Historical: - Allergies: 15:33 No Known Allergies; cm10 - Home Meds: 15:33 valsartan 320 mg Oral tablet 1 tab daily [Active]; amlodipine 10 mg oral tablet cm10 [Active]; Trelegy Ellipta inhalation [Active]; Xanax 0.5 mg Oral tablet as needed [Active]; - PMHx: 15:33 Anxiety; Asthma; COPD; Hypertensive disorder; cm10 - PSHx: 15:33 R shoulder; cm10 - Immunization history:: Adult Immunizations up to date. - Infectious Disease History:: Denies. - Social history:: Smoking status: Patient/guardian denies using tobacco. Screenin:30 [facility] ED Fall Risk Assessment (Adult) History of falling in the last 3 months, aa5 including since admission No falls in past 3 months (0 pts) Confusion or Disorientation No (0 pts) Intoxicated or Sedated No (0 pts) Impaired Gait No (0 pts) Mobility Assist Device Used No (0 pt) Altered Elimination No (0 pt) Score/Fall Risk Level 0 - 2 = Low Risk Oriented to surroundings, Maintained a safe environment, Educated pt \T\ family on fall prevention, incl call for assistance when getting out of bed, Assessed \T\ reinforced patient's understanding of fall precautions. Abuse screen: Denies threats or abuse. Nutritional screening: No deficits noted. Tuberculosis screening: No symptoms or risk factors identified. Assessment: 17:30 General: Appears comfortable, Behavior is calm, cooperative. Pain: Denies pain. Neuro: aa5 Level of Consciousness is awake, alert, obeys commands, Oriented to person, place, time, situation. Cardiovascular: Patient's skin is warm and dry. Respiratory: Airway is patent Respiratory effort is even, unlabored, Respiratory pattern is regular, symmetrical. GI: Abdomen is round obese, Bowel sounds present X 4 quads. Abd is soft and non tender X 4 quads. Reports diarrhea, Reports intermittent nausea. Patient currently denies vomiting. : No signs and/or symptoms were reported regarding the genitourinary system. EENT: No signs and/or symptoms were reported regarding the EENT system. Derm: Skin is pink, warm \T\ dry. Musculoskeletal: Range of motion: intact in all extremities. 18:07 Reassessment: Stool specimen collected and sent to lab. . aa5 18:13 Reassessment: Patient is alert, oriented x 3, equal unlabored respirations, skin aa5 warm/dry/pink. 19:15 Reassessment: Patient appears in no apparent distress at this time. General: Appears in km10 no apparent distress. Behavior is calm, cooperative. Neuro: Level of Consciousness is awake, alert, obeys commands, Oriented to person, place, time, situation, Appropriate for age Gait is steady. 20:33 Reassessment: awaiting d/c pending IVF. km10 Vital Signs: 15:32 BP 116 / 79; Pulse 116; Resp 18; Temp 98.4(O); Pulse Ox 92% on R/A; Weight 111.13 kg; cm10 Height 5 ft. 9 in. ; Pain 0/10; 17:30 BP 117 / 79; Pulse 102; Resp 18 S; Pulse Ox 92% on R/A; aa5 19:14 BP 106 / 76; Pulse 102; Resp 20; Pulse Ox 91% on R/A; km10 20:56 BP 121 / 83; Pulse 91; Resp 20; Temp 98.5(O); Pulse Ox 92% on R/A; km10 15:32 Body Mass Index 36.18 (111.13 kg, 175.26 cm) cm10 15:32 Pain Scale: Adult cm10 ED Course: 15:09 Patient arrived in ED. cj3 15:12 Nayeli Montez PA-C is PHCP. sb4 15:12 Raymon Aparicio MD is Attending Physician. sb4 15:33 Triage completed. cm10 15:34 Arm band placed on right wrist. Patient placed in waiting room. cm10 16:36 CT Abd/Pelvis - IV Contrast Only In Process Unspecified. EDMS 16:39 Initial lab(s) drawn, by me, sent to lab. zm 16:54 CBC with Diff Sent. zm 16:54 CMP Sent. zm 16:54 Lipase Sent. zm 16:55 Inserted saline lock: 22 gauge in left antecubital area, using aseptic technique. Blood zm collected. Flushed with 10 mL NS. 17:12 Ethel Bowman, RN is Primary Nurse. aa5 17:30 Patient has correct armband on for positive identification. Bed in low position. Call aa5 light in reach. Side rails up X 1. Client placed on continuous cardiac and pulse oximetry monitoring. NIBP monitoring applied. ekg monitor on. Pulse ox on. NIBP on. 17:50 No provider procedures requiring assistance completed. aa5 19:04 Report given to MARII Hernandez and MARII Oneill. aa5 20:16 Michael Lau MD is Referral Physician. sb4 20:26 Provided Education on: plan of care. km10 20:57 IV discontinued, intact, bleeding controlled, No redness/swelling at site. Pressure km10 dressing applied. Administered Medications: 17:22 Drug: NS 0.9% IV 1000 ml IV at 1 bolus Per protocol; to be given as a bolus over 60 aa5 minutes Route: IV; Rate: 1 bolus; Site: left antecubital; 20:58 Follow up: Response: No adverse reaction; IV Status: Completed infusion 10 17:22 Drug: Ondansetron IVP 4 mg IVP once; over 2 minutes Route: IVP; Site: left antecubital; aa5 20:58 Follow up: Response: No adverse reaction; Nausea is decreased km10 19:58 Drug: NS 0.9% IV 1000 ml IV at 1 bolus Per protocol; to be given as a bolus over 60 km10 minutes Route: IV; Rate: 1 bolus; Site: left antecubital; 20:57 Follow up: Response: No adverse reaction; IV Status: Completed infusion km10 Medication: 17:30 VIS not applicable for this client. aa5 Outcome: 20:16 Discharge ordered by MD. [email or web address] 20:59 Discharged to home km10 20:59 Condition: stable 20:59 Condition: improved 20:59 Discharge instructions given to patient, Instructed on discharge instructions, follow up and referral plans. medication usage, Demonstrated understanding of instructions, follow-up care, medications, Prescriptions given X 3, 21:00 Patient left the ED. km10 Signatures: Dispatcher [employer] EDMS Ethel Bowman RN RN aa5 Janna Palacio Sophia PADarlene PAIsaC [email or web address] Cami Palacio RN RN cm10 Lilian Greene 3 Teresa Cleary RN RN km10
--- NOTE | 2024-06-19 20:16 | EDPHYS ---
Physician Documentation [facility] Name: Juan River Jr Age: 53 yrs Sex: Male : 1970 Arrival Date: 06/19/2024 Time: 15:00 Bed 7 Private MD: ED Physician Raymon Aparicio HPI: 06/19 16:08 This 53 yrs old Male presents to ER via Ambulatory with complaints of Possible sb4 Dehydration, Diarrhea. 16:08 Patient reports diarrhea x 5 days. States that he initially was having abdominal sb4 cramping with it but that has resolved. States the diarrhea has persisted. States that he took Imodium but had a bad reaction to it. States he is tolerating p.o. fluids but just feels weak and rundown. States he is having some lower back pain, is not sure if it is his kidneys or not. Denies any history of any diverticulitis or colitis. States his stool is just watery, nonbloody, no mucus noted. Historical: - Allergies: 15:33 No Known Allergies; cm10 - Home Meds: 15:33 valsartan 320 mg Oral tablet 1 tab daily [Active]; amlodipine 10 mg oral tablet cm10 [Active]; Trelegy Ellipta inhalation [Active]; Xanax 0.5 mg Oral tablet as needed [Active]; - PMHx: 15:33 Anxiety; Asthma; COPD; Hypertensive disorder; cm10 - PSHx: 15:33 R shoulder; cm10 - Immunization history:: Adult Immunizations up to date. - Infectious Disease History:: Denies. - Social history:: Smoking status: Patient/guardian denies using tobacco. ROS: 16:08 Constitutional: Negative for fever, chills, and weight loss, sb4 16:08 Abdomen/GI: Positive for diarrhea, abdominal cramps, 16:08 All other systems are negative, Exam: 16:08 Head/Face: Normocephalic, atraumatic. Eyes: Extra-ocular motions intact. Periorbital sb4 areas with no swelling, redness, or edema. ENT: Mucous membranes moist. Cardiovascular: Regular rate and rhythm with a normal S1 and S2. Respiratory: No increased work of breathing, no retractions or nasal flaring. Abdomen/GI: Soft, non-tender, no distension. Skin: Warm, dry with normal turgor. Normal color with no rashes, no lesions, and no evidence of cellulitis. 16:08 Constitutional: The patient appears in no acute distress, alert, awake, obese, Vital Signs: 15:32 BP 116 / 79; Pulse 116; Resp 18; Temp 98.4(O); Pulse Ox 92% on R/A; Weight 111.13 kg; cm10 Height 5 ft. 9 in. ; Pain 0/10; 17:30 BP 117 / 79; Pulse 102; Resp 18 S; Pulse Ox 92% on R/A; aa5 19:14 BP 106 / 76; Pulse 102; Resp 20; Pulse Ox 91% on R/A; km10 20:56 BP 121 / 83; Pulse 91; Resp 20; Temp 98.5(O); Pulse Ox 92% on R/A; km10 15:32 Body Mass Index 36.18 (111.13 kg, 175.26 cm) cm10 15:32 Pain Scale: Adult cm10 MDM: 15:34 Medical Screening Exam initiated sb4 20:15 Data reviewed: vital signs, nurses notes, lab test result(s), radiologic studies, and sb4 as a result, I will discharge patient. Care significantly affected by the following chronic conditions: Hypertension, Obesity. Counseling: I had a detailed discussion with the patient and/or guardian regarding the historical points, exam findings, and any diagnostic results supporting the discharge/admit diagnosis, lab results, radiology results, the need for outpatient follow up, for definitive care, to return to the emergency department if symptoms worsen or persist or if there are any questions or concerns that arise at home. 06/19 15:40 Order name: CBC with Diff; Complete Time: 17:12 sb4 06/19 15:40 Order name: CMP; Complete Time: 17:23 sb4 06/19 15:40 Order name: Lipase; Complete Time: 17:23 sb4 06/19 15:40 Order name: Fecal Leukocyte Stain sb06/19 15:40 Order name: Ova And Parasites sb06/19 15:40 Order name: Rotavirus Antigen; Complete Time: 19:09 sb4 06/19 15:40 Order name: Stool Culture sb4 06/19 15:40 Order name: CDIFF; Complete Time: 19:20 sb4 06/19 17:04 Order name: CREATININE WHOLE BLOOD; Complete Time: 17:04 EDMS 06/19 15:40 Order name: CT Abd/Pelvis - IV Contrast Only sb4 06/19 15:40 Order name: IV Saline Lock; Complete Time: 16:54 sb4 06/19 15:40 Order name: Labs collected and sent; Complete Time: 16:54 sb4 Administered Medications: 17:22 Drug: NS 0.9% IV 1000 ml IV at 1 bolus Per protocol; to be given as a bolus over 60 aa5 minutes Route: IV; Rate: 1 bolus; Site: left antecubital; 20:58 Follow up: Response: No adverse reaction; IV Status: Completed infusion km10 17:22 Drug: Ondansetron IVP 4 mg IVP once; over 2 minutes Route: IVP; Site: left antecubital; aa5 20:58 Follow up: Response: No adverse reaction; Nausea is decreased km10 19:58 Drug: NS 0.9% IV 1000 ml IV at 1 bolus Per protocol; to be given as a bolus over 60 km10 minutes Route: IV; Rate: 1 bolus; Site: left antecubital; 20:57 Follow up: Response: No adverse reaction; IV Status: Completed infusion km10 Disposition Summary: 06/19/24 20:16 Discharge Ordered Notes: Location: Home sb4 Problem: new sb4 Symptoms: have improved sb4 Condition: Stable sb4 Diagnosis - Diarrhea, unspecified sb4 Followup: sb4 - With: Michael Lau MD - When: 1 week - Reason: Recheck today's complaints, Continuance of care, Re-evaluation by your physician Discharge Instructions: - Discharge Summary Sheet sb4 - Food Choices to Help Relieve Diarrhea, Adult sb4 - Diarrhea, Adult sb4 Forms: - Antibiotic Education sb4 - Patient Portal Instructions sb4 - Leadership Thank You Letter sb4 Prescriptions: - Imodium A-D 2 mg Oral tablet - take 1 tablet ORAL route every 6 hours as needed for loose stool; 10 tablet; sb4 Refills: 0, Product Selection Permitted - Flagyl 500 mg Oral Tablet - take 1 tablet ORAL route every 12 hours for 7 days; 14 tablet; Refills: 0, sb4 Product Selection Permitted - Cipro 500 mg Oral Tablet - take 1 tablet ORAL route every 12 hours for 7 days; 14 tablet; Refills: 0, sb4 Product Selection Permitted Signatures: Dispatcher [employer] Ethel Maddox, RN RN aa5 Nayeli Montez PA-C PA-C sb4 Cami Palacio, RN RN cm10 Teresa Cleary RN RN km10
--- NOTE | 2024-06-19 20:26 | RAD REPORT ---
EXAMINATION: CT CT ABDOMEN PELVIS WITH IV CONTRAST CLINICAL INDICATION: Male, 53 years old. diarrhea;Abd pain TECHNIQUE: CT abdomen and pelvis was performed, after the administration of IV contrast, as per [facility] protocol. Axial, sagittal and coronal reconstructions were obtained. One or more of the following dose reduction techniques were used: Automated exposure control, adjustment of the mA and k V according to patient size, and iterative reconstruction. Unless otherwise specified, incidental findings do not require dedicated imaging follow-up. COMPARISON: No prior exam. FINDINGS: LOWER CHEST: The visualized lung bases are clear. LIVER: Normal in size and contour. No focal lesion. BILIARY SYSTEM: No suspicious abnormalities. SPLEEN: Normal size. No focal lesion. PANCREAS: No mass, ductal dilation, or leon-pancreatic fluid. ADRENALS: Normal; no mass. KIDNEYS: Normal size and contour. No hydronephrosis. Subcentimeter right cortical fluid density lesio ns suggesting small cysts, not well characterized. URINARY BLADDER: Should or should not a decompressed limiting evaluation, without suspicious findings . GASTROINTESTINAL TRACT: No evidence of free air, significant intra-abdominal free fluid, bowel obstru ction or abscess. Distal colonic diverticulosis without evidence of acute diverticulitis. APPENDIX: Normal appendix. LYMPH NODES: No lymphadenopathy. MUSCULOSKELETAL: No acute or suspicious osseous abnormality. ADDITIONAL FINDINGS: Small umbilical hernia containing fat. Diastasis recti.. IMPRESSION: No acute or concerning abnormalities seen in the abdomen or pelvis. Incidental findings as above. Electronically signed by: Miguel Wilkins MD 06/19/2024 04:59 PM CDT Due to temporary technical issues with the PACS/[employer] reporting system, reports are being avery d by the in-house radiologist without review as a courtesy to ensure prompt reporting the interpreting radiologist is fully responsible for the content of the report. Transcribed Date/Time: 06/19/2024 8:26 PM
[2024-06-19 21:19] VITALS: BP 121/83; TEMP 98.5; O2SAT 92
== END 2024-06-19 21:00 | disposition home or self-care (01) ==
LOC: ER 15:00
DX: R19.7 Diarrhea, unspecified (principal); I10 Essential (primary) hypertension; J44.9 Chronic obstructive pulmonary disease, unspecified; F41.9 Anxiety disorder, unspecified
CPT/HCPCS: 96361; 87045; 85025; 36415; 89055; 87177; 82565; 87046; 87209; 87324; 83690; 80053; 87425; 74177; 96374; 99285; Q9967; J2405; J7030 ×2